=== PATIENT | female | born 1995 | race Caucasian/White ===

== ENCOUNTER → 2018-01-16 14:46 | Outpatient (CLI) | payer BC, MEDICAID, SELFPAY ==
[2018-01-16 17:14] LABS: Hematocrit 38.1 % (37-47); Hemoglobin 12.3 g/dl (12.0-15.0); Mean Corp Hgb Conc 32.3 g/gl (32-36); Mean Corpuscular Hgb 29.1 pg (27.0-32.0); Mean Corpuscular Volume 90.1 fL (81-99); Mean Platelet Vol. 10.1 fl (6.2-12.0); Platelet Count 243 K/mm3 (150-450); RBC Distribution Width CV 13.5 % (11.6-14.6); RBC Distribution Width SD 44.4 fl (35.1-43.9); Red Blood Count 4.23 M/mm3 (4.2-5.4)
[2018-01-16 17:15] LABS: Scan Indicated on CBC? Y/N NO
[2018-01-16 17:36] LABS: Free T3 2.9 pg/mL (2.18-3.98); T4 Free Direct 1.08 ng/dL (0.76-1.46); Thyroid Stim Hormone (TSH) 1.62 uIU/mL (0.358-3.74)
[2018-01-16 19:04] LABS: Chlamydia Trachomatis by PCR Negative (Negative); Neisserai gonorrhoeae by PCR Negative (Negative); Probe Check PASS; Sample Adequacy Control PASS; Specimen Processing Control PASS
[2018-01-19 10:02] LABS: Cancer Antigen 125 12.2 U/mL (0.0-38.1)
[2018-01-23 12:58] LABS: HPV Reflexed? NOT INDICATED
== END ==
PROVIDERS: Visit Provider Obstetrics & Gynecology
DX: Z12.4 Encounter for screening for malignant neoplasm of cervix (principal); Z11.3 Encounter for screening for infections with a predominantly sexual mode of transmission; N92.6 Irregular menstruation, unspecified; N93.9 Abnormal uterine and vaginal bleeding, unspecified
CPT/HCPCS: 36415; 84439; 84443; 84481; 85027; 86304; 87491; 87591; 88175; G0145

== ENCOUNTER → 2018-02-10 17:35 | Outpatient (CLI) | payer BC, MEDICAID, SELFPAY ==
--- NOTE | 2018-02-10 | IMM_PTH ---
PATIENT: DOREEN QUINONEZ LOC: [facility] U#:[id number] AGE/SX: 29/F ROOM: RE02/10/[address]: Dr. Oly Jennings MD : 1995 BED: DIS: SPEC #: [id number] RECD: 02/12/18 13:56 STATUS: CJ REQ #: [id number] DOMINGUEZ: 02/10/18 00:[address]: Oly Mendoza DEPT: IMMUNOHISTOCHEMISTRY RECD BY: Hamida Zhu ENTERED: 02/12/18 13:57 SP TYPE: IMMUNO OTHR DR: Dr. Sd Osman DO Tissues: B - Uterine cervix, NOS C - Uterine cervix, NOS Procedures: p16 (initial) KI-67 (add) PHYSICIAN & INSTITUTION [place] [id number] SPECIMEN INFORMATION: Tissue Source: B ? Cervical biopsy 12 o?clock, C - Cervical biopsy 6 o?clock Clinical Info: HGSIL Specimen Number: [id number] B & C CPT code: 00166 x2, 40569 x2 METHODOLOGY: Deparaffinized sections of prefer/formalin-fixed tissue or PAP/DQ stained slides are incubated with monoclonal/polyclonal antibodies/oligonucleotide probes. Localization is made via biotin free immunoperoxidase method. Appropriate controls are performed and reacted as expected. Results on target cell population are indicated in the following table: RESULTS: ANTIBODY / CLONE RESULT Block B P16 (E6H4) positive, block staining Ki-67 (30-9) positive, moderate Block C P16 (E6H4) positive, patchy staining Ki-67 (30-9) positive, low These tests were developed and their performance characteristics determined by [facility]. They may not have been cleared or approved by the U.S. Food and Drug Administration. The FDA has determined that such clearance or approval is not necessary. INTERPRETATION: B. Cervix, 12 o?clock, biopsy: Mild and moderate squamous dysplasia. C. Cervix, 6 o?clock, biopsy: Focal changes consistent with HPV cytopathic effects. SJ:laura 02/13/18
--- NOTE | 2018-02-10 16:50 | ECC_PTH ---
PATIENT: DOREEN QUINONEZ LOC: [facility] U#:[id number] AGE/SX: 29/F ROOM: RE02/10/[address]: Dr. Oly Jennings MD : 1995 BED: DIS: SPEC #: [id number] RECD: 02/10/18 17:22 STATUS: CJ JASMYN #: [id number] DOMINGUEZ: 02/10/18 16:[address]: Oly Mendoza DEPT: SURGICAL PATHOLOGY RECD BY: Renato Mixon ENTERED: 02/11/18 06:17 SP TYPE: ECC OTHR DR: Dr. Sd Osman DO Tissues: A - Endocervical B - Uterine cervix, NOS C - Uterine cervix, NOS D - Uterine cervix, NOS Procedures: Surgery Specimen Level IV HEADER OPERATION: Colposcopy PRE-OP DIAGNOSIS: HGSIL (R87.613) TISSUE SUBMITTED: A ? ECC, B ? Cervical biopsy 12 o?clock, C - Cervical biopsy 6 o?clock, D - Cervical biopsy 8 o?clock MICROSCOPIC DIAGNOSIS A. ECC: Scant fragments of benign endometrial tissue. B. Cervix, 12 o?clock, biopsy: Mild and focal moderate squamous dysplasia with HPV changes. See comment. C. Cervix, 6 o?clock, biopsy: A minute fragment of squamous epithelium with focal changes consistent with HPV cytopathic effects. See comment. D. Cervix, 8 o?clock, biopsy Fragment of benign endocervical mucosa, negative for dysplasia. See comment. SJ:laura 02/12/18 COMMENT B & C. Immunohistochemistry ([id number]) for surrogate HPV marker (p16) supports the above diagnosis. D. Transitional zone mucosa is not present in the submitted specimen. MICROSCOPIC DESCRIPTION Slides are reviewed. GROSS DESCRIPTION A - Received in fixative is one container labeled with the patient's name and designated ECC. The specimen consists of multiple irregular fragments of junior mucoid tissue that in aggregate measure 2 x 1 x 0.1 cm. The specimen is totally submitted in one cassette. B - Received in fixative is one container labeled with the patient's name and designated cervical biopsy 12 o'clock. The specimen consists of two irregular fragments of light junior soft tissue that in aggregate measure 0.8 x 0.3 x 0.1 cm. The specimen is totally submitted in one cassette. C - Received in fixative is one container labeled with the patient's name and designated cervical biopsy 6 o'clock. The specimen consists of multiple irregular fragments of junior mucoid tissue that in aggregate measure 0.3 x 0.3 x 0.1 cm. The specimen is totally submitted in one cassette. D - Received in fixative is one container labeled with the patient's name and designated cervical biopsy 8 o'clock. The specimen consists of one irregular fragment of light junior soft tissue that measures 0.3 x 0.3 x 0.1 cm. The specimen is totally submitted in one cassette. / SJ:rg 02/11/18 TC:5 CPT: 73628 x4
== END ==
PROVIDERS: Family Provider Family Medicine; PCP Family Medicine; Visit Provider Obstetrics & Gynecology
DX: N87.0 Mild cervical dysplasia (principal)
CPT/HCPCS: 88305; 88341; 88342

== ENCOUNTER 2018-03-19 11:16 | Day surgery (SDC) | payer BC, MEDICAID, SELFPAY ==
[2018-03-16 13:18] VITALS: BP 115/67; PULSE 68; RESP 16; TEMP 36.8; O2SAT 99; BMI 24.6
--- NOTE | 2018-03-16 13:43 | SDCEKG_ITS ---
Test Reason : Blood Pressure : / mmHG Vent. Rate : 063 BPM Atrial Rate : 063 BPM P-R Int : 118 ms QRS Dur : 084 ms QT Int : 398 ms P-R-T Axes : 035 071 052 degrees QTc Int : 407 ms Normal sinus rhythm Normal ECG Confirmed by ALLY KELLEY, TIM ([id number]), digital editor MADDISON GRANADO ([id number]) on 03/17/2018 1:28:48 PM Referred By: Oly Tanner Confirmed By:TIM CANALES MD
[2018-03-16 14:54] LABS: Hematocrit 39.5 % (37-47); Hemoglobin 12.4 g/dl (12.0-15.0); Mean Corp Hgb Conc 31.4 g/gl (32-36); Mean Corpuscular Volume 92.5 fL (81-99); Mean Platelet Vol. 9.7 fl (6.2-12.0); Platelet Count 280 K/mm3 (150-450); RBC Distribution Width SD 44.2 fl (35.1-43.9); Red Blood Count 4.27 M/mm3 (4.2-5.4); White Blood Count 6.8 K/mm3 (4.4-11.0)
[2018-03-16 15:01] LABS: Prothrombin Time (Protime)PT. 13.5 SECONDS (11.7-14.9)
[2018-03-16 15:02] LABS: Partial Thromboplast Time 28.6 Seconds (24.1-36.2)
[2018-03-16 15:03] LABS: Scan Indicated on CBC? Y/N NO
[2018-03-16 15:18] LABS: AST(SGOT) 11 U/L (15-37); Alanine Aminotransfer ALT/SGPT 17 U/L (13-56); Alkaline Phosphatase 55 U/L (45-117); Anion Gap 5 (5-15); BUN 13 mg/dL (7-18); BUN/Creat Ratio 16.9 RATIO (10-20); Bilirubin, Direct 0.17 mg/dL (0.00-0.30); Calcium,Total 9.1 mg/dL (8.5-10.1); Chloride 104 mmol/L (98-107); Creatinine, Serum 0.77 mg/dL (0.55-1.02); EST Glomerular Filtration Rate 100 mL/min (>60); Est Glom Filt Rate - Afr Amer 120 mL/min (>60); Estimated Creatinine Clearance 90.64 ml/min; Globulin 3.5 g/dL (2.2-4.2); Glucose 73 mg/dL (74-106); Potassium 4.1 mmol/L (3.5-5.1); Protein, Total 7.5 g/dL (6.4-8.2); Sodium Level 142 mmol/L (136-145)
--- NOTE | 2018-03-19 | IMM_PTH ---
PATIENT: DOREEN QUINONEZ LOC: [facility] [place] U#:[id number] AGE/SX: 22/F ROOM: RE03/19/[address]: Dr. Oly Jennings MD : 1995 BED: DIS: 03/19/2018 SPEC #: [id number] RECD: 03/23/18 13:00 STATUS: CJ JASMYN #: [id number] DOMINGUEZ: 03/19/18 00:[address]: Oly Mendoza DEPT: IMMUNOHISTOCHEMISTRY RECD BY: Hamida Zhu ENTERED: 03/23/18 13:01 SP TYPE: IMMUNO OTHR DR: Dr. Sd Osman, DO Tissues: B - Uterine cervix, NOS Procedures: p16 (initial) KI-67 (add) PHYSICIAN & INSTITUTION [place] [id number] SPECIMEN INFORMATION: Tissue Source: B ? Ectocervix, open at 5 o?clock Clinical Info: Chronic pelvic pain, high-grade cervical dysplasia Specimen Number: [id number] B1 CPT code: 98385, 69801 METHODOLOGY: Deparaffinized sections of prefer/formalin-fixed tissue or PAP/DQ stained slides are incubated with monoclonal/polyclonal antibodies/oligonucleotide probes. Localization is made via biotin free immunoperoxidase method. Appropriate controls are performed and reacted as expected. Results on target cell population are indicated in the following table: RESULTS: ANTIBODY / CLONE RESULT Block B1 P16 (E6H4) positive, block staining Ki-67 (30-9) positive, moderate These tests were developed and their performance characteristics determined by [facility]. They may not have been cleared or approved by the U.S. Food and Drug Administration. The FDA has determined that such clearance or approval is not necessary. INTERPRETATION: B. Ectocervix, open at 5 o?clock: Mild and moderate squamous dysplasia. LA:laura 03/24/18
[2018-03-19 11:38] VITALS: BP 118/56; PULSE 69; RESP 16; TEMP 36.7; O2SAT 100; BMI 24.6
[2018-03-19 11:43] LABS: Internal QC Validated? YES +Cl - CLEAR BKGD; Pregnancy, Urine Negative Negative
--- NOTE | 2018-03-19 12:45 | TISS_PTH ---
PATIENT: DOREEN QUINONEZ LOC: [facility] [place] U#:[id number] AGE/SX: 22/F ROOM: RE03/19/[address]: Dr. Oly Jennings MD : 1995 BED: DIS: 03/19/2018 SPEC #: [id number] RECD: 03/19/18 14:23 STATUS: CJ JASMYN #: [id number] DOMINGUEZ: 03/19/18 12:[address]: Oly Mendoza DEPT: SURGICAL PATHOLOGY RECD BY: Erika Ortiz ENTERED: 03/20/18 08:48 SP TYPE: Tissue Bx OTHR DR: Dr. Sd Osman, DO Tissues: A - TISSUE SURGICALLY REMOVED B - Uterine cervix, NOS C - Uterine cervix, NOS Procedures: Surgery Specimen Level IV Surgery Specimen Level V HEADER OPERATION: Diagnostic laparoscopy, LEEP PRE-OP DIAGNOSIS: Chronic pelvic pain, high grade cervical dysplasia TISSUE SUBMITTED: A. Left uterosacral biopsy, B. Ectocervix, open at 5 o?clock, C. Endocervix MICROSCOPIC DIAGNOSIS A. Left uterosacral, biopsy: Endometriosis. Focal chronic inflammation. B. Ectocervix, LEEP conization: Mild and focal moderate squamous dysplasia with HPV changes (HGSIL and SCAR I-II). Focal chronic inflammation and squamous metaplasia. Resection margins are free of dysplastic changes. C. Endocervix, curettings: Fragments of benign endocervical epithelium, blood and mucous negative for dysplasia. SJ:laura 03/23/18 COMMENT B. Immunohistochemistry ([id number]) for surrogate HPV marker (p16) supports the above diagnosis. Please make reference to previous specimen ([id number]) cervix, 12 o?clock, biopsy with diagnosis of mild and focal moderate squamous dysplasia with HPV changes. MICROSCOPIC DESCRIPTION Slides are reviewed. GROSS DESCRIPTION A - Received in fixative is one container labeled with the patient's name and designated left uterosacral biopsy. The specimen consists of a piece of congested soft tissue measuring 0.8 x 0.5 x 0.1 cm. The specimen is totally submitted in one cassette. B - Received in fixative is one container labeled with the patient's name and designated ectocervix, open at 5 o'clock. The specimen consists of a previously opened junior, indurated piece of tissue consistent with LEEP conization measuring 3 x 1.5 x 0.5 cm. The specimen is open identified as 5 o?clock position. No mucosal lesion is identified. The nonmucosal surface is inked black. The specimen is serially sectioned and submitted entirely in four cassettes as follows: 1 ? 12 to 3 o?clock, 2 ? 3 to 6 o?clock, 3 ? 6 to 9 o?clock, 4 ? 9 to 12 o?clock. C - Received in fixative is one container labeled with the patient's name and designated endocervix. The specimen consists of multiple fragments of junior, hemorrhagic soft tissue that in aggregate measure 0.5 x 0.5 x 0.1 cm. Please note there are multiple small fragments of gauze also in the specimen. The specimen is totally submitted in one cassette. / LA:laura 03/20/18 TC:5 CPT: 94478 x2, 95929
[2018-03-19] MEDS: Bupivacaine Mpf 0.5% 30 ML VIAL (13:40)
[2018-03-19] MEDS: FERRIC SUBSULFATE 8 GM SOLN (13:50)
[2018-03-19 14:16] VITALS: BP 118/56; BP 130/95; BP 131/96; PULSE 82; PULSE 87; RESP 14; RESP 16; TEMP 36.5; O2SAT 100
--- NOTE | 2018-03-19 14:23 | OP.PCM_ITS ---
Problem List (1) Chronic pelvic pain in female Status: Acute (2) SCAR II (cervical intraepithelial neoplasia II) Status: Acute Comment: SCAR 2 at 12 o'clock on bx Report of Operation Date of Procedure: 03/19/18 Pre-Operative Diagnosis: CIN2, chronic pelvic pain Surgery/Procedure Performed:: CIN2, chronic pelvic pain Description of Surgical Findings:: Brown endometriotic appearing lesion at left uterosacral ligament Normal tubes and ovaries and uterus special education paraeducator: Autumn Virgen Type of Anesthesia:: General Anesthesiologist: Devonte Huffman Specimen's removed: 1. left uterosacral peritoneum. 2. ectocervix. 3. endocervical curettings Drains: lara - 100 ml Estimated Blood Loss (mL): 50 Description of Procedure: The patient was brought to the operating room and signed and was performed. She is placed in a dorsal supine position and induced under general anesthesia and intubated. She was repositioned into dorsal lithotomy and her arms were tucked at her sides. An examination under anesthesia was performed. The perineum and abdomen were prepped and draped in sterile fashion. The patient was placed into high lithotomy and a Lara catheter placed into the bladder. He weighted speculum placed to the vagina cervix visualized and sounded the uterus. A HUMI uterine manipulator was placed and secured. Speculum was removed from the vagina. Patient was then placed into low lithotomy and attention turned to the abdomen.. An inferior umbilical incision was made using a scalpel and Veress needle placed with successful hanging drop test and no aspirate. The abdomen was insufflated to 15 mmHg. Veress needle was removed and a 5 mm port was placed under laparoscopic guidance confirming entry into the abdominal cavity. A second suprapubic incision was made and 5 mm port was placed at this site. The abdomen and pelvis were inspected and notable for a left uterosacral lesion but otherwise normal-appearing. I placed a third incision and the left lower quadrant under transillumination and a 5 mm port was subsequently placed. The patient was placed into Trendelenburg and the left uterosacral peritoneum was sharply and bluntly dissected from the underlying ligamentous tissue. Bleeding was controlled using the monopolar [place]. The pelvis was suction irrigated and Jessica was placed at the site for additional hemostasis. The patient was flattened, abdomen desufflated and the ports removed from the abdomen. Incisional sites were closed using 4-0 Monocryl. A total of 10 cc of 1% lidocaine were placed at the site for additional analgesia. Attention was then turned to the perineum. The patient was then placed into high lithotomy. An insulated speculum was placed into the vagina and Monsel solution applied to the cervix with Lugol's resistance going clockwise between 5 and 12:00. A 2 cm loop electrode was used to perform a LEEP. The ectocervix is open at 5:00. Endocervical curettings were obtained. The ball electrode was utilized to fulgurate the excisional cervical bed and Monsel's was applied followed by 3 minutes compression however there was persistent bleeding. 0 Vicryl suture was used to Place Sturmdorf sutures with excellent hemostasis attained. The speculum was removed as well as the Lara catheter. The patient was placed into dorsal supine position, awakened, extubated and transferred to the recovery room without complication. Sponge and needle counts were correct ? 2. The patient tolerated the procedure well
--- NOTE | 2018-03-19 14:25 | DCINST_ITS ---
Discharge Diet: No Restrictions Discharge Activity: Return to Normal Activity, May not drive while taking narcotic pain medications., May Shower, - - No tub bath for 2-4 weeks May resume sexual activity in: 4-6 weeks Lifting Restrictions: 10-20 lb Call your doctor if your incision/area has: Continuous Slow Oozing, Sudden Increased Bleeding, Increased Pain/ Swelling, Increased Redness Call your doctor if you observe: Fever of 101 or Higher, Inability to urinate, Inability to have a bowel movement, Using more than one pad per hour, Shortness of breath, Chest pain, Calf discomfort, Uncontrolled pain Suture Line Care: Avoid Pulling/Pushing Remove Dressing in (days):: 1 Cleanse incision/area with: Soap & Water Allergies/Adverse Reactions: Allergies cefaclor [From Ceclor] Allergy (Verified 03/16/18 13:14) Hives Medications to take at Discharge Aspirin/Acetaminophen/Caffeine [Excedrin Extra Strength Caplet] 1 - 2 tab PO PRN PRN 03/16/18 Gabapentin [Neurontin] 300 mg PO TID PRN PRN 03/16/18 Paroxetine HCl [Paxil] 30 mg PO DAILY 03/16/18 Docusate Sodium [Colace] 100 mg PO BID PRN PRN #60 cap 03/19/18 Oxycodone [Oxyir] 5 mg PO Q4H PRN PRN 3 Days #18 tablet 03/19/18 The following prescriptions were given: Oxycodone [Oxyir] 5 mg PO Q4H PRN PRN 3 Days #18 tablet PRN Reason: Severe Pain (6-10/10) Docusate Sodium [Colace] 100 mg PO BID PRN PRN #60 cap PRN Reason: Constipation Primary Care Physician: Sd Osman [Primary Care Provider] - Test Results: Test results from this visit will be discussed in further detail at your follow- up appointment, if applicable. Please Follow Up With: Oyl Tanner MD When: 2-4 weeks
[2018-03-19 14:30] VITALS: BP 118/56; BP 123/85; PULSE 79; RESP 16; O2SAT 100
[2018-03-19 14:45] VITALS: BP 118/56; BP 123/73; PULSE 66; RESP 16; O2SAT 99
[2018-03-19 15:00] VITALS: BP 113/78; BP 118/56; PULSE 70; RESP 16; TEMP 36.6; O2SAT 97
== END 2018-03-19 15:57 | disposition home or self-care (01) ==
LOC: SDC 11:17 → AC 11:17
PROVIDERS: Anesthesiology; Family Provider Family Medicine; PCP Family Medicine; Visit Provider Obstetrics & Gynecology
PROC: (CPT 49320; principal; 2018-03-19 12:30)
DX: N87.1 Moderate cervical dysplasia (principal); F41.9 Anxiety disorder, unspecified; F17.200 Nicotine dependence, unspecified, uncomplicated; Z79.899 Other long term (current) drug therapy; K58.9 Irritable bowel syndrome, unspecified; G43.909 Migraine, unspecified, not intractable, without status migrainosus
CPT/HCPCS: 57522; 36415; 80048; 80076; 81025; 85027; 85610; 85730; 86850; 86900; 88305; 88307; 88341; 88342; 93005; J7120; J2405

== ENCOUNTER → 2018-07-20 16:52 | Outpatient (CLI) | payer BC, MEDICAID, SELFPAY ==
--- OUTSIDE RECORDS SUMMARY | 2018-09-01 16:12 | XMS RPT_ITS ---
:1995 Author Organization OHIP Care Team Providers Name Role Phone THIERRY RILEY Admitting Unavailable THIERRY RILEY Attending Unavailable LUANA CHEATHAM (CHETNA) Referring Unavailable LUANA CHEATHAM (ROBSONC) Referring Unavailable SD FERNANDES Referring Unavailable ANTONINA BOOKER Attending Unavailable THIERRY RILEY Referring Unavailable THIERRY RILEY Attending Unavailable RILEYTRACETHIERRY M Referring Unavailable RILEYPAULMA M Referring Unavailable ANTONINA BOOKER Attending Unavailable ANTONINA BOOKER Referring Unavailable HENRY, CHERI Referring Unavailable HENRY CHERI Attending Unavailable RILEY, THIERRY M Referring Unavailable HENRY, CHERI Referring Unavailable HENRY, CHERI Referring Unavailable Elder-Dick, Summer Attending Unavailable Jerrod-Dick, Summer Attending Unavailable Sd Fernandes Primary Care Unavailable Elder-Dick, Summer Referring Unavailable Elder-Dick, Summer Attending Unavailable Elder-Dick, Summer Referring Unavailable Sd Fernandes Primary Care Unavailable Sd Canales Attending Unavailable Jerrod-Dick, Summer Referring Unavailable Sd Fernandes Attending Unavailable Sd Fernandes Primary Care Unavailable Elder-Dick, Summer Attending Unavailable PROBLEMS PROBLEMS DATE TYPE CONDITION / CODE ATTENDING STATUS SOURCE 07/20/2018 Unknown N39.0 - Urinary Jerrod-Dick, Active [place] tract infection, [facility] site not specified / Hospital N39.0(ICD-10) Repository 07/20/2018 Unknown N30.90 - Cystitis, Elder-Dick, Active [place] unspecified without [facility] hematuria / Hospital N30.90(ICD-10) Repository 03/19/2018 Unknown Z98.890 - Other Eldre-Dick, Active [place] specified [facility] postprocedural Hospital states / Repository Z98.890(ICD-10) 04/20/2018 Unknown Z01.810 - Encounter Sd Canales Active [place] for preprocedural [facility] examination / Repository Z01.810(ICD-10) 02/13/2018 Active Syncope and collapse NA Active [facility] / R55(ICD-10) Clinic Main [place] Repository 02/13/2018 Active Compression of brain NA Active [facility] / G93.5(ICD-10) Clinic Other [place] Repository 02/11/2018 Unknown N92.2 - Excessive Elder-Dick, Active [place] menstruation at [facility] puberty / Hospital N92.2(ICD-10) Repository 01/21/2018 Unknown Z12.4 - Encounter Jerrod-Dick, Active [facility] for screening for [facility] malignant neoplasm [facility] of cervix / Repository Z12.4(ICD-10) 12/04/2017 Active Unknown / THIERRY RILEY Active [place] UNK(Unknown) M Clinic Other [place] Repository PROCEDURES PROCEDURES No Procedure Records FoundRESULTS RESULTS Observed: 07/20/2018 Status: F Source: [place] CULTURE, URINE 1:50 PM [facility] REPOSITORY Urine Culture Culture exhibits no growth. Performed By: #### [id number] #### [facility] [place], [id number] PROGRESS Observed: 07/14/2018 Status: COMPLETED Source: BELLE 9:04 AM [facility] REPOSITORY HNO ID: [id number] Author: Nola (Rn) Benjamin RN Service: (none) Author Type: Registered Nurse Type: Progress Notes Filed: 07/14/2018 9:07 AM Note Text: Test cancelled because patient missed her stress echo prior to tilt. The patient will rescheduled both CNOV Observed: 07/13/2018 Status: COMPLETED Source: BELLE 1:45 PM [facility] REPOSITORY Office Visit (SYNCMN) RADHA ROBLES ([id number]) 1995 F CHT Date Time Provider Department 07/13/18 1:45 PM [facility] NURSE SYNCMN During your visit today, we recorded the following information about you: Nola Linn RN, RN 07/14/2018 9:07 AM Signed Test cancelled because patient missed her stress echo prior to tilt. The patient will rescheduled both Referring Provider: CHERI FIGUEROA [[id number]] Allergies As of Date: 07/13/2018 Noted Allergy Reaction CECLOR (CEFACLOR) 09/15/2017 4 - Hives Date Reviewed: 07/13/2018 Reviewed by: Nola PondRn) Benjamin RN - Fully Assessed Primary Visit Diagnosis:Palpitations [R00.2] Prescriptions as of 07/13/2018 Sig: PAROXETINE 20 MG TABLET Take 20 mg by mouth once boom* Problem List As Of Date: 07/13/2018 (None) Encounter Status:Closed by NOLA LINN on 07/14/18 PROGRESS Observed: 06/01/2018 Status: COMPLETED Source: BELLE 3:30 PM [facility] REPOSITORY HNO ID: [id number] Author: Kurt Dia (Tech) Service: (none) Author Type: Callisthenics Instructor Type: Progress Notes Filed: 06/01/2018 3:32 PM Note Text: EVENT MONITOR DISPOSABLE PATCH INSTRUCTIONS Patient Name: Radha Robles Clinic Number: [id number] Skin prepped and cleansed with alcohol Patch secured to prepped area Monitor Activated Serial #: [id number] Patient Instructed: 1.) Prescribed order timeframe 2.) Bathing guidelines 3.) Usage of event button and diary documentation 4.) Return of monitor at the end of prescribed order 5.) Call with problems [phone] or [phone]. [phone] Patient expresses a good understanding of instructions LIYAH Delgado CNCNPATED Observed: 06/01/2018 Status: COMPLETED Source: BELLE 2:30 PM [facility] REPOSITORY Education (CARDMN) RADHA ORBLES ([id number]) 1995 F [facility] Date Time Provider Department 06/01/18 2:30 PM [facility] CARDMN Reason for Visit: Holter Monitor Application [261] Progress Notes: LIYAH Delgado 06/01/2018 3:32 PM Signed EVENT MONITOR DISPOSABLE PATCH INSTRUCTIONS Patient Name: Radha Robles Clinic Number: [id number] Skin prepped and cleansed with alcohol Patch secured to prepped area Monitor Activated Serial #: [id number] Patient Instructed: 1.) Prescribed order timeframe 2.) Bathing guidelines 3.) Usage of event button and diary documentation 4.) Return of monitor at the end of prescribed order 5.) Call with problems [phone] or [phone] ext. [phone] Patient expresses a good understanding of instructions LIYAH Delgado Primary Visit Diagnosis:Syncope, unspecified syncope type [R55] Other Visit Diagnosis:Palpitations [R00.2] During your visit today, we recorded the following information about you: Allergies As of Date: 06/01/2018 Noted Allergy Reaction CECLOR (CEFACLOR) 09/15/2017 4 - Hives Date Reviewed: 06/01/2018 Reviewed by: Saima Barlow RN - Fully Assessed Prescriptions as of 06/01/2018 Sig: PAROXETINE 20 MG TABLET Take 20 mg by mouth once boom* Encounter Status:Closed by KURT CASTLE on 06/01/18 PROGRESS Observed: 06/01/2018 Status: COMPLETED Source: BELLE 1:35 PM [facility] REPOSITORY HNO ID: [id number] Author: Cheri Figueroa DO Service: (none) Author Type: Physician Type: Progress Notes Filed: 08/02/2018 2:07 PM Note Text: [facility] [place] Rebecca Brush Department of Cardiovascular Medicine SECTION OF CARDIAC PACING and ELECTROPHYSIOLOGY OUTPATIENT VISIT DATE June 01, 2018 OUTPATIENT VISIT TYPE CONSULTATION ADDENDUM: she no showed for the stress echo and tilt was canceled if she wishes to reschedule she should contact the office Cheri Figueroa Jr, DO PRIMARY CARE PHYSICIAN: SD FERNANDES [address] [place] [address] REFERRING PHYSICIAN Thierry Riley MD [address] [facility] [address] HISTORY OF PRESENT ILLNESS: Cardiac consultation at the request of Dr. Thierry Riley.A copy of this consultation note will be provided to the requesting physician by way of shared Medical record or letter to requesting physician via US mail. NURSING INTAKE HISTORY: Ms. Robles is a 22 year old female who presents today for syncope. She has a past medical history of depression, anxiety, endometriosis and Chiari malformation. Patient has been having symptoms for a couple of years now. The main symptoms she experiences headaches, lightheadedness, and syncope. Her last syncopal episode was last year. She reports no feeling in her first 3 toes on both feet. She was prescribed gabapentin, but she stopped taking it because it was not working for her. She states that If she puts her arms up for more than a minute she will get numbness in the arms, they feel like jello. She also endorses brain fog, memory difficulties, balance issues, heart racing and chest pain. She experiences a racing heart sometimes with activity. This can last up to an hour, even once she sits down and relaxes. The heart racing is accompanied by chest pain. PAST MEDICAL HISTORY Diagnosis Date - Chiari malformation type I (HCC) - Depression - Endometriosis - IRON (generalized anxiety disorder) - Syncope PAST SURGICAL HISTORY Procedure Laterality Date - PAST SURGICAL HISTORY OF laproscopy for endometriosis and cervical CA SOCIAL HISTORY Social History Substance Use Topics - Smoking status: Current Every Day Smoker Packs/day: 0.50 Years: 7.00 Types: Cigarettes - Smokeless tobacco: Never Used - Alcohol use No FAMILY HISTORY Problem Relation Age of Onset - Diabetes Mother - Cancer Mother Cervical - Thyroid Father Thyroidectomy - Cancer Sister Cervical - Alcohol/Drug Sister - Cancer Maternal Grandmother Uterine and Cervical - Cancer Maternal Grandfather - No Known Problems Paternal Grandmother - Diabetes Paternal Grandfather ALLERGIES: ALLERGIES Allergen Reactions - Ceclor [Cefaclor] Hives MEDICATIONS: PARoxetine (PAXIL) 20 mg tablet Take 20 mg by mouth once daily. REVIEW OF SYSTEMS: GENERAL: Positive for:Weight loss , Weakness and Sleep difficulties HEENT: Positive for:Headache, Impaired Vision, Glasses, Hearing Impairment, Ringing in Ears, Nosebleeds, Poor Dental Care and Bleeding Gums NECK: Positive for: Swelling, Pain and Stiffness RESPIRATORY: Positive for: Cough, Blood in Sputum, Shortness of breath and Wheezing GASTROINTESTINAL: Positive for: Trouble swallowing, Heartburn, Change in bowel habits, Blood in stool and Dark black stools MUSCULOSKELETAL: Positive for: Muscle or joint pain, Stiffness and Joint swelling NEUROLOGIC/PSYCHIATRIC: Positive for: Weakness, Paralysis, Numbness, Tingling, Tremor, Nervousness or anxiety, Depressed mood, Memory loss SKIN: Positive for: Itching HEMATOLOGICAL/LYMPHATIC: Positive for: Easy bruising and Easy bleeding ENDOCRINE: Positive for: Heat or cold intolerance, Excessive sweating, Frequent urination and Frequent thirst Saima Yen BRAVO PHYSICAL EXAMINATION: Pulse (!) 53 Ht 157.5 cm (5' 2) Wt 62.1 kg (137 lb) BMI 25.06 kg/m? BP w/Orthostatic Vitals Date and Time Orthostatic BP Orthostatic Pulse BP Pulse BP Position BP Site BP Cuff Size 06/01/18 1406 111/77 80 -- -- Standing Left Arm Regular Adult 06/01/18 1401 110/72 64 -- -- Sitting Left Arm Regular Adult 06/01/18 1359 110/75 56 -- -- Supine Left Arm Regular Adult 06/01/18 1352 -- -- -- (!) 53 -- -- -- I personally interviewed, examined, confirmed and edited the history documented by the Nurse. In addition to the below note, I attest that I have personally re-taken the History, confirmed the ROS, PMX, PSHx, Medications and re-performed the physical examination. Below reflects my service. Patient presents to the Department of Cardiology, Section of Cardiac Electrophysiology, Center for Syncope and Autonomic Disorders, on June 01 at the request of her [facility] grain spouter Dr. riley to investigate multiple symptoms as above including recurrent chest pain and tightnes,s stabbing, previous syncope, lightheadedness dizziness, suspected to reflect autonomic dysfunction. My findings, recommendations, and plan of care will be added to the electronic medical record and forwarded to the [facility] physicians by [place] and to the patient and the local physicians by [place]. mail. Patient is 22 years old but a history of structural heart disease or arrhythmias. She has no diabetes or hypertension. She's not had an echo stress or monitor. Was concern for pseudotumor cerebri was previously on Diamox. Her last syncopal event was January 2017. She gets multiple headaches, paresthesias. She's had extensive cerebrovascular imaging has been shown to have a Chiari malformation an MRI. She is a heavy smoker up to half pack a day. She reports ongoing cognitive issues as well and frequently has imbalance. She follows no special diet but she does try to augment fluids with Gatorade. She exercises regularly with spinning. The patient has no known coronary artery disease, diabetes, hypertension, cancer, DVTs, PE, infarction, congenital heart disease, valvular heart disease, or congestive heart failure. The patient denies exertional angina, sustained palpitations, paroxysmal nocturnal dyspnea, peripheral edema, nitroglycerin use. The patient has no history of rheumatic disease, hepatic disease, renal disease, thyroid disease, or pulmonary disease. The patient has never had a temporary or permanent pacemaker, electrophysiologic study, ablation, cardiac catheterization, DC cardioversion or been treated with an anti-arrhythmic medication. The patient has never had a cardioembolic event, stroke, TIA, or been treated with coumadin or newer anticoagulation agents. The patient has never had a fat pad, muscle, nerve, skin or salivary biopsy, to rule out small fiber neuropathy, amyloidosis, mitochondrial disease, Sjogren's etc. Previous medications used: Midodrine-n Florinef-n Droxydopa-n Mestinon-n Beta blockers-n Ivabradine-n Serotonin drugs-y Anticholinergics-n The comprehensive review of systems of the nurse practitioner was repeated and verified by me. I performed a comprehensive physical examination. PHYSICAL EXAMINATION GENERAL: Well developed, well-nourished female in no acute cardiopulmonary distress. HEENT: Extraocular movements intact, pupils equally reactive to light and accommodation without jugular venous distention, carotid bruits, lymphadenopathy, or thyromegaly. LUNGS: Clear to auscultation and percussion. HEART: Rate and rhythm regular without gallops, murmurs, or rubs. ABDOMEN: Soft without masses or hepatosplenomegaly. No pain, rebound, guarding, or rigidity. EXTREMITIES: Free of peripheral edema. Pulses are intact. NEUROLOGIC: Grossly normal without focal neurologic deficit or lateralizing signs. EKG reveals normal sinus rhythm, normal [place] and QRS intervals, no evidence of long QT interval, accessory pathway, Brugada's syndrome, previous infarction, or early repolarization. Diagnosis:SINUS BRADYCARDIA OTHERWISE NORMAL ECG Confirmed by Otilio Dawson ([id number]) on 06/02/2018 10:10:23 AM ? Ventricular Rate : 53 ?BPM Atrial Rate : 53 ?BPM P-R Interval : 128 ?ms QRS Duration : 84 ?ms Q-T Interval : 412 ?ms QTC Calculation(Bezet) : 386 ?ms P [place] : 29 ?degrees R [place] : 50 ?degrees T [place] : 28 ?degrees Assessment/Plan: 22-year-old female with extensive symptoms as above suspected to reflect autonomic dysfunction. We will proceed with assessment for arrhythmias and structural heart disease with a stress echocardiogram, a prolonged ambulatory event monitor. We'll assess for orthostatic tachycardia with a tilt table test. We had an extensive discussion about our current understanding and approach to patients with orthostatic intolerance and how there is no unified theory about the pathophysiology and etiology of the relatively enigmatic disorder, but that our approaches focuses on investigation of underlying hemodynamic, cardiovascular and neurologic causes. If tilt is abnormal will perform comprehensive autonomic and hemodynamic assessment. We will obtain a QSART, autonomic reflexes, hemo echo and radionuclide hemodynamic study. We reviewed the perfunctory, empiric, nonpharmacologic approaches to autonomic dysfunction symptom amelioration including 5-7 g sodium diet, 1 or 2 L of sports drinks daily, knee-high, thigh-high or waist- high custom fitted compression stockings. 4-6 inch elevation of the head of the bed, and regular exercise, which could initially consist of non-gravitational exercise, so called Marquez protocol, consisting of aqua therapy, water walking, recumbent bike, NuStep, rowing machine et cetera, 3 or 4 times a week, 30-40 minutes and progressing to conventional exercise as tolerated. She absolutely has to discontinue smoking immediately, not only for obvious negative cardiovascular and pulmonary consequences but especially due to the well known deleterious effects of nicotine on the autonomic nervous system. she completed a ZIO patch Patient had a min HR of 43 bpm, max HR of 178 bpm, and avg HR of 85 bpm. Predominant underlying rhythm was Sinus Rhythm. Possible Ectopic Atrial Rhythm was present. Isolated SVEs were rare (<1.0%), and no SVE Couplets or SVE Triplets were present. Isolated VEs were rare (<1.0%), and no VE Couplets or VE Triplets were present. ? I reviewed the entire Zio Patch event recorder report and strips in detail and below reflects my interpretation. ? Patient utilized a event recorder from June 01 until June 15 for 13 days of data. There are 26 triggered activations for sinus rhythm and PACs. There were no diary entries. Most of the symptomatic triggers showed normal sinus rhythm with normal rates although there was occasionally sinus tachycardia. There was no significant ventricular ectopy. ? ? I suggested they contact my office in a week or so after the tests to review preliminary results and recommendations with my nurse practitioner and I will provide detailed summary of their visit with my suggestions. This note was partially generated using [employer] voice recognition system, and there may be some incorrect words, spellings, and punctuation that were not noted in checking the note before saving. Gabriele Figueroa DO CC: rosemary pt jhony fisher ECG COMPLETE W Observed: 06/01/2018 Status: F Source: BELLE INTERPRETATION 1:16 PM [facility] REPOSITORY NAME : RADHA ROBLES PID : [id number] : 1995 Gender : Female Race : ORD : [id number] Procedure Date : Jun 01 2018 13:16:52 Edit Date : Jun 02 2018 10:10:37 Diagnosis:SINUS BRADYCARDIA OTHERWISE NORMAL ECG Confirmed by Otilio Dawson ([id number]) on 06/02/2018 10:10:23 AM Ventricular Rate : 53 BPM Atrial Rate : 53 BPM P-R Interval : 128 ms QRS Duration : 84 ms Q-T Interval : 412 ms QTC Calculation(Bezet) : 386 ms P Tucson : 29 degrees R Tuc[place] : 50 degrees T [place] : 28 degrees Test Reason : Location : 314 : [facility] J-4 Overread By : Otilio Dawson Edited By : Otilio Dawson Referred By : CHERI FIGUEROA Acquired by : ANALILIA LOVE Observed: 06/01/2018 Status: COMPLETED Source: BELLE 1:15 PM [facility] REPOSITORY Office Visit (SYNCMN) DEVIFERMIN DAVISHEATHER aMrtin ([id number]) 1995 F CHT Date Time Provider Department 06/01/18 1:15 PM CHERI FIGUEROA SYNCMN During your visit today, we recorded the following information about you: Pulse Weight Height 53/minute 62.1 kg 1.575 m Cheri Figueroa Jr, DO, DO 07/06/2018 1:26 PM Signed Patient had a min HR of 43 bpm, max HR of 178 bpm, and avg HR of 85 bpm. Predominant underlying rhythm was Sinus Rhythm. Possible Ectopic Atrial Rhythm was present. Isolated SVEs were rare (<1.0%), and no SVE Couplets or SVE Triplets were present. Isolated VEs were rare (<1.0%), and no VE Couplets or VE Triplets were present. I reviewed the entire Zio Patch event recorder report and strips in detail and below reflects my interpretation. Patient utilized a event recorder from June 01 until June 15 for 13 days of data. There are 26 triggered activations for sinus rhythm and PACs. There were no diary entries. Most of the symptomatic triggers showed normal sinus rhythm with normal rates although there was occasionally sinus tachycardia. There was no significant ventricular ectopy. Cheri Figueroa Jr, DO July 05, 2018 4:10 PM Cheri Figueroa Jr, DO, DO 08/02/2018 2:07 PM Addendum [facility] [place] Rebecca Brush Department of Cardiovascular Medicine SECTION OF CARDIAC PACING and ELECTROPHYSIOLOGY OUTPATIENT VISIT DATE June 01, 2018 OUTPATIENT VISIT TYPE CONSULTATION ADDENDUM: she no showed for the stress echo and tilt was canceled if she wishes to reschedule she should contact the office Cheri Figueroa Jr, DO PRIMARY CARE PHYSICIAN: SD FERNANDES [address] [place] [address] REFERRING PHYSICIAN Thierry Riley MD [address] [facility] [address] HISTORY OF PRESENT ILLNESS: Cardiac consultation at the request of Dr. Thierry Riley.A copy of this consultation note will be provided to the requesting physician by way of shared Medical record or letter to requesting physician via US mail. NURSING INTAKE HISTORY: Ms. Robles is a 22 year old female who presents today for syncope. She has a past medical history of depression, anxiety, endometriosis and Chiari malformation. Patient has been having symptoms for a couple of years now. The main symptoms she experiences headaches, lightheadedness, and syncope. Her last syncopal episode was last year. She reports no feeling in her first 3 toes on both feet. She was prescribed gabapentin, but she stopped taking it because it was not working for her. She states that If she puts her arms up for more than a minute she will get numbness in the arms, they feel like jello. She also endorses brain fog, memory difficulties, balance issues, heart racing and chest pain. She experiences a racing heart sometimes with activity. This can last up to an hour, even once she sits down and relaxes. The heart racing is accompanied by chest pain. PAST MEDICAL HISTORY Diagnosis Date - Chiari malformation type I (HCC) - Depression - Endometriosis - IRON (generalized anxiety disorder) - Syncope PAST SURGICAL HISTORY Procedure Laterality Date - PAST SURGICAL HISTORY OF laproscopy for endometriosis and cervical CA SOCIAL HISTORY Social History Substance Use Topics - Smoking status: Current Every Day Smoker Packs/day: 0.50 Years: 7.00 Types: Cigarettes - Smokeless tobacco: Never Used - Alcohol use No FAMILY HISTORY Problem Relation Age of Onset - Diabetes Mother - Cancer Mother Cervical - Thyroid Father Thyroidectomy - Cancer Sister Cervical - Alcohol/Drug Sister - Cancer Maternal Grandmother Uterine and Cervical - Cancer Maternal Grandfather - No Known Problems Paternal Grandmother - Diabetes Paternal Grandfather ALLERGIES: ALLERGIES Allergen Reactions - Ceclor [Cefaclor] Hives MEDICATIONS: PARoxetine (PAXIL) 20 mg tablet Take 20 mg by mouth once daily. REVIEW OF SYSTEMS: GENERAL: Positive for:Weight loss , Weakness and Sleep difficulties HEENT: Positive for:Headache, Impaired Vision, Glasses, Hearing Impairment, Ringing in Ears, Nosebleeds, Poor Dental Care and Bleeding Gums NECK: Positive for: Swelling, Pain and Stiffness RESPIRATORY: Positive for: Cough, Blood in Sputum, Shortness of breath and Wheezing GASTROINTESTINAL: Positive for: Trouble swallowing, Heartburn, Change in bowel habits, Blood in stool and Dark black stools MUSCULOSKELETAL: Positive for: Muscle or joint pain, Stiffness and Joint swelling NEUROLOGIC/PSYCHIATRIC: Positive for: Weakness, Paralysis, Numbness, Tingling, Tremor, Nervousness or anxiety, Depressed mood, Memory loss SKIN: Positive for: Itching HEMATOLOGICAL/LYMPHATIC: Positive for: Easy bruising and Easy bleeding ENDOCRINE: Positive for: Heat or cold intolerance, Excessive sweating, Frequent urination and Frequent thirst Saima Yen RN PHYSICAL EXAMINATION: Pulse (!) 53 Ht 157.5 cm (5' 2) Wt 62.1 kg (137 lb) BMI 25.06 kg/m? BP w/Orthostatic Vitals Date and Time Orthostatic BP Orthostatic Pulse BP Pulse BP Position BP Site BP Cuff Size 06/01/18 1406 111/77 80 -- -- Standing Left Arm Regular Adult 06/01/18 1401 110/72 64 -- -- Sitting Left Arm Regular Adult 06/01/18 1359 110/75 56 -- -- Supine Left Arm Regular Adult 06/01/18 1352 -- -- -- (!) 53 -- -- -- I personally interviewed, examined, confirmed and edited the history documented by the Nurse. In addition to the below note, I attest that I have personally re-taken the History, confirmed the ROS, PMX, PSHx, Medications and re- performed the physical examination. Below reflects my service. Patient presents to the Department of Cardiology, Section of Cardiac Electrophysiology, Center for Syncope and Autonomic Disorders, on June 01 at the request of her [facility] grain spouter Dr. riley to investigate multiple symptoms as above including recurrent chest pain and tightnes,s stabbing, previous syncope, lightheadedness dizziness, suspected to reflect autonomic dysfunction. My findings, recommendations, and plan of care will be added to the electronic medical record and forwarded to the [facility] physicians by [place] and to the patient and the local physicians by [place] mail. Patient is 22 years old but a history of structural heart disease or arrhythmias. She has no diabetes or hypertension. She's not had an echo stress or monitor. Was concern for pseudotumor cerebri was previously on Diamox. Her last syncopal event was January 2017. She gets multiple headaches, paresthesias. She's had extensive cerebrovascular imaging has been shown to have a Chiari malformation an MRI. She is a heavy smoker up to half pack a day. She reports ongoing cognitive issues as well and frequently has imbalance. She follows no special diet but she does try to augment fluids with Gatorade. She exercises regularly with spinning. The patient has no known coronary artery disease, diabetes, hypertension, cancer, DVTs, PE, infarction, congenital heart disease, valvular heart disease, or congestive heart failure. The patient denies exertional angina, sustained palpitations, paroxysmal nocturnal dyspnea, peripheral edema, nitroglycerin use. The patient has no history of rheumatic disease, hepatic disease, renal disease, thyroid disease, or pulmonary disease. The patient has never had a temporary or permanent pacemaker, electrophysiologic study, ablation, cardiac catheterization, DC cardioversion or been treated with an anti-arrhythmic medication. The patient has never had a cardioembolic event, stroke, TIA, or been treated with coumadin or newer anticoagulation agents. The patient has never had a fat pad, muscle, nerve, skin or salivary biopsy, to rule out small fiber neuropathy, amyloidosis, mitochondrial disease, Sjogren's etc. Previous medications used: Midodrine-n Florinef-n Droxydopa-n Mestinon-n Beta blockers-n Ivabradine-n Serotonin drugs-y Anticholinergics-n The comprehensive review of systems of the nurse practitioner was repeated and verified by me. I performed a comprehensive physical examination. PHYSICAL EXAMINATION GENERAL: Well developed, well-nourished female in no acute cardiopulmonary distress. HEENT: Extraocular movements intact, pupils equally reactive to light and accommodation without jugular venous distention, carotid bruits, lymphadenopathy, or thyromegaly. LUNGS: Clear to auscultation and percussion. HEART: Rate and rhythm regular without gallops, murmurs, or rubs. ABDOMEN: Soft without masses or hepatosplenomegaly. No pain, rebound, guarding, or rigidity. EXTREMITIES: Free of peripheral edema. Pulses are intact. NEUROLOGIC: Grossly normal without focal neurologic deficit or lateralizing signs. EKG reveals normal sinus rhythm, normal [place] and QRS intervals, no evidence of long QT interval, accessory pathway, Brugada's syndrome, previous infarction, or early repolarization. Diagnosis:SINUS BRADYCARDIA OTHERWISE NORMAL ECG Confirmed by Otilio Dawson ([id number]) on 06/02/2018 10:10:23 AM ? Ventricular Rate : 53 ?BPM Atrial Rate : 53 ?BPM P-R Interval : 128 ?ms QRS Duration : 84 ?ms Q-T Interval : 412 ?ms QTC Calculation(Bezet) : 386 ?ms P [place] : 29 ?degrees R [place] : 50 ?degrees T [place] : 28 ?degrees Assessment/Plan: 22-year-old female with extensive symptoms as above suspected to reflect autonomic dysfunction. We will proceed with assessment for arrhythmias and structural heart disease with a stress echocardiogram, a prolonged ambulatory event monitor. We'll assess for orthostatic tachycardia with a tilt table test. We had an extensive discussion about our current understanding and approach to patients with orthostatic intolerance and how there is no unified theory about the pathophysiology and etiology of the relatively enigmatic disorder, but that our approaches focuses on investigation of underlying hemodynamic, cardiovascular and neurologic causes. If tilt is abnormal will perform comprehensive autonomic and hemodynamic assessment. We will obtain a QSART, autonomic reflexes, hemo echo and radionuclide hemodynamic study. We reviewed the perfunctory, empiric, nonpharmacologic approaches to autonomic dysfunction symptom amelioration including 5-7 g sodium diet, 1 or 2 L of sports drinks daily, knee-high, thigh-high or waist-high custom fitted compression stockings. 4-6 inch elevation of the head of the bed, and regular exercise, which could initially consist of non-gravitational exercise, so called Marquez protocol, consisting of aqua therapy, water walking, recumbent bike, NuStep, rowing machine et cetera, 3 or 4 times a week, 30-40 minutes and progressing to conventional exercise as tolerated. She absolutely has to discontinue smoking immediately, not only for obvious negative cardiovascular and pulmonary consequences but especially due to the well known deleterious effects of nicotine on the autonomic nervous system. she completed a ZIO patch Patient had a min HR of 43 bpm, max HR of 178 bpm, and avg HR of 85 bpm. Predominant underlying rhythm was Sinus Rhythm. Possible Ectopic Atrial Rhythm was present. Isolated SVEs were rare (<1.0%), and no SVE Couplets or SVE Triplets were present. Isolated VEs were rare (<1.0%), and no VE Couplets or VE Triplets were present. ? I reviewed the entire Zio Patch event recorder report and strips in detail and below reflects my interpretation. ? Patient utilized a event recorder from June 01 until June 15 for 13 days of data. There are 26 triggered activations for sinus rhythm and PACs. There were no diary entries. Most of the symptomatic triggers showed normal sinus rhythm with normal rates although there was occasionally sinus tachycardia. There was no significant ventricular ectopy. ? ? I suggested they contact my office in a week or so after the tests to review preliminary results and recommendations with my nurse practitioner and I will provide detailed summary of their visit with my suggestions. This note was partially generated using [employer] voice recognition system, and there may be some incorrect words, spellings, and punctuation that were not noted in checking the note before saving. Gabriele Figueroa DO CC: rosemary fisher Referring Provider: THIERRY RILEY [[id number]] Allergies As of Date: 06/01/2018 Noted Allergy Reaction CECLOR (CEFACLOR) 09/15/2017 4 - Hives Date Reviewed: 06/01/2018 Reviewed by: Saima Barlow RN - Fully Assessed Primary Visit Diagnosis:Other chest pain [R07.89] Other Visit Diagnoses:Syncope, unspecified syncope type [R55] Palpitations [R00.2] Order(s):OUTSIDE VENDOR CARDIAC OUTPATIENT EXTENDED RHYTHM RECORDING (WITHOUT TELEMETRY) [[id number]] Order #: [id number]. #:[id number]: 1 STRESS ECHO TREADMILL [[id number]] Order #: [id number]: 1 FUTURE TILT TABLE EVALUATION [[id number]] Order #: [id number]: 1 Prescriptions as of 06/01/2018 Sig: PAROXETINE 20 MG TABLET Take 20 mg by mouth once boom* Problem List As Of Date: 06/01/2018 (None) Medications Discontinued During This Encounter gabapentin (NEURONTIN) 300 mg capsule 90 c* 5 12/11/2017 06/01/2018 Route: ORAL Sig: Take 1 capsule by mouth three times daily for 30 days. Disc: Discontinued by another Health Care Provider Encounter Status:Closed by CHERI FIGUEROA DO on 06/13/18 PROCEDURE Observed: 06/01/2018 Status: COMPLETED Source: [place] 12:00 AM [facility] REPOSITORY [facility] ID: [id number] Author: Cheri Figueroa DO Service: (none) Author Type: Physician Type: Procedures Filed: 07/06/2018 1:26 PM Note Text: Patient had a min HR of 43 bpm, max HR of 178 bpm, and avg HR of 85 bpm. Predominant underlying rhythm was Sinus Rhythm. Possible Ectopic Atrial Rhythm was present. Isolated SVEs were rare (<1.0%), and no SVE Couplets or SVE Triplets were present. Isolated VEs were rare (<1.0%), and no VE Couplets or VE Triplets were present. I reviewed the entire o Patch event recorder report and strips in detail and below reflects my interpretation. Patient utilized a event recorder from June 01 until June 15 for 13 days of data. There are 26 triggered activations for sinus rhythm and PACs. There were no diary entries. Most of the symptomatic triggers showed normal sinus rhythm with normal rates although there was occasionally sinus tachycardia. There was no significant ventricular ectopy. Cheri Figueroa Jr, July 05, 2018 4:10 PM PROGRESS Observed: 04/16/2018 Status: COMPLETED Source: [place] 3:57 PM [facility] REPOSITORY HNO ID: [id number] Author: Antonina Booker Service: (none) Author Type: Physician Type: Progress Notes Filed: 04/18/2018 1:48 PM Note Text: CC : Jermainetent here for a f/u of chiari malformation. Interval HPI : Ms. Robles is 22 year old female with multiple complaints: headache, light headedness, hand numbness, passing out. Patient has been having symptoms for a couple of years now. She feels that the neck pain is fairly constant. It is aggravated by turning her head. She will develop a migraine. Light headedness is brought on by bending over, and other times no aggravativng incidents. She feels that she has hand numbness as well as feet and arms. If she puts her arms up for more than a minute she will get numbness in the arms. Hands go numb after arms have been moving for a while. No vision changes. Normal exam .She saw the gas appliance servicer helper twice, both times no papilledema. She has stopped the diamox that she was given. She will get warren's on and off. She always has a lot of pressure. This is constant. She also has retrobulbar pain. + brain fog and memory difficulties. She has balance issues as well. Today she reports that she has been having heart palpitations and more numbness in her toes 1st through 3rd digits b/l. All other symptoms from above are the same. ROS: see chart Current Medications : all meds are on the chart and have been reviewed by me. No change. Allergies : allergies are on the chart and have been reviewed by me. No change. EXAM : Awake and alert ox3 MENDIETA Face symmetric Speech Clear Tongue midline No pronator drift No past pointing Tandem walking wnl Assessment : Chiari malformation 6 mm descent Plan : Per Dr. Jhony Cheatham PAJoann April 16, 2018 3:57 PM Seen with both parents Moderately symptomatic cerebellar tonsillar descent MRI findings reviewed and explained 6 mm tonsillar descent with some crowding at formen magnum No tethering or syrinx involving spinal cord AP Rec expectant observation Pt and family understand and agree Antonina Booker MD CNOV Observed: 04/16/2018 Status: COMPLETED Source: [place] 3:40 PM [facility] REPOSITORY Office Visit (NSFRVW) RADHA ROBLES ([id number]) 1995 F CHT Date Time Provider Department 04/16/18 3:40 PM ANTONINA BOOKER NSFRVW During your visit today, we recorded the following information about you: Temperature Pulse Blood pressure Weight 98.6 degrees 80/minute 120/62 62.1 kg Height 1.575 m Antonina Booker MD 04/18/2018 1:48 PM Signed CC : Elvirat here for a f/u of chiari malformation. Interval HPI : Ms. Robles is 22 year old female with multiple complaints: headache, light headedness, hand numbness, passing out. Patient has been having symptoms for a couple of years now. She feels that the neck pain is fairly constant. It is aggravated by turning her head. She will develop a migraine. Light headedness is brought on by bending over, and other times no aggravativng incidents. She feels that she has hand numbness as well as feet and arms. If she puts her arms up for more than a minute she will get numbness in the arms. Hands go numb after arms have been moving for a while. No vision changes. Normal exam .She saw the gas appliance servicer helper twice, both times no papilledema. She has stopped the diamox that she was given. She will get warren's on and off. She always has a lot of pressure. This is constant. She also has retrobulbar pain. + brain fog and memory difficulties. She has balance issues as well. Today she reports that she has been having heart palpitations and more numbness in her toes 1st through 3rd digits b/l. All other symptoms from above are the same. ROS: see chart Current Medications : all meds are on the chart and have been reviewed by me. No change. Allergies : allergies are on the chart and have been reviewed by me. No change. EXAM : Awake and alert ox3 MENDIETA Face symmetric Speech Clear Tongue midline No pronator drift No past pointing Tandem walking wnl Assessment : Chiari malformation 6 mm descent Plan : Per Dr. Jhony Cheatham PA-C April 16, 2018 3:57 PM Seen with both parents Moderately symptomatic cerebellar tonsillar descent MRI findings reviewed and explained 6 mm tonsillar descent with some crowding at formen magnum No tethering or syrinx involving spinal cord AP Rec expectant observation Pt and family understand and agree Antonina Booker MD Referring Provider: ANTONINA BOOKER [[id number]] Allergies As of Date: 04/16/2018 Noted Allergy Reaction CECLOR (CEFACLOR) 09/15/2017 4 - Hives Date Reviewed: 04/16/2018 Reviewed by: Bakari Orantes Ma - Fully Assessed Reason for Visit: Follow Up [171] Primary Visit Diagnosis: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 [[id number]] Order #: [id number] FUTURE Prescriptions as of 04/16/2018 Sig: PAROXETINE 20 MG TABLET Take 20 mg by mouth once boom* GABAPENTIN 300 MG CAPSULE Take 1 capsule by mouth three* Problem List As Of Date: 04/16/2018 (None) Disposition: Return in about 1 year (around 04/16/2019) for Follow up after imaging complete. Follow-up and Disposition History Recorded Encounter Status:Closed by ANTONINA BOOKER MD on 04/18/18 DISCHARGE INSTRUCTION Observed: 03/19/2018 Status: F Source: [place] 2:25 PM [facility] REPOSITORY [facility] Medical Records Department [address] [place] [address] Instructions for Home/Discharge Instructions 03/19/18 1423 MR#: [id number] Acct: [id number] Name: RADHA ROBLES Rep #: [id number] : 1995 22 From: Oly Jennings MD PCP: Sd Fernandes Status: REG [facility] [place] Discharge Diet: No Restrictions Discharge Activity: Return to Normal Activity, May not drive while taking narcotic pain medications., May Shower, - - No tub bath for 2-4 weeks May resume sexual activity in: 4-6 weeks Lifting Restrictions: 10-20 lb Call your doctor if your incision/area has: Continuous Slow Oozing, Sudden Increased Bleeding, Increased Pain/ Swelling, Increased Redness Call your doctor if you observe: Fever of 101 or Higher, Inability to urinate, Inability to have a bowel movement, Using more than one pad per hour, Shortness of breath, Chest pain, Calf discomfort, Uncontrolled pain Suture Line Care: Avoid Pulling/Pushing Remove Dressing in (days):: 1 Cleanse incision/area with: Soap AND Water Allergies/Adverse Reactions: Allergies cefaclor [From Ceclor] Allergy (Verified 03/16/18 13:14) Hives Medications to take at Discharge Aspirin/Acetaminophen/Caffeine [Excedrin Extra Strength Caplet] 1 - 2 tab PO PRN PRN 03/16/18 Gabapentin [Neurontin] 300 mg PO TID PRN PRN 03/16/18 Paroxetine HCl [Paxil] 30 mg PO DAILY 03/16/18 Docusate Sodium [Colace] 100 mg PO BID PRN PRN #60 cap 03/19/18 Oxycodone [Oxyir] 5 mg PO Q4H PRN PRN 3 Days #18 tablet 03/19/18 The following prescriptions were given: Oxycodone [Oxyir] 5 mg PO Q4H PRN PRN 3 Days #18 tablet PRN Reason: Severe Pain (6-06/03) Docusate Sodium [Colace] 100 mg PO BID PRN PRN #60 cap PRN Reason: Constipation Primary Care Physician: Sd Fernandes [Primary Care Provider] - Test Results: Test results from this visit will be discussed in further detail at your follow-up appointment, if applicable. Please Follow Up With: Oly Tanner MD When: 2-4 weeks 03/19/18 2699 <Electronically signed by Oly Tanner MD> Date Oly Tanner MD CC: Sd Fernandes OPERATIVE REPORT Observed: 03/19/2018 Status: F Source: [place] 2:23 PM [facility] REPOSITORY [facility] Medical Records Department [address] [place] [address] Operative Report 03/19/18 1413 MR#: [id number] Acct: [id number] Name: RADHA ROBLES Rep #: [id number] : 1995 22 From: Oly Jennings MD PCP: Sd Fernandes Status: REG [facility] [place] Y Location: [place] [address] Problem List (1) Chronic pelvic pain in female Status: Acute (2) SCAR II (cervical intraepithelial neoplasia II) Status: Acute Comment: SCAR 2 at 12 o'clock on bx Report of Operation Date of Procedure: 03/19/18 Pre-Operative Diagnosis: CIN2, chronic pelvic pain Surgery/Procedure Performed:: CIN2, chronic pelvic pain Description of Surgical Findings:: Brown endometriotic appearing lesion at left uterosacral ligament Normal tubes and ovaries and uterus editor magazine: Autumn Virgen Type of Anesthesia:: General Anesthesiologist: Devonte Huffman Specimen's removed: 1. left uterosacral peritoneum. 2. ectocervix. 3. endocervical curettings Drains: lara - 100 ml Estimated Blood Loss (mL): 50 Description of Procedure: The patient was brought to the operating room and signed and was performed. She is placed in a dorsal supine position and induced under general anesthesia and intubated. She was repositioned into dorsal lithotomy and her arms were tucked at her sides. An examination under anesthesia was performed. The perineum and abdomen were prepped and draped in sterile fashion. The patient was placed into high lithotomy and a Lara catheter placed into the bladder. He weighted speculum placed to the vagina cervix visualized and sounded the uterus. A HUMI uterine manipulator was placed and secured. Speculum was removed from the vagina. Patient was then placed into low lithotomy and attention turned to the abdomen.. An inferior umbilical incision was made using a scalpel and Veress needle placed with successful hanging drop test and no aspirate. The abdomen was insufflated to 15 mmHg. Veress needle was removed and a 5 mm port was placed under laparoscopic guidance confirming entry into the abdominal cavity. A second suprapubic incision was made and 5 mm port was placed at this site. The abdomen and pelvis were inspected and notable for a left uterosacral lesion but otherwise normal-appearing. I placed a third incision and the left lower quadrant under transillumination and a 5 mm port was subsequently placed. The patient was placed into Trendelenburg and the left uterosacral peritoneum was sharply and bluntly dissected from the underlying ligamentous tissue. Bleeding was controlled using the monopolar [place]. The pelvis was suction irrigated and Jessica was placed at the site for additional hemostasis. The patient was flattened, abdomen desufflated and the ports removed from the abdomen. Incisional sites were closed using 4-0 Monocryl. A total of 10 cc of 1% lidocaine were placed at the site for additional analgesia. Attention was then turned to the perineum. The patient was then placed into high lithotomy. An insulated speculum was placed into the vagina and Monsel solution applied to the cervix with Lugol's resistance going clockwise between 5 and 12:00. A 2 cm loop electrode was used to perform a LEEP. The ectocervix is open at 5:00. Endocervical curettings were obtained. The ball electrode was utilized to fulgurate the excisional cervical bed and Monsel's was applied followed by 3 minutes compression however there was persistent bleeding. 0 Vicryl suture was used to Place Sturmdorf sutures with excellent hemostasis attained. The speculum was removed as well as the Lara catheter. The patient was placed into dorsal supine position, awakened, extubated and transferred to the recovery room without complication. Sponge and needle counts were correct 2. The patient tolerated the procedure well 03/19/18 1423 <Electronically signed by Oly Tanner MD> Date Oly Tanner MD CC: Sd Fernandes; Oly Tanner MD Signed TISSUE BIOPSY Observed: 03/19/2018 Status: F Source: [place] 12:45 PM [facility] REPOSITORY Patient: RADHA ROBLES : 1995 () Acct Num: [id number] Phys: Ciro KELLEY,Summer Unit Num: [id number] Loc: [facility] [place] Specimen: [id number] Received: 03/19/18 - 1423 Spec Type: Tissue Bx TISSUES TISSUES: A. TISSUE SURGICALLY REMOVED B. Uterine cervix, NOS C. Uterine cervix, NOS COMMENT B. Immunohistochemistry ([id number]) for surrogate HPV marker (p16) supports the above diagnosis. Please make reference to previous specimen ([id number]) cervix, 12 o clock, biopsy with diagnosis of mild and focal moderate squamous dysplasia with HPV changes. GROSS DESCRIPTION A - Received in fixative is one container labeled with the patient's name and designated left uterosacral biopsy. The specimen consists of a piece of congested soft tissue measuring 0.8 x 0.5 x 0.1 cm. The specimen is totally submitted in one cassette. B - Received in fixative is one container labeled with the patient's name and designated ectocervix, open at 5 o'clock. The specimen consists of a previously opened junior, indurated piece of tissue consistent with LEEP conization measuring 3 x 1.5 x 0.5 cm. The specimen is open identified as 5 o clock position. No mucosal lesion is identified. The nonmucosal surface is inked black. The specimen is serially sectioned and submitted entirely in four cassettes as follows: 1 12 to 3 o clock, 2 3 to 6 o clock, 3 6 to 9 o clock, 4 9 to 12 o clock. C - Received in fixative is one container labeled with the patient's name and designated endocervix. The specimen consists of multiple fragments of junior, hemorrhagic soft tissue that in aggregate measure 0.5 x 0.5 x 0.1 cm. Please note there are multiple small fragments of gauze also in the specimen. The specimen is totally submitted in one cassette. / LA:laura 03/20/18 TC:5 CPT: 18520 x2, 34437 HEADER OPERATION: Diagnostic laparoscopy, LEEP PRE-OP DIAGNOSIS: Chronic pelvic pain, high grade cervical dysplasia TISSUE SUBMITTED: A. Left uterosacral biopsy, B. Ectocervix, open at 5 o clock, C. Endocervix MICROSCOPIC DESCRIPTION Slides are reviewed. MICROSCOPIC DIAGNOSIS A. Left uterosacral, biopsy: Endometriosis. Focal chronic inflammation. B. Ectocervix, LEEP conization: Mild and focal moderate squamous dysplasia with HPV changes (HGSIL and SCAR I-II). Focal chronic inflammation and squamous metaplasia. Resection margins are free of dysplastic changes. C. Endocervix, curettings: Fragments of benign endocervical epithelium, blood and mucous negative for dysplasia. SJ:laura 03/23/18 Signed Dejan Glenn 03/24/18 <signature on file> Performed By: #### PTISS #### [facility] [address] [place], [place], [address] ,URINE Collected: 03/19/2018 Status: F Source: [place] 11:31 AM [facility] REPOSITORY TYPE CODE TESTS RESULT OUT OF REFERENCE UNITS RANGE LAB L400.8000 Negative Normal HCGUQUAL Negative Result Comment: Very dilute urine specimens, as indicated by a low specific gravity, may not contain insurance service representative levels of hCG. If is still suspected, a first morning urine specimen should be collected 48 hours later and tested. Performed By: #### [id number] #### [facility] [address] [place], [address] IMMUNOHISTOCHEMISTRY Observed: 03/19/2018 Status: F Source: [place] 12:00 AM [facility] REPOSITORY Patient: RADHA ROBLES : 1995 () Acct Num: [id number] Phys: Ciro KELLEY,Summer Unit Num: [id number] Loc: [facility] [place] Specimen: [id number] Received: 03/23/18 - 1300 Spec Type: IMMUNO TISSUES TISSUES: B. Uterine cervix, NOS - 1 SPECIMEN INFORMATION: Tissue Source: B Ectocervix, open at 5 o clock Clinical Info: Chronic pelvic pain, high-grade cervical dysplasia Specimen Number: [id number] CPT code: 28543, 80418 METHODOLOGY: Deparaffinized sections of prefer/formalin-fixed tissue or PAP/DQ stained slides are incubated with monoclonal/polyclonal antibodies/oligonucleotide probes. Localization is made via biotin free immunoperoxidase method. Appropriate controls are performed and reacted as expected. Results on target cell population are indicated in the following table: RESULTS: ANTIBODY / CLONE RESULT Block B1 P16 (E6H4) positive, block staining Ki-67 (30-9) positive, moderate These tests were developed and their performance characteristics determined by [facility]. They may not have been cleared or approved by the U.S. Food and Drug Administration. The FDA has determined that such clearance or approval is not necessary. INTERPRETATION: B. Ectocervix, open at 5 o clock: Mild and moderate squamous dysplasia. SJ:laura 03/24/18 PHYSICIAN AND INSTITUTION [address] [address] Signed Dejan Elizabeth 03/24/18 <signature on file> Performed By: #### PIMM #### [facility] [address] [place] [address]. [place], [address] 12 LEAD ELECTROCARDIOGRAM Observed: 03/17/2018 Status: F Source: [place] 1:29 PM [facility] REPOSITORY [facility] Cardiovascular Services [address] [place] [id number] EKG - [facility] [place] 03/16/18 1254 MR#: [id number] Acct: [id number] Name: RADHA ROBLES Rep #: [id number] : 1995 22 From: Sd Canales MD Attending Dr: Oly Tanner MD Status: PRE [facility] [place] Ordering Dr: Devonte Huffman MD Date: 03/16/18 Location: [facility] [place] Sex: F C Admitted: Test Reason : Blood Pressure : / mmHG Vent. Rate : 063 BPM Atrial Rate : 063 BPM P-R Int : 118 ms QRS Dur : 084 ms QT Int : 398 ms P-R-T Axes : 035 071 052 degrees QTc Int : 407 ms Normal sinus rhythm Normal ECG Confirmed by ALLY KELLEY, SD ([id number]), editorial director MADDISON GRANADO ([id number]) on 03/17/2018 1:28:48 PM Referred By: Oly Tanner Confirmed By:SD CANALES MD 03/17/18 1328 Date Sd Canales MD CC: Devonte Huffman MD; Sd Fernandes; Oly Tanner MD Date Dictated: 03/16/181253 Date Transcribed: 03/16/181253 Borough Coordinator: Signed CBC-COMPLETE BLOOD CNT Collected: 03/16/2018 Status: F Source: [place] NO DIFF 2:06 PM [facility] REPOSITORY TYPE CODE TESTS RESULT OUT OF RANGE REFERENCE UNITS LAB L100.1000 4.4-11.0 K/mm3 Normal WBC 6.8 LAB L100.1200 4.2-5.4 M/mm3 Normal RBC 4.27 LAB L100.1300 12.0-15.0 g/dl Normal HGB 12.4 LAB L100.1400 37-47 % Normal HCT 39.5 LAB L100.1500 81-99 fL Normal MCV 92.5 LAB L100.1600 27.0-32.0 pg Normal MCH 29.0 LAB L100.1700 32-36 g/gl Low MCHC 31.4 LAB L100.1810 11.6-14.6 % Normal RDW CV 13.0 LAB L100.1820 35.1-43.9 fl High RDW SD 44.2 LAB L100.1900 150-450 K/mm3 Normal PLT 280 LAB L100.2000 6.2-12.0 fl Normal MPV 9.7 Performed By: #### L100.0500 #### [facility] [address] [place], [address] BASIC METABOLIC Collected: 03/16/2018 Status: F Source: [place] PROFILE (BMP) 2:06 PM [facility] REPOSITORY TYPE CODE TESTS RESULT OUT OF RANGE REFERENCE UNITS LAB L501.0100 74-106 mg/dL Low GLU 73 Result Comment: Please note revised GLUCOSE reference range effective 2017. LAB L501.1000 7-18 mg/dL Normal BUN 13 LAB L501.1100 0.55-1.02 mg/dL Normal CREAT,SERUM 0.77 Result Comment: The validity of the calculated GFR AND GFRAA in patients over 70 years has not been determined. Clinical correlation is essential. LAB L501.1110 >60 mL/min Normal EST GFR 100 Result Comment: Non- GFR Calc LAB L501.1115 >60 mL/min Normal EST GFR - AA 120 Result Comment: GFR Calc LAB L501.1255 ml/min Normal Estimated CRCL 90.64 LAB L501.1300 10-20 RATIO Normal BUN/CRE 16.9 LAB L501.2200 8.5-10 mg/dL Normal .1 CA 9.1 LAB L501.5300 136-14 mmol/L Normal 5 NA 142 LAB L501.5600 3.5-5. mmol/L Normal 1 K 4.1 LAB L501.5900 98-107 mmol/L Normal CL 104 LAB L501.6100 21.0-3 mmol/L High 2.0 CO2 33.0 LAB L501.6200 5-15 Normal GAP 5 Performed By: #### L500.2500, L500.3400 #### [facility] [address] [facility] [place], [place], [id number] LIVER PROFILE Collected: 03/16/2018 Status: F Source: [place] 2:06 PM [facility] REPOSITORY TYPE CODE TESTS RESULT OUT OF RANGE REFERENCE UNITS LAB L501.1500 6.4-8.2 g/dL Normal T PROT 7.5 LAB L501.1800 3.2-5.0 g/dL Normal ALB 4.0 LAB L501.1950 2.2-4.2 g/dL Normal GLOB 3.5 LAB L501.4100 15-37 U/L Low AST 11 LAB L501.4305 45-117 U/L Normal ALK P 55 LAB L501.4405 13-56 U/L Normal ALT 17 LAB L501.4600 0.20-1.00 mg/dL Normal T BILI 0.60 LAB L501.4700 0.00-0.30 mg/dL Normal D BILI 0.17 Performed By: #### L500.2500, L500.3400 #### [facility] [address] [facility]. [place], [place], [phone] PROTHROMBIN TIME W/INR Collected: 03/16/2018 Status: F Source: [place] 2:06 PM [facility] REPOSITORY TYPE CODE TESTS RESULT OUT OF RANGE REFERENCE UNITS LAB L300.4150 11.7-14.9 SECONDS Normal PROTIME 13.5 LAB L300.4200 Normal INR 1.0 Performed By: #### L300.3900, L300.4310 #### [facility] [address] [place], [address] PARTIAL THROMBOPLAST Collected: 03/16/2018 Status: F Source: [place] TIME 2:06 PM [facility] REPOSITORY TYPE CODE TESTS RESULT OUT OF RANGE REFERENCE UNITS LAB L300.4310 24.1-36.2 Seconds Normal PTT 28.6 Performed By: #### L300.3900, L300.4310 #### [facility] [address] [place], [address] TYPE AND SCREEN Collected: 03/16/2018 Status: F Source: [place] 2:06 PM [facility] REPOSITORY Order Comment: Surgery Date: 03/19/18 Date of Last Transfusion (if within last 3 months) NA Hx of Preganancy in last 3 Months No Ever experience any problems with transfusion(s)? N Hx of Transfusion in last 3 Months N Reason for Type AND Screen/Red Cells: SURGERY Time: 0000 SURGICAL PROCEDURE: LAP LEEP TYPE CODE TESTS RESULT OUT OF RANGE REFERENCE UNITS LAB B10.0800 O Normal BLOOD TYPE GEL NEGATIVE LAB B100.4000 Normal Antibody NEGATIVE Screen Performed By: #### B101.7475 #### [facility] [address] [place], [place], [phone] CBC Collected: 02/13/2018 Status: F Source: [place] 4:22 PM [facility] REPOSITORY TYPE CODE TESTS RESULT OUT OF REFERENCE UNITS RANGE LAB WBC 3.70-11.00 k/uL WBC 6.91 LAB RBC 3.90-5.20 m/uL RBC 4.39 LAB HGB 11.5-15.5 g/dL Hemoglobin 12.9 LAB HCT 36.0-46.0 % Hematocrit 39.8 LAB MCV 80.0-100.0 fL MCV 90.7 LAB MCH 26.0-34.0 pG MCH 29.4 LAB MCHC 30.5-36.0 g/dL MCHC 32.4 LAB RDWCV 11.5-15.0 % RDW-CV 12.7 LAB PLTCT 150-400 k/uL Platelet Count 265 LAB MPV 9.0-12.7 fL MPV 10.4 LAB ABSNUC <0.01 k/uL Absolute nRBC <0.01 Performed By: #### CBC, CMP #### [facility] [address] [place], [place] [address] COMP METABOLIC PANEL Collected: 02/13/2018 Status: F Source: [place] 4:22 PM [facility] REPOSITORY TYPE CODE TESTS RESULT OUT OF REFERENCE UNITS RANGE LAB TP 6.3-8.0 g/dL Protein, Total 7.2 LAB ALB 3.9-4.9 g/dL Albumin 4.7 LAB CA 8.5-10.2 mg/dL Calcium, Total 9.6 LAB TBIL 0.2-1.3 mg/dL Bilirubin, Total 0.5 LAB ALKP 32-117 U/L Alkaline Phosphatase 48 LAB AST 13-35 U/L AST 17 LAB GLU 74-99 mg/dL Glucose 98 Result Comment: The [place] Diabetes Association (ADA) provides guidance for cutoff values for fasting glucose and random glucose. The ADA defines fasting as no caloric intake for at least 8 hours. Fas ting plasma glucose results between 100 to 125 mg/dL indicate increased risk for diabetes (prediabetes). Fasting plasma glucose results greater than or equal to 126 mg/dL meet the criteria for diagnosis of diabetes. In the absence of unequivocal hyperglycemia, results should be confirmed by repeat testing. In a patient with classic symptoms of hyperglycemia or hyperglycemic crisis, random plasma glucose results greater than or equal to 200 mg/dL meet the criteria for diagnosis of diabetes. Reference: Standards of Medical Care in Diabetes 2016, [place] Diabetes Association. Diabetes Care. 2016.39(Suppl 1). LAB BUN 7-21 mg/dL BUN 8 LAB CRET 0.58-0.96 mg/dL Creatinine 0.68 LAB NA 136-144 mmol/L Sodium 138 LAB K 3.7-5.1 mmol/L Potassium 4.3 LAB CL 97-105 mmol/L Chloride 103 LAB CO2 22-30 mmol/L CO2 24 LAB AGAP 9-18 mmol/L Anion Gap 11 LAB ALT 7-38 U/L ALT 8 LAB GFRAA eGFR- Amer. >60 LAB GFRNAA . eGFR-All Other Races >60 Result Comment: eGFR (Estimated GFR) Units of measure: mL/min/1.73 meters squared eGFR is derived from the reexpressed MDRD Study equation using the following parameters: serum creatinine, age, gender and race. The creatinine assay has been calibrated to be traceable to IDMS. An eGFR <60 mL/min/1.73m2 for >3 months is consistent with chronic kidney disease. Refer to KDOQI guidelines for clinical interpretation. In patients with unstable renal function, e.g. those with acute kidney injury, the eGFR may not accurately reflect actual GFR. Performed By: #### CBC, CMP #### [facility] [address] [place], [place] [address] ALLIED HEALTH Observed: 02/13/2018 Status: COMPLETED Source: [place] 4:09 PM [facility] REPOSITORY HNO ID: [id number] Author: Cal (Rt) Liyah Cadena Service: (none) Author Type: Callisthenics Instructor Type: Allied Health Filed: 02/13/2018 4:09 PM Note Text: Radiology Service Progress Note PATIENT NAME: Radha Robles DATE OF SERVICE: February 13, 2018 TIME: 4:09 PM PATIENT IDENTITY VERIFICATION COMPLETED USING TWO (2) METHODS: Patient confirmed name verbally and ID band matches.. PATIENT GENDER DATA: Female. status: : No status: NO. PATIENT RELEVANT IMPLANT DATA REVIEWED: Not Applicable RADIOLOGY DEPARTMENT: General X-ray: Exam(s) Completed: Spine X-Ray(s): Cervical AP / LAT / FLEX-EXT PERIPHERAL IV DATA: Not applicable SIGNED BY: RT Moises February 13, 2018 4:09 PM XR CERVICAL 4V Observed: 02/13/2018 Status: F Source: [place] AP/LAT/FLX/EXT 4:09 PM [facility] REPOSITORY * * *Final Report* * * DATE OF EXAM: Feb 13 2018 4:09PM [facility] [id number] - XR CERVICAL 4V AP/LAT/FLX/EXT / PROCEDURE REASON: Compression of brain * * * * Physician Interpretation * * * * Clinical: Compression the brain Technique: AP, lateral, flexion-extension and odontoid views of the Cervical spine RESULT: The vertebral body alignment appears satisfactory. There is no significant disc space narrowing. No abnormal subluxation is seen on flexion or extension. The odontoid is intact. IMPRESSION: Normal cervical spine series. Borough Coordinator: [place] Transcribe Date/Time: Feb 13 2018 4:31P Dictated by : DEE GANNON MD This examination was interpreted and the report reviewed and electronically signed by: DEE GANNON MD on Feb 13 2018 4:32PM EST [id number] MRI LUMBAR SPINE WO Observed: 02/13/2018 Status: F Source: [place] IVCON 2:45 PM [facility] REPOSITORY * * *Final Report* * * DATE OF EXAM: Feb 13 2018 2:45PM [facility] 0303 - MRI LUMBAR SPINE WO IVCON / PROCEDURE REASON: Compression of brain * * * * Physician Interpretation * * * * EXAMINATION: MRI CERVICAL SPINE WO IVCON, MRI THORACIC SPINE WO IVCON, MRI LUMBAR SPINE WO IVCON CLINICAL HISTORY: Compression of brain Chiari I malformation. TECHNIQUE: Routine total spine MR protocol without gadolinium. MQ: [id number] COMPARISON: MR brain 12/04/2017.. RESULT: CERVICAL: Counting reference: Craniocervical junction. Alignment: Reversal of the normal cervical lordosis, likely degenerative and positioning. Alignment otherwise anatomic. Craniocervical junction: Again seen is descent of the cerebellar tonsils below the foramen magnum approximately 4 mm on the right and 6 mm on left. There is no significant peg shape. Craniocervical junction is normal. Cord: The cervical spinal cord is within normal limits of signal intensity and morphology. Sagittal images show slight decrease in flow through the foramen magnum than expected. Bone marrow signal/fracture: No evidence of pathologic marrow infiltration. No evidence of prior fracture. Cervical soft tissues: The paraspinal soft tissues are within normal limits. C2-C3: Canal and foramina are patent. C3-C4: Canal and foramina are patent. C4-C5: Canal and foramina are patent. C5-C6: Canal and foramina are patent. Disc degeneration is noted. C6-C7: Canal and foramina are patent. Disc degeneration is noted. C7-T1: Canal and foramina are patent. THORACIC: Counting Reference: Lumbosacral junction.. For the purposes of this report, the most caudal normal disc space in the lumbar region will be labeled as L5-S1. The iliac crest will serve as a secondary landmark to identify the L4-5 level. Alignment: Alignment is anatomic. Cord: The thoracic spinal cord is within normal limits of signal intensity and morphology. Bone marrow signal/fracture: No evidence of pathologic marrow infiltration. No evidence of prior fracture. Thoracic soft tissues: The paraspinal soft tissues are within normal limits. Trace bilateral pleural effusions. Canal and foramina: The thoracic canal and foramina are patent within the constraints of the study. LUMBAR: Counting Reference: Lumbosacral junction.. For the purposes of this report, the most caudal normal disc space in the lumbar region will be labeled as L5-S1. The iliac crest will serve as a secondary landmark to identify the L4-5 level. Alignment: Alignment is anatomic. Bone marrow signal/fracture: No evidence of pathologic marrow infiltration. No evidence of prior fracture. Conus: The conus is within normal limits of signal intensity and morphology. Paraspinal soft tissues: Paraspinal soft tissues are within normal limits. T12-L1: Canal and foramina are patent. L1-L2: Canal and foramina are patent. L2-L3: Canal and foramina are patent L3-L4: Canal and foramina are patent L4-L5: Canal and foramina are patent. Facet arthropathy is noted. L5-S1: There is disc degeneration with diffuse disc bulge and facet arthropathy causing mild bilateral foraminal stenosis without significant canal narrowing. Sacrum and iliac wings: The visualized sacrum and iliac wings are within normal limits. The presacral soft tissues are normal in appearance. IMPRESSION: Descent of the cerebellar tonsils, which is borderline between mild tonsillar ectopia and Chiari I malformation. No significant peg shape of the cerebellar tonsils. Mild decreased biphasic flow through the foramen magnum. Mild spondylosis in the mid cervical and lower lumbar spine without significant canal or foraminal narrowing. Unremarkable thoracic spine MRI. No cord compression or abnormal cord signal. No evidence for syrinx. Trace bilateral pleural effusions. Borough Coordinator: [place] Transcribe Date/Time: Feb 13 2018 2:46P Dictated by : ADAN NICE MD This examination was interpreted and the report reviewed and electronically signed by: ADAN NICE MD on Feb 13 2018 2:56PM EST [id number] MRI THORACIC SPINE WO Observed: 02/13/2018 Status: F Source: [place] IVCON 2:45 PM [facility] REPOSITORY * * *Final Report* * * DATE OF EXAM: Feb 13 2018 2:45PM [facility] - MRI THORACIC SPINE WO IVCON / PROCEDURE REASON: Compression of brain * * * * Physician Interpretation * * * * EXAMINATION: MRI CERVICAL SPINE WO IVCON, MRI THORACIC SPINE WO IVCON, MRI LUMBAR SPINE WO IVCON CLINICAL HISTORY: Compression of brain Chiari I malformation. TECHNIQUE: Routine total spine MR protocol without gadolinium. MQ: [id number] COMPARISON: MR brain 12/04/2017.. RESULT: CERVICAL: Counting reference: Craniocervical junction. Alignment: Reversal of the normal cervical lordosis, likely degenerative and positioning. Alignment otherwise anatomic. Craniocervical junction: Again seen is descent of the cerebellar tonsils below the foramen magnum approximately 4 mm on the right and 6 mm on left. There is no significant peg shape. Craniocervical junction is normal. Cord: The cervical spinal cord is within normal limits of signal intensity and morphology. Sagittal images show slight decrease in flow through the foramen magnum than expected. Bone marrow signal/fracture: No evidence of pathologic marrow infiltration. No evidence of prior fracture. Cervical soft tissues: The paraspinal soft tissues are within normal limits. C2-C3: Canal and foramina are patent. C3-C4: Canal and foramina are patent. C4-C5: Canal and foramina are patent. C5-C6: Canal and foramina are patent. Disc degeneration is noted. C6-C7: Canal and foramina are patent. Disc degeneration is noted. C7-T1: Canal and foramina are patent. THORACIC: Counting Reference: Lumbosacral junction.. For the purposes of this report, the most caudal normal disc space in the lumbar region will be labeled as L5-S1. The iliac crest will serve as a secondary landmark to identify the L4-5 level. Alignment: Alignment is anatomic. Cord: The thoracic spinal cord is within normal limits of signal intensity and morphology. Bone marrow signal/fracture: No evidence of pathologic marrow infiltration. No evidence of prior fracture. Thoracic soft tissues: The paraspinal soft tissues are within normal limits. Trace bilateral pleural effusions. Canal and foramina: The thoracic canal and foramina are patent within the constraints of the study. LUMBAR: Counting Reference: Lumbosacral junction.. For the purposes of this report, the most caudal normal disc space in the lumbar region will be labeled as L5-S1. The iliac crest will serve as a secondary landmark to identify the L4-5 level. Alignment: Alignment is anatomic. Bone marrow signal/fracture: No evidence of pathologic marrow infiltration. No evidence of prior fracture. Conus: The conus is within normal limits of signal intensity and morphology. Paraspinal soft tissues: Paraspinal soft tissues are within normal limits. T12-L1: Canal and foramina are patent. L1-L2: Canal and foramina are patent. L2-L3: Canal and foramina are patent L3-L4: Canal and foramina are patent L4-L5: Canal and foramina are patent. Facet arthropathy is noted. L5-S1: There is disc degeneration with diffuse disc bulge and facet arthropathy causing mild bilateral foraminal stenosis without significant canal narrowing. Sacrum and iliac wings: The visualized sacrum and iliac wings are within normal limits. The presacral soft tissues are normal in appearance. IMPRESSION: Descent of the cerebellar tonsils, which is borderline between mild tonsillar ectopia and Chiari I malformation. No significant peg shape of the cerebellar tonsils. Mild decreased biphasic flow through the foramen magnum. Mild spondylosis in the mid cervical and lower lumbar spine without significant canal or foraminal narrowing. Unremarkable thoracic spine MRI. No cord compression or abnormal cord signal. No evidence for syrinx. Trace bilateral pleural effusions. Borough Coordinator: [place] Transcribe Date/Time: Feb 13 2018 2:46P Dictated by : ADAN NICE MD This examination was interpreted and the report reviewed and electronically signed by: ADAN NICE MD on Feb 13 2018 2:56PM EST [id number] MRI CERVICAL SPINE WO Observed: 02/13/2018 Status: F Source: [place] IVCON 2:45 PM [facility] REPOSITORY * * *Final Report* * * DATE OF EXAM: Feb 13 2018 2:45PM [facility] 0297 - MRI CERVICAL SPINE WO IVCON / PROCEDURE REASON: Compression of brain * * * * Physician Interpretation * * * * EXAMINATION: MRI CERVICAL SPINE WO IVCON, MRI THORACIC SPINE WO IVCON, MRI LUMBAR SPINE WO IVCON CLINICAL HISTORY: Compression of brain Chiari I malformation. TECHNIQUE: Routine total spine MR protocol without gadolinium. MQ: [id number]_2 COMPARISON: MR brain 12/04/2017.. RESULT: CERVICAL: Counting reference: Craniocervical junction. Alignment: Reversal of the normal cervical lordosis, likely degenerative and positioning. Alignment otherwise anatomic. Craniocervical junction: Again seen is descent of the cerebellar tonsils below the foramen magnum approximately 4 mm on the right and 6 mm on left. There is no significant peg shape. Craniocervical junction is normal. Cord: The cervical spinal cord is within normal limits of signal intensity and morphology. Sagittal images show slight decrease in flow through the foramen magnum than expected. Bone marrow signal/fracture: No evidence of pathologic marrow infiltration. No evidence of prior fracture. Cervical soft tissues: The paraspinal soft tissues are within normal limits. C2-C3: Canal and foramina are patent. C3-C4: Canal and foramina are patent. C4-C5: Canal and foramina are patent. C5-C6: Canal and foramina are patent. Disc degeneration is noted. C6-C7: Canal and foramina are patent. Disc degeneration is noted. C7-T1: Canal and foramina are patent. THORACIC: Counting Reference: Lumbosacral junction.. For the purposes of this report, the most caudal normal disc space in the lumbar region will be labeled as L5-S1. The iliac crest will serve as a secondary landmark to identify the L4-5 level. Alignment: Alignment is anatomic. Cord: The thoracic spinal cord is within normal limits of signal intensity and morphology. Bone marrow signal/fracture: No evidence of pathologic marrow infiltration. No evidence of prior fracture. Thoracic soft tissues: The paraspinal soft tissues are within normal limits. Trace bilateral pleural effusions. Canal and foramina: The thoracic canal and foramina are patent within the constraints of the study. LUMBAR: Counting Reference: Lumbosacral junction.. For the purposes of this report, the most caudal normal disc space in the lumbar region will be labeled as L5-S1. The iliac crest will serve as a secondary landmark to identify the L4-5 level. Alignment: Alignment is anatomic. Bone marrow signal/fracture: No evidence of pathologic marrow infiltration. No evidence of prior fracture. Conus: The conus is within normal limits of signal intensity and morphology. Paraspinal soft tissues: Paraspinal soft tissues are within normal limits. T12-L1: Canal and foramina are patent. L1-L2: Canal and foramina are patent. L2-L3: Canal and foramina are patent L3-L4: Canal and foramina are patent L4-L5: Canal and foramina are patent. Facet arthropathy is noted. L5-S1: There is disc degeneration with diffuse disc bulge and facet arthropathy causing mild bilateral foraminal stenosis without significant canal narrowing. Sacrum and iliac wings: The visualized sacrum and iliac wings are within normal limits. The presacral soft tissues are normal in appearance. IMPRESSION: Descent of the cerebellar tonsils, which is borderline between mild tonsillar ectopia and Chiari I malformation. No significant peg shape of the cerebellar tonsils. Mild decreased biphasic flow through the foramen magnum. Mild spondylosis in the mid cervical and lower lumbar spine without significant canal or foraminal narrowing. Unremarkable thoracic spine MRI. No cord compression or abnormal cord signal. No evidence for syrinx. Trace bilateral pleural effusions. Borough Coordinator: [facility] Transcribe Date/Time: Feb 13 2018 2:46P Dictated by : ADAN NICE MD This examination was interpreted and the report reviewed and electronically signed by: ADAN NICE MD on Feb 13 2018 2:56PM EST [id number] ENDOCER CURETT/BIOPSY Observed: 02/10/2018 Status: F Source: [place] 4:50 PM [facility] REPOSITORY Patient: RADHA ROBLES : 1995 (/) Acct Num: [id number] Phys: Ciro KELLEY,Summer Unit Num: [id number] Loc: LABSPEC Specimen: [id number] Received: 02/10/181721 Spec Type: ECC TISSUES TISSUES: A. Endocervical B. Uterine cervix, NOS C. Uterine cervix, NOS D. Uterine cervix, NOS COMMENT B AND C. Immunohistochemistry ([id number]) for surrogate HPV marker (p16) supports the above diagnosis. D. Transitional zone mucosa is not present in the submitted specimen. GROSS DESCRIPTION A - Received in fixative is one container labeled with the patient's name and designated ECC. The specimen consists of multiple irregular fragments of junior mucoid tissue that in aggregate measure 2 x 1 x 0.1 cm. The specimen is totally submitted in one cassette. B - Received in fixative is one container labeled with the patient's name and designated cervical biopsy 12 o'clock. The specimen consists of two irregular fragments of light junior soft tissue that in aggregate measure 0.8 x 0.3 x 0.1 cm. The specimen is totally submitted in one cassette. C - Received in fixative is one container labeled with the patient's name and designated cervical biopsy 6 o'clock. The specimen consists of multiple irregular fragments of junior mucoid tissue that in aggregate measure 0.3 x 0.3 x 0.1 cm. The specimen is totally submitted in one cassette. D - Received in fixative is one container labeled with the patient's name and designated cervical biopsy 8 o'clock. The specimen consists of one irregular fragment of light junior soft tissue that measures 0.3 x 0.3 x 0.1 cm. The specimen is totally submitted in one cassette. / LA:laura 02/11/18 TC:5 CPT: 80135 x4 HEADER OPERATION: Colposcopy PRE-OP DIAGNOSIS: HGSIL (R87.613) TISSUE SUBMITTED: A ECC, B Cervical biopsy 12 o clock, C - Cervical biopsy 6 o clock, D - Cervical biopsy 8 o clock MICROSCOPIC DESCRIPTION Slides are reviewed. MICROSCOPIC DIAGNOSIS A. ECC: Scant fragments of benign endometrial tissue. B. 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 See comment. C. Cervix, 6 o clock, biopsy: A minute fragment of squamous epithelium with focal changes consistent with HPV cytopathic effects. See comment. D. Cervix, 8 o clock, biopsy Fragment of benign endocervical mucosa, negative for dysplasia. See comment. Peter 02/12/18 Signed Dejan Elizabeth 02/12/18 <signature on file> Performed By: #### [facility] #### [facility] [address] [place], [place] [address], [place], [address] IMMUNOHISTOCHEMISTRY Observed: 02/10/2018 Status: F Source: [place] 12:00 AM [facility] REPOSITORY Patient: RADHA ROBLES : 1995 () Acct Num: [id number] Phys: Ciro KELLEY,Summer Unit Num: [id number] Loc: LABSPEC Specimen: [id number] Received: 02/12/18 - [facility] Spec Type: IMMUNO TISSUES TISSUES: B. Uterine cervix, NOS - 12 O'CLOCK C. Uterine cervix, NOS - 6 O'CLOCK SPECIMEN INFORMATION: Tissue Source: B Cervical biopsy 12 o clock, C - Cervical biopsy 6 o clock Clinical Info: HGSIL Specimen Number: [id number] B AND C CPT code: 08397 x2, 37971 x2 METHODOLOGY: Deparaffinized sections of prefer/formalin-fixed tissue or PAP/DQ stained slides are incubated with monoclonal/polyclonal antibodies/oligonucleotide probes. Localization is made via biotin free immunoperoxidase method. Appropriate controls are performed and reacted as expected. Results on target cell population are indicated in the following table: RESULTS: ANTIBODY / CLONE RESULT Block B P16 (E6H4) positive, block staining Ki-67 (30-9) positive, moderate Block C P16 (E6H4) positive, patchy staining Ki-67 (30-9) positive, low These tests were developed and their performance characteristics determined by [facility]. They may not have been cleared or approved by the U.S. Food and Drug Administration. The FDA has determined that such clearance or approval is not necessary. INTERPRETATION: B. Cervix, 12 o clock, biopsy: Mild and moderate squamous dysplasia. C. Cervix, 6 o clock, biopsy: Focal changes consistent with HPV cytopathic effects. SJ:laura 02/13/18 PHYSICIAN AND INSTITUTION [address] [address] Signed Dejan Elizabeth 02/13/18 <signature on file> Performed By: #### [facility] #### [facility] [address] [place], [place] [address], [address] CBC-COMPLETE BLOOD CNT Collected: 01/16/2018 Status: F Source: [place] NO DIFF 2:51 PM [facility] REPOSITORY TYPE CODE TESTS RESULT OUT OF RANGE REFERENCE UNITS LAB L100.1000 4.4-11.0 K/mm3 Normal WBC 6.0 LAB L100.1200 4.2-5.4 M/mm3 Normal RBC 4.23 LAB L100.1300 12.0-15.0 g/dl Normal HGB 12.3 LAB L100.1400 37-47 % Normal HCT 38.1 LAB L100.1500 81-99 fL Normal MCV 90.1 LAB L100.1600 27.0-32.0 pg Normal MCH 29.1 LAB L100.1700 32-36 g/gl Normal MCHC 32.3 LAB L100.1810 11.6-14.6 % Normal RDW CV 13.5 LAB L100.1820 35.1-43.9 fl High RDW SD 44.4 LAB L100.1900 150-450 K/mm3 Normal PLT 243 LAB L100.2000 6.2-12.0 fl Normal MPV 10.1 Performed By: #### L100.0500 #### [facility] [address] [place], [address] FREE T3 Collected: 01/16/2018 Status: F Source: [place] 2:51 PM [facility] REPOSITORY TYPE CODE TESTS RESULT OUT OF RANGE REFERENCE UNITS LAB L501.27644 2.18-3.98 pg/mL Normal FREE T3 2.9 Performed By: #### L501.55541, L501.9520, L506.0400 #### [facility] [address] [place], [address] THYROID STIM HORMONE Collected: 01/16/2018 Status: F Source: [place] (TSH) 2:51 PM [facility] REPOSITORY TYPE CODE TESTS RESULT OUT OF RANGE REFERENCE UNITS LAB L501.9520 0.358-3.74 uIU/mL Normal TSH 1.62 Performed By: #### L501.49942, L501.9520, L506.0400 #### [facility] [address] [place], [address] T4 FREE DIRECT Collected: 01/16/2018 Status: F Source: [place] 2:51 PM [facility] REPOSITORY TYPE CODE TESTS RESULT OUT OF RANGE REFERENCE UNITS LAB L506.0400 0.76-1.46 ng/dL Normal T4 FREE 1.08 DIRECT Performed By: #### L501.42955, L501.9520, L506.0400 #### [facility] [address] [place], [address] CANCER ANTIGEN 125 Collected: 01/16/2018 Status: F Source: [place] 2:51 PM [facility] REPOSITORY TYPE CODE TESTS RESULT OUT OF RANGE REFERENCE UNITS LAB L3100.5000 0.0-38.1 U/mL Normal CA125 12.2 2303 Result Comment: Kirstie ECLIA methodology Performed at: [facility] [employer] [id number] Transportation Mechanic: Gabo Lake PhD, Phone: [phone] Performed By: #### L3100.5000 #### [facility] (refer to report for specific site) refer to report for address and phone number CT/NG WCH BY PCR Collected: 01/16/2018 Status: F Source: [place] 2:20 PM [facility] REPOSITORY TYPE CODE TESTS RESULT OUT OF RANGE REFERENCE UNITS LAB L8200.2100 Negative Normal Chlam Negative Trac PCR LAB L8200.2200 Negative Normal NG by Negative PCR Performed By: #### L8200.2000 #### [facility] [address] [place], [address] PAP I-G W/RFX Collected: 01/16/2018 Status: F Source: [place] HRHPV-APTIMA 2:20 PM [facility] REPOSITORY Order Comment: CYTOLOGY INFORMATION: - CLINICAL INFORMATION: - DATE LMP/MENOPAUSE: NEXPLANON LMP - COLLECTION VIAL: Thin Prep Vial - INTERNET TECHNOLOGY MANAGER SOURCE: CERVICAL/ENDOCERVICAL - COLLECTION TECHNIQUE: BRUSH/SPATULA Specimen Comment: [id number] Specimen Comment: No. of containers..01 ThinPrep Vial TYPE CODE TESTS RESULT OUT OF REFERENCE UNITS RANGE LAB L7400.0800 . High DIAGN Comment Result Comment: EPITHELIAL CELL ABNORMALITY. HIGH-GRADE SQUAMOUS INTRAEPITHELIAL LESION (HGSIL); MODERATE DYSPLASIA IS PRESENT. LAB L7400.0900 . Normal ADEQ Comment Result Comment: Satisfactory for evaluation. Endocervical and/or squamous metaplastic cells (endocervical component) are present. LAB L7400.1400 . Normal PERFORM Comment Result Comment: Elly Liu, Molding Technician (ASCP) LAB L7400.1700 . Normal SIGN Comment Result Comment: Stew Pina MD, Pathologist LAB L7400.1720 . Normal Path prov. Comment ICD9 Result Comment: R87.613 LAB L7400.2575 . Normal TEST METHOD Comment Result Comment: This liquid based ThinPrep(R) pap test was screened with the use of an image guided system. LAB L7400.2600 . Normal . COMM LAB L7400.2700 . Normal PAPSMR Comment Result Comment: The Pap smear is a screening test designed to aid in the detection of premalignant and malignant conditions of the uterine cervix. It is not a diagnostic procedure and should not be used as the sole means of detecting cervical cancer. Both false-positive and false-negative reports do occur. LAB L7400.2800 . Normal HPV RFLX Comment Result Comment: The HPV DNA reflex criteria were not met with this specimen result therefore, no HPV testing was performed. Performed at: [facility] [address] [place] [id number] Transportation Mechanic: Yefri Guerra MD, Phone: [phone] Performed at: - [facility] [id number] Transportation Mechanic: Adelaida Michaud MD, Phone: [phone] Performed By: #### L7400.0353 #### [facility] (refer to report for specific site) refer to report for address and phone number PROGRESS Observed: 12/11/2017 Status: COMPLETED Source: [place] 3:54 PM [facility] REPOSITORY HNO ID: [id number] Author: Thierry Riley Service: (none) Author Type: Physician Type: Progress Notes Filed: 12/23/2017 3:28 PM Note Text: NEUROLOGY PROGRESS NOTE- HEADACHE ASSESSMENT: - 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 Im not sure that all her symptoms are related to Chiari. I think Dr. Booker agrees since surgery has not been recommended. - IRON RECOMMENDATIONS: 1. Continue Gabapentin 2. Labs today 3. Syncope clinic referral HPI: Patient returns for follow up. Discontinuation of Diamox did not worsen headaches or cause vision changes. She sis not see ophthalmology as I had advised. I had recommended syncope clinic the lat time but no appointment made. Gabapentin is helping some with her headaches. Symptom hx: multiple complaints: headache, hand numbness, passing out. Patient says she is passing out. Patient says that she gets nauseous and then generalized weakness then passes out. Has not passed out since January 2017. Hands go numb after arms have been moving for a while. No vision changes. Normal exam.She saw the gas appliance servicer helper(last time 2 weeks ago) who did dilated exam and visual field tests and as per patient both were normal. 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 Although she has no papilledema, gave her Diamox which has not helped the headaches. She has not had a LP. She continues to take Diamox because it decreases feet swelling. Headache Description: Severity: moderate (2) and severe (3) Duration of attacks: constant for the last 3 months Age of onset of headaches: 2 years ago. No precipitant Location/Quality: Pain is behind the eyes, whole head pressure. Associated symptoms: Associated nausea, vomiting. Pain worsens with activity or movement Prior Treatments: Sumatriptan gave her chest pressure. Rizatriptan gave her neck pain. Neither of them helped the headache. Amitriptyline Current Outpatient Prescriptions: PARoxetine (PAXIL) 20 mg tablet Take 20 mg by mouth once daily. gabapentin (NEURONTIN) 300 mg capsule Take 1 capsule by mouth three times daily for 30 days. No current facility-administered medications for this visit. PAST MEDICAL HISTORY Diagnosis Date - Depression - IRON (generalized anxiety disorder) Social History Marital status: Single Spouse name: Years of education: Number of children: Social History Main Topics Smoking status: Current Every Day Smoker Packs/day: 0.50 Years: 0.00 Smokeless status: Never Used Alcohol use: No Drug use: No Sexual activity: No FAMILY HISTORY No known neurological disorders ALLERGIES Allergen Reactions - Ceclor [Cefaclor] Hives REVIEW OF SYSTEMS: GENERAL: no fevers or irritability. HEENT: no nose bleeds or other nasal problems. NECK: Negative for stiffness, lumps or significant neck swelling RESPIRATORY: Negative for cough, wheezing or respiratory distress. CARDIOVASCULAR: See HPI GI: Negative for abdominal discomfort, blood in stools or black stools or change in bowel habits : No history of dysuria, frequency or incontinence MUSCULOSKELETAL:See HPI SKIN: Negative for lesions, rash, and itching. 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 Thierry Riley MD [facility] [place] [address] [place] [address]/ [place] [address] CNOV Observed: 12/11/2017 Status: COMPLETED Source: [place] 3:40 PM [facility] REPOSITORY Office Visit (NEMAFV) RADHA ROBLES ([id number]) 1995 F T Date Time Provider Department 12/11/17 3:40 PM THIERRY RILEY NEMRAMIROV During your visit today, we recorded the following information about you: Temperature Pulse Respiration Blood pressure 98.1 degrees 59/minute 16/minute 98/51 Weight Height 61.2 kg 1.575 m Thierry Riley MD 12/23/2017 3:28 PM Signed NEUROLOGY PROGRESS NOTE- HEADACHE ASSESSMENT: - 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 Im not sure that all her symptoms are related to Chiari. I think Dr. Booker agrees since surgery has not been recommended. - IRON RECOMMENDATIONS: 1. Continue Gabapentin 2. Labs today 3. Syncope clinic referral HPI: Patient returns for follow up. Discontinuation of Diamox did not worsen headaches or cause vision changes. She sis not see ophthalmology as I had advised. I had recommended syncope clinic the lat time but no appointment made. Gabapentin is helping some with her headaches. Symptom hx: multiple complaints: headache, hand numbness, passing out. Patient says she is passing out. Patient says that she gets nauseous and then generalized weakness then passes out. Has not passed out since January 2017. Hands go numb after arms have been moving for a while. No vision changes. Normal exam.She saw the gas appliance servicer helper(last time 2 weeks ago) who did dilated exam and visual field tests and as per patient both were normal. 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 Although she has no papilledema, gave her Diamox which has not helped the headaches. She has not had a LP. She continues to take Diamox because it decreases feet swelling. Headache Description: Severity: moderate (2) and severe (3) Duration of attacks: constant for the last 3 months Age of onset of headaches: 2 years ago. No precipitant Location/Quality: Pain is behind the eyes, whole head pressure. Associated symptoms: Associated nausea, vomiting. Pain worsens with activity or movement Prior Treatments: Sumatriptan gave her chest pressure. Rizatriptan gave her neck pain. Neither of them helped the headache. Amitriptyline Current Outpatient Prescriptions: PARoxetine (PAXIL) 20 mg tablet Take 20 mg by mouth once daily. gabapentin (NEURONTIN) 300 mg capsule Take 1 capsule by mouth three times daily for 30 days. No current facility-administered medications for this visit. PAST MEDICAL HISTORY Diagnosis Date - Depression - IRON (generalized anxiety disorder) Social History Marital status: Single Spouse name: Years of education: Number of children: Social History Main Topics Smoking status: Current Every Day Smoker Packs/day: 0.50 Years: 0.00 Smokeless status: Never Used Alcohol use: No Drug use: No Sexual activity: No FAMILY HISTORY No known neurological disorders ALLERGIES Allergen Reactions - Ceclor [Cefaclor] Hives REVIEW OF SYSTEMS: GENERAL: no fevers or irritability. HEENT: no nose bleeds or other nasal problems. NECK: Negative for stiffness, lumps or significant neck swelling RESPIRATORY: Negative for cough, wheezing or respiratory distress. CARDIOVASCULAR: See HPI GI: Negative for abdominal discomfort, blood in stools or black stools or change in bowel habits : No history of dysuria, frequency or incontinence MUSCULOSKELETAL:See HPI SKIN: Negative for lesions, rash, and itching. 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 Thierry Riley MD [facility] [place] [address] [place] [address]/ [place] [address] Referring Provider: THIERRY RILEY [[id number]] Allergies As of Date: 12/11/2017 Noted Allergy Reaction CECLOR (CEFACLOR) 09/15/2017 4 - Hives Date Reviewed: 12/11/2017 Reviewed by: Noa De León MA Student - Fully Assessed Reason for Visit: Established Patient [175] Cmt: Follow up Chiari malformation Primary Visit Diagnosis:Syncope and collapse [R55] Order(s):CONSULT TO SYNCOPE CLINIC [9159140] Order #: [id number]: 1 CBC [SQCBC] Order #: [id number] FUTURE COMP METABOLIC PANEL [SQCMP] Order #: [id number] FUTURE gabapentin (NEURONTIN) 300 mg capsuleTake 1 capsule by mouth three times daily for 30 days.Disp: 90 capsuleRfl: 5 Prescriptions as of 12/11/2017 Sig: PAROXETINE 20 MG TABLET Take 20 mg by mouth once boom* GABAPENTIN 300 MG CAPSULE Take 1 capsule by mouth three* Problem List As Of Date: 12/11/2017 (None) Prescriptions ordered this encounter Disp Refills Start End GABAPENTIN 300 MG CAPSULE 90 c* 5 12/11/2017 01/10/2018 Route: ORAL Sig: Take 1 capsule by mouth three times daily for 30 days. Medications Discontinued During This Encounter acetaZOLAMIDE SR (DIAMOX SEQUELS) 50* 12/11/2017 Class: Historical Med Route: ORAL Sig: Take 500 mg by mouth once daily. Disc: Reason for discontinue is not on file. Encounter Status:Closed by THIERRY RILEY MD on 12/23/17 PROGRESS Observed: 12/04/2017 Status: COMPLETED Source: [place] 3:52 PM [facility] REPOSITORY HNO ID: [id number] Author: Antonina Booker Service: (none) Author Type: Physician Type: Progress Notes Filed: 12/11/2017 2:44 PM Note Text: CC : Elvirat with a new finding of chiari malformation. She was dx'd 2 years ago. Interval HPI : Ms. Robles is 22 year old female with chief complaint of multiple complaints: headache, light headedness, hand numbness, passing out. Patient has been having symptoms for a couple of years now. She feels that the neck pain is fairly constant. It is aggravated by turning her head. She will develop a migraine. Light headedness is brought on by bending over, and other times no aggravativng incidents. She feels that she has hand numbness as well as feet and arms. If she puts her arms up for more than a minute she will get numbness in the arms. Hands go numb after arms have been moving for a while. No vision changes. Normal exam .She saw the gas appliance servicer helper twice, both times no papilledema. She has stopped the diamox that she was given. She will get warren's on and off. She always has a lot of pressure. This is constant. She also has retrobulbar pain. + brain fog and memory difficulties. She has balance issues as well. ROS: see chart Current Medications : all meds are on the chart and have been reviewed by me. No change. Allergies : allergies are on the chart and have been reviewed by me. No change. EXAM : General Apparance : Alert,NAD HENT : Normocephalicears normal NECKsoft and no JVD noted Eyes : PERRL,EOMI Cranial nerves II - XII intact Past pointing : normal Finger to nose : normal Reflexes : normal and symmetric hyporeflexic DTRs Gait : steady coordinated Tandem walking : normal Rhomberg : negative Rapid alternating movements : Normal Coordination : Normal Strength : normal and symmetric Detailed Strength: Right Biceps : 5/5. Left Biceps : 5/5. Right Triceps : 5/5. Left Triceps : 5/5. Right Forearm : 5/5. Left Forearm : 5/5. Assessment : Chiari malformation 6 mm descent Plan : Spinal surveillance Flexion/extension x-ray F/u in 4-6 mos Luana Cheatham PA-C December 04, 2017 3:52 PM Antonina Booker MD CNOV Observed: 12/04/2017 Status: COMPLETED Source: [place] 3:10 PM [facility] REPOSITORY Office Visit (NSFRVW) RADHA ROBLES ([id number]) 1995 F T Date Time Provider Department 12/04/17 3:10 PM ANTONINA BOOKER NSFRVW During your visit today, we recorded the following information about you: Temperature Pulse Blood pressure Weight 98 degrees 64/minute 122/57 63 kg Height 1.575 m Antonina Booker MD 12/11/2017 2:44 PM Signed CC : Rula with a new finding of chiari malformation. She was dx'd 2 years ago. Interval HPI : Ms. Robles is 22 year old female with chief complaint of multiple complaints: headache, light headedness, hand numbness, passing out. Patient has been having symptoms for a couple of years now. She feels that the neck pain is fairly constant. It is aggravated by turning her head. She will develop a migraine. Light headedness is brought on by bending over, and other times no aggravativng incidents. She feels that she has hand numbness as well as feet and arms. If she puts her arms up for more than a minute she will get numbness in the arms. Hands go numb after arms have been moving for a while. No vision changes. Normal exam .She saw the gas appliance servicer helper twice, both times no papilledema. She has stopped the diamox that she was given. She will get warren's on and off. She always has a lot of pressure. This is constant. She also has retrobulbar pain. + brain fog and memory difficulties. She has balance issues as well. ROS: see chart Current Medications : all meds are on the chart and have been reviewed by me. No change. Allergies : allergies are on the chart and have been reviewed by me. No change. EXAM : General Apparance : Alert,NAD HENT : Normocephalicears normal NECKsoft and no JVD noted Eyes : PERRL,EOMI Cranial nerves II - XII intact Past pointing : normal Finger to nose : normal Reflexes : normal and symmetric hyporeflexic DTRs Gait : steady coordinated Tandem walking : normal Rhomberg : negative Rapid alternating movements : Normal Coordination : Normal Strength : normal and symmetric Detailed Strength: Right Biceps : 5/5. Left Biceps : 5/5. Right Triceps : 5/5. Left Triceps : 5/5. Right Forearm : 5/5. Left Forearm : 5/5. Assessment : Chiari malformation 6 mm descent Plan : Spinal surveillance Flexion/extension x-ray F/u in 4-6 mos Luana Cheatham PA-C December 04, 2017 3:52 PM Antonina Booker MD Referring Provider: THIERRY RILEY [[id number]] Allergies As of Date: 12/04/2017 Noted Allergy Reaction CECLOR (CEFACLOR) 09/15/2017 4 - Hives Date Reviewed: 12/04/2017 Reviewed by: Bakari Orantes Ma - Fully Assessed Reason for Visit: New Patient [172] Primary Visit Diagnosis:Chiari malformation type I (HCC) [G93.5] Order(s):MRI CERVICAL SPINE WO IVCON [[id number]] Order #: [id number] FUTURE MRI THORACIC SPINE WO IVCON [[id number]] Order #: [id number] FUTURE MRI LUMBAR SPINE WO IVCON [[id number]] Order #: [id number] FUTURE XR CERV OTHER 4V AP/LAT/FLX/EXT [[id number]] Order #: [id number] FUTURE Prescriptions as of 12/04/2017 Sig: ACETAZOLAMIDE ER 500 MG CAPSU* Take 500 mg by mouth once chidi* PAROXETINE 20 MG TABLET Take 20 mg by mouth once boom* Medication notes this encounter ACETAZOLAMIDE ER 500 MG CAPSULE,EXTENDED RELEASE >> Bakari Orantes Ma 12/04/2017 3:13 PM >> BAKARI ORANTES MA Isabel Dec 04, 2017 3:13 PM No longer taking Problem List As Of Date: 12/04/2017 (None) Disposition: Return in about 4 months (around 04/05/2018) for Follow up after imaging complete. Follow-up and Disposition History Recorded Letter Text Antonina Booker MD [address] [place] [address] December 05, 2017 [place] [address] [facility] [facility] [address] V[facility] In Basket Re: Radha Robles : [address] Riley, Thank you for the opportunity to participate in the care of your patient Radha Robles, who I saw at [facility] [place] on 12/04/2017. My Assessment and Plan are as follows: CC : Patient with a new finding of chiari malformation. She was dx'd 2 years ago. Interval HPI : Ms. Robles is 22 year old female with chief complaint of multiple complaints: headache, light headedness, hand numbness, passing out. Patient has been having symptoms for a couple of years now. She feels that the neck pain is fairly constant. It is aggravated by turning her head. She will develop a migraine. Light headedness is brought on by bending over, and other times no aggravativng incidents. She feels that she has hand numbness as well as feet and arms. If she puts her arms up for more than a minute she will get numbness in the arms. Hands go numb after arms have been moving for a while. No vision changes. Normal exam .She saw the gas appliance servicer helper twice, both times no papilledema. She has stopped the diamox that she was given. She will get warren's on and off. She always has a lot of pressure. This is constant. She also has retrobulbar pain. + brain fog and memory difficulties. She has balance issues as well. ROS: see chart Current Medications : all meds are on the chart and have been reviewed by me. No change. Allergies : allergies are on the chart and have been reviewed by me. No change. EXAM : General Apparance : Alert,NAD HENT : Normocephalicears normal NECKsoft and no JVD noted Eyes : PERRL,EOMI Cranial nerves II - XII intact Past pointing : normal Finger to nose : normal Reflexes : normal and symmetric hyporeflexic DTRs Gait : steady coordinated Tandem walking : normal Rhomberg : negative Rapid alternating movements : Normal Coordination : Normal Strength : normal and symmetric Detailed Strength: Right Biceps : 5/5. Left Biceps : 5/5. Right Triceps : 5/5. Left Triceps : 5/5. Right Forearm : 5/5. Left Forearm : 5/5. Assessment : Chiari malformation 6 mm descent Plan : Spinal surveillance Flexion/extension x-ray F/u in 4-6 mos CHETNA Moralez MD If you have any questions or need additional information, please feel free to contact me. Thanks again for your kind referral. Best regards, Antonina Booker MD If you would like your next patient report to be electronic, please consider signing up for [facility]'s [employer] service. This is a complimentary service that enables you to view real-time information about the treatment your patients receive while at [facility]. To register online to use [employer], simply log onto plymouthPopulr/Fullscreen and click the register button to begin. If you need assistance, please contact [employer] customer support at [phone] or [email or web address]. Encounter Status:Closed by ANTONINA BOOKER MD on 12/11/17 MRI BRAIN WO IVCON Observed: 12/04/2017 Status: F Source: [place] 12:36 PM CLINIC OTHER CAMPUS REPOSITORY * * *Final Report* * * DATE OF EXAM: Dec 04 2017 12:36PM [facility] 0294 - MRI BRAIN WO IVCON / PROCEDURE REASON: CHIARI 1 MALFORMATION * * * * Physician Interpretation * * * * EXAMINATION: MRI BRAIN WO IVCON HISTORY: CHIARI 1 MALFORMATION TECHNIQUE: Routine noncontrast MRI protocol including diffusion images. MQ: [id number] COMPARISON: None. RESULT: Acute Change: There is no evidence of restricted diffusion to suggest an acute infarct. Hemorrhage: No evidence of prior parenchymal hemorrhage on the gradient echo images. Mass Lesion/ Mass Effect: No evidence of an intracranial mass or extra-axial fluid collection. No significant mass effect. Chronic Change: The white matter is within normal limits of signal intensity for age. Parenchyma: No significant volume loss for age. The brain parenchyma is otherwise within normal limits of signal intensity and morphology. Chiari I malformation with the cerebellar tonsils extending 6 mm below level of foramen magnum. Upper imaged cervical spinal cord appears normal in signal intensity and morphology. There is biphasic CSF flow both anterior and posterior to the upper cervical spinal cord and at level of foramen magnum. Anteriorly there is biphasic flow to level the prepontine cistern. Minimal if any biphasic flow present within the fourth ventricle and cerebral aqueduct which may be technical in nature. Ventricles: Normal caliber and morphology. Skull Base: Hypothalamic and pituitary region are grossly normal. Craniocervical junction is normal. No significant marrow replacement process. Vasculature: Major intracranial arterial structures, and dural venous sinuses show typical flow void, suggesting patency by spin echo criteria. Other: The visualized paranasal sinuses and mastoid air cells are clear. The orbits and extracranial soft tissues are unremarkable. IMPRESSION: Chiari I malformation as detailed above. Otherwise unremarkable exam. Borough Coordinator: LESLEY Transcribe Date/Time: Dec 04 2017 12:53P Dictated by : MARY MAURER MD This examination was interpreted and the report reviewed and electronically signed by: MARY MAURER MD on Dec 04 2017 1:01PM EST [id number] Observed: 09/15/2017 Status: COMPLETED Source: [place] 9:32 AM [facility] REPOSITORY [facility] ID: [id number] Author: Thierry Riley Service: (none) Author Type: Physician Type: Progress Notes Filed: 09/17/2017 2:47 PM Note Text: NEUROLOGY CONSULT- HEADACHE- ACCESS CLINIC SERVICE DATE: 09/15/2017 Referring Provider: Sd Fernandes Our recommendations of care will be communicated by shared medical record. 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 Passing out - no driving recommended for 6 months per state law - syncope clinic 2. IRON: - needs to establish care with a psychiatrist 3. Chiari 1: - MRI brain with CSF flow study 4. I don't think she needs to be on the Diamox but she was told she had IIH so the plan is for her to come off the Diamox and then have an eye exam 2 weeks after discontinuation. Then after that if there is no papilledema she can continue off the Diamox with dilated eye exams at a month and then 3 months after stopping. If there is papilledema then she should restart the Diamox. HPI: This is Ms. Radha Robles a 21 year old female who presents to the [facility] with a chief complaint of multiple complaints: headache, hand numbness, passing out. Patient says she is passing out. Patient says that she gets nauseous and then generalized weakness then passes out. Has not passed out since January 2017. Hands go numb after arms have been moving for a while. No vision changes. Normal exam.She saw the gas appliance servicer helper(last time 2 weeks ago) who did dilated exam and visual field tests and as per patient both were normal. 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 Although she has no papilledema, gave her Diamox which has not helped the headaches. She has not had a LP. She continues to take Diamox because if decreases feet swelling. Headache Description: Severity: moderate (2) and severe (3) Duration of attacks: constant for the last 3 months Number of headache days/month: daily Age of onset of headaches: 2 years ago. No precipitant Location/Quality: Pain is behind the eyes, whole head pressure. Associated symptoms: Associated nausea, vomiting. Pain worsens with activity or movement Prior Treatments: Sumatriptan gave her chest pressure. Rizatriptan gave her neck pain. Neither of them helped the headache. Amitriptyline Current Outpatient Prescriptions: acetaZOLAMIDE SR (DIAMOX SEQUELS) 500 mg capsule Take 500 mg by mouth once daily. PARoxetine (PAXIL) 20 mg tablet Take 20 mg by mouth once daily. No current facility-administered medications for this visit. PAST MEDICAL HISTORY Diagnosis Date - Depression - IRON (generalized anxiety disorder) Social History Marital status: Single Spouse name: Years of education: Number of children: Social History Main Topics Smoking status: Current Every Day Smoker Packs/day: 0.50 Years: 0.00 Smokeless status: Never Used Alcohol use: No Drug use: No Sexual activity: No FAMILY HISTORY No known neurological disorders ALLERGIES Allergen Reactions - Ceclor [Cefaclor] Hives REVIEW OF SYSTEMS: GENERAL: no fevers or irritability. HEENT: no nose bleeds or other nasal problems. NECK: Negative for stiffness, lumps or significant neck swelling RESPIRATORY: Negative for cough, wheezing or respiratory distress. CARDIOVASCULAR: See HPI GI: Negative for abdominal discomfort, blood in stools or black stools or change in bowel habits : No history of dysuria, frequency or incontinence MUSCULOSKELETAL:See HPI SKIN: Negative for lesions, rash, and itching. NEURO: See HPI PHYSICAL EXAM: BP 103/56 (BP Site: Left Arm, BP Position: Sitting, BP Cuff Size: Regular Adult) Pulse (!) 57 Temp 36.9 ?C (98.5 ?F) Resp 20 Ht 157.5 cm (5' 2) Wt 66.2 kg (145 lb 14.4 oz) SpO2 98% BMI 26.69 kg/m2 Mental Status: alert, oriented to person, place and time and follows commands. Funduscopic exam: no papilledema, flat disc Cranial Nerves: CNII: visual leon full to confrontation CNIII, IV, : Pupils equal, round and reactive to light, full extraocular movements without nystagmus CN V: Facial sensation intact bilaterally to fine touch CN VII: Facial muscles symmetric and strong CN VIII: Hears finger rub well bilaterally CN IX: Gag Reflex Intact CN X: Palate elevates symmetrically CN XI: Full strength shoulder shrug bilaterally CN XII: Tongue protrusion full and midline Neck is supple Motor Exam: 5/5 strength throughout, no drift in upper and lower extremities. Reflexes: symmetric bilaterally Sensation: Intact to light touch in upper and lower extremities. Coordination: finger-to- nose intact bilaterally. Gait: Patient's gait is normal. 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 SIGNATURE: Thierry Riley MD PATIENT NAME: Radha Robles DATE: September 15, 2017 TIME: 9:32 AM PAGER/CONTACT #: CNOV Observed: 09/15/2017 Status: COMPLETED Source: [place] 8:40 AM [facility] REPOSITORY Office Visit (NEACFV) RADHA ROBLES ([id number]) 1995 F CHT Date Time Provider Department 09/15/17 8:40 AM ASSESSMENT NEUR ACCESS CL [facility]VWNEACFV During your visit today, we recorded the following information about you: Temperature Pulse Respiration Blood pressure 98.5 degrees 57/minute 20/minute 103/56 Weight Height 66.2 kg 1.575 m Thierry Riley MD 09/17/2017 2:47 PM Signed NEUROLOGY CONSULT- HEADACHE- ACCESS CLINIC SERVICE DATE: 09/15/2017 Referring Provider: Sd Fernandes Our recommendations of care will be communicated by shared medical record. 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 Passing out - no driving recommended for 6 months per state law - syncope clinic 2. IRON: - needs to establish care with a psychiatrist 3. Chiari 1: - MRI brain with CSF flow study 4. I don't think she needs to be on the Diamox but she was told she had IIH so the plan is for her to come off the Diamox and then have an eye exam 2 weeks after discontinuation. Then after that if there is no papilledema she can continue off the Diamox with dilated eye exams at a month and then 3 months after stopping. If there is papilledema then she should restart the Diamox. HPI: This is Ms. Radha Robles a 21 year old female who presents to the [facility] with a chief complaint of multiple complaints: headache, hand numbness, passing out. Patient says she is passing out. Patient says that she gets nauseous and then generalized weakness then passes out. Has not passed out since January 2017. Hands go numb after arms have been moving for a while. No vision changes. Normal exam.She saw the gas appliance servicer helper(last time 2 weeks ago) who did dilated exam and visual field tests and as per patient both were normal. 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 Although she has no papilledema, gave her Diamox which has not helped the headaches. She has not had a LP. She continues to take Diamox because if decreases feet swelling. Headache Description: Severity: moderate (2) and severe (3) Duration of attacks: constant for the last 3 months Number of headache days/month: daily Age of onset of headaches: 2 years ago. No precipitant Location/Quality: Pain is behind the eyes, whole head pressure. Associated symptoms: Associated nausea, vomiting. Pain worsens with activity or movement Prior Treatments: Sumatriptan gave her chest pressure. Rizatriptan gave her neck pain. Neither of them helped the headache. Amitriptyline Current Outpatient Prescriptions: acetaZOLAMIDE SR (DIAMOX SEQUELS) 500 mg capsule Take 500 mg by mouth once daily. PARoxetine (PAXIL) 20 mg tablet Take 20 mg by mouth once daily. No current facility-administered medications for this visit. PAST MEDICAL HISTORY Diagnosis Date - Depression - IRON (generalized anxiety disorder) Social History Marital status: Single Spouse name: Years of education: Number of children: Social History Main Topics Smoking status: Current Every Day Smoker Packs/day: 0.50 Years: 0.00 Smokeless status: Never Used Alcohol use: No Drug use: No Sexual activity: No FAMILY HISTORY No known neurological disorders ALLERGIES Allergen Reactions - Ceclor [Cefaclor] Hives REVIEW OF SYSTEMS: GENERAL: no fevers or irritability. HEENT: no nose bleeds or other nasal problems. NECK: Negative for stiffness, lumps or significant neck swelling RESPIRATORY: Negative for cough, wheezing or respiratory distress. CARDIOVASCULAR: See HPI GI: Negative for abdominal discomfort, blood in stools or black stools or change in bowel habits : No history of dysuria, frequency or incontinence MUSCULOSKELETAL:See HPI SKIN: Negative for lesions, rash, and itching. NEURO: See HPI PHYSICAL EXAM: BP 103/56 (BP Site: Left Arm, BP Position: Sitting, BP Cuff Size: Regular Adult) Pulse (!) 57 Temp 36.9 ?C (98.5 ?F) Resp 20 Ht 157.5 cm (5' 2ANDquot;) Wt 66.2 kg (145 lb 14.4 oz) SpO2 98% BMI 26.69 kg/m2 Mental Status: alert, oriented to person, place and time and follows commands. Funduscopic exam: no papilledema, flat disc Cranial Nerves: CNII: visual leon full to confrontation CNIII, IV, : Pupils equal, round and reactive to light, full extraocular movements without nystagmus CN V: Facial sensation intact bilaterally to fine touch CN VII: Facial muscles symmetric and strong CN VIII: Hears finger rub well bilaterally CN IX: Gag Reflex Intact CN X: Palate elevates symmetrically CN XI: Full strength shoulder shrug bilaterally CN XII: Tongue protrusion full and midline Neck is supple Motor Exam: 5/5 strength throughout, no drift in upper and lower extremities. Reflexes: symmetric bilaterally Sensation: Intact to light touch in upper and lower extremities. Coordination: finger-to- nose intact bilaterally. Gait: Patient's gait is normal. 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 SIGNATURE: Thierry Riley MD PATIENT NAME: Radha Robles DATE: September 15, 2017 TIME: 9:32 AM PAGER/CONTACT #: Referring Provider: SD FERNANDES [[id number]] Allergies As of Date: 09/15/2017 Noted Allergy Reaction CECLOR (CEFACLOR) 09/15/2017 4 - Hives Date Reviewed: Never Reviewed Reason for Visit: New Patient [172] Primary Visit Diagnosis:Syncope and collapse [R55] Other Visit Diagnosis:Chiari I malformation (HCC) [G93.5] Order(s):CONSULT TO SYNCOPE CLINIC [[id number]] Order #: [id number]: 1 MRI BRAIN WO IVCON [[id number]] Order #: [id number] FUTURE CONSULT TO NEUROSURGERY [[id number]] Order #: [id number]: 1 Prescriptions as of 09/15/2017 Sig: ACETAZOLAMIDE ER 500 MG CAPSU* Take 500 mg by mouth once chidi* PAROXETINE 20 MG TABLET Take 20 mg by mouth once boom* Problem List As Of Date: 09/15/2017 (None) Disposition: Return in about 1 month (around 10/16/2017). Follow-up and Disposition History Recorded Encounter Status:Closed by THIERRY RILEY MD on 09/17/17 ALLERGIES ALLERGIES DATE TYPE / CODE NAME / CODE REACTION SEVERITY SOURCE 03/16/2018 Drug cefaclor/[id number] Hives Unknown [facility] Allergy/416 7203(RXNORM) [facility] 603442([facility] [place] Repository ED CT) 09/15/2017 DRUG CEFACLOR HIVES [facility] INGREDI/419 Other [place] 900944(SNOM Repository ED CT) ENCOUNTERS ENCOUNTERS ADMIT/DISCHARGE ACCOUNT NUMBER ADMITTING ENCOUNTER LOCATION SOURCE CLASS 07/20/2018 [id number] Ambulatory [facility] ding:LABSPEC Repository 07/13/[id number] [facility] Repository 06/22/2018 [id number] Ambulatory [facility] ding:RAD.FUT Repository URE 06/01/2018/06/01/20 [id number] Ambulatory [address] Repository 06/01/2018/06/15/20 [id number] Ambulatory [address] Repository 06/01/2018/06/01/20 [id number] Ambulatory [address] Repository 04/16/2018/04/20/20 [id number] Ambulatory [address] Repository 03/19/2018/03/19/20 [id number] Ambulatory [address] ding:SDC Repository 03/16/2018 [id number] Ambulatory [facility] Repository 02/13/2018 [id number] Ambulatory [facility] [place] Repository 02/13/2018/02/14/20 [id number] Ambulatory [address] Repository 02/13/2018/02/14/20 [id number] Ambulatory [address] Repository 02/10/2018 [id number] Ambulatory [facility] ding:LABSPEC Repository 01/16/2018 [id number] Ambulatory [facility] ding:WOBLAB Repository 12/11/2017/12/12/19 [id number] Ambulatory [address] Repository 12/04/2017/12/13/19 [id number] Ambulatory [address] Repository 12/04/2017 [id number] [facility] [place] Repository 09/15/2017/09/15/19 [id number] Ambulatory [address] Repository PAYERS PAYERS ENCOUNTER GUARANTOR PAYER SUBSCRIBER SOURCE 07/20/2018 RADHA BOWENS Primary Bill Mario EchevarriaB: Marisa [address], Insurance:ANTHEMPolic [id number] [facility] 06782Nqk: y Number: Hospital [id number] Repository (HP) Date:5288-10-00WZ [address], [place] [address]UD: 07/20/2018 Secondary RADHA R Marisa Insurance:CARESOURCEP YOSTDOB: [facility] olic Number: [id number] Hospital [id number] Repository Date:2018-07-20P [address]ATTN: [place] [address]XD: 07/20/2018 Tertiary NOT GIVENUNK [facility] Insurance:SELF PAY [facility] Number: Effective Repository Date:2018-07-20 06/22/2018 RADHA R Primary Bill R YostDOB: [facility] [id number] DIANA Insurance:ANTHEMPolic [id number] [facility] BOX y Number: [address] [id number] Repository [address]Jhn: (330) Date:6546-28-41YK [phone] () [id number], [place] [address]HA: 06/22/2018 Secondary RADHA R Marisa Insurance:CARESOURCEP YOSTDOB: [facility] Number: [id number] Hospital [id number] Repository Date:2018-06-22[address]ATTN: [place] [address]WQ: 06/22/2018 Tertiary NOT GIVENUNK [facility] Insurance:SELF PAY [facility] Number: Effective Repository Date:2018-06-22 03/19/2018 RADHA R Primary Bill R YostDOB: [facility] [id number] DIANA Insurance:ANTHEMPolic [id number] [facility] BOX y Number: [address] [id number] Repository [address]Kfy: (330) Date:1034-03-93RK [phone] () [id number] LANDEROS [address]BT: 03/19/2018 Secondary RADHA R Marisa Insurance:CARESOURCEP YOSTDOB: Community olicy Number: [id number] Hospital [id number] Repository Date:2018-03-03 [address]ATTN: [place] [address]NK: 03/19/2018 Tertiary NOT GIVENUNK [facility] Insurance:SELF PAY [facility] Hospital Number: Effective Repository Date:2018-03-03 03/16/2018 RADHA R Primary Bill R YostDOB: [facility] [id number] DIANA Insurance:ANTHEMPolic [id number] [facility] BOX y Number: [address] [id number] Repository [address]Fbh: (330) Date:8924-56-58NV [phone] () [address] [place] [address]GH: 03/16/2018 Secondary RADHA R [facility] Insurance:CARESOURCEP YOSTDOB: Community olicy Number: [id number] Hospital [id number] Repository Date:2018-03-03 [address]ATTN: [place] [address]MH: 03/16/2018 Tertiary NOT GIVENUNK [facility] Insurance:SELF PAY [facility] Number: Effective Repository Date:2018-03-16 02/10/2018 RADHA R Primary Bill R YostDOB: [facility] [id number] DIANA Insurance:ANTHEMPolic [id number] [facility] [address] y Number: [address] [id number] Repository [address]Hdg: (330) Date:6358-28-91QN [phone] () [address] [place] [address] [place] [address]FS: 02/10/2018 Secondary RADHA R Marisa Insurance:CARESOURCEP YOSTDOB: Community olicy Number: [id number] Hospital [id number] Repository Date:2018-02-10P [address]ATTN: [place] [address]JU: 02/10/2018 Tertiary NOT GIVENUNK Marisa Insurance:SELF PAY [facility] Hospital Number: Effective Repository Date:2018-02-10 01/16/2018 Radha Daley Primary Bill R DeivB: [address] Insurance:ANTHEMPolic [id number] [facility] [address] Number: [facility] [address]Tlq: [id number] Repository Date:5578-99-39HE [address]OX (CN) [address], [place] [address]PP: 01/16/2018 Secondary RADHA ECHEVARRIAXena: Marisa Insurance:CARESOURCEP [id number] Number: Hospital [id number] Repository Date:2018-01-16P [address]ATTN: [place] [address]RX: 01/16/2018 Tertiary NOT GIVENUNK Marisa Insurance:SELF PAY [facility] Hospital Number: Effective Repository Date:2018-01-16
== END ==
PROVIDERS: Visit Provider Obstetrics & Gynecology
DX: N39.0 Urinary tract infection, site not specified (principal); N30.90 Cystitis, unspecified without hematuria
CPT/HCPCS: 87086

== ENCOUNTER → 2018-08-31 14:31 | Outpatient (CLI) | payer BC, MEDICAID, SELFPAY ==
[2018-08-31 15:40] LABS: Homocysteine 5.9 umol/L (3.2-10.7); Vitamin B12 753 pg/mL (211-911); Vitamin D,25 Hydroxy 21.4 ng/mL (29.95-100.01)
[2018-08-31 21:16] LABS: Chlamydia Trachomatis by PCR Negative (Negative); Neisserai gonorrhoeae by PCR Negative (Negative); Probe Check PASS; Sample Adequacy Control PASS; Specimen Processing Control PASS
[2018-09-04 12:44] LABS: HPV Reflexed? NOT INDICATED
== END ==
PROVIDERS: Visit Provider Obstetrics & Gynecology
DX: R53.83 Other fatigue (principal); R53.81 Other malaise; Z12.4 Encounter for screening for malignant neoplasm of cervix; Z11.3 Encounter for screening for infections with a predominantly sexual mode of transmission
CPT/HCPCS: 36415; 82306; 82607; 83090; 83921; 87491; 87591; 87624; 88175; G0145

== ENCOUNTER → 2018-10-20 14:56 | Outpatient (CLI) | payer BC, MEDICAID, SELFPAY ==
[2018-10-20 14:59] LABS: Bacteria 0 SEEN /hpf (None Seen); Mucous, Urine 0 SEEN /hpf (<or=2+); Red Blood Cells-Urine 0 SEEN /hpf (0-5); White Blood Cells 0 SEEN /hpf (0-5)
[2018-10-20 15:36] LABS: Color, Urine Yellow (Yellow); Glucose, Dipstick Normal (Normal); Ketone-Dipstick Negative (Negative); Leukocyte Esterase-Dipstick Negative /ul (Negative); Nitrite-Dipstick Negative (Negative); Occult Blood-Urine 10 /ul (Negative); Protein-Dipstick Negative (Negative); Specific Gravity, Urine 1.015 (1.002-1.030); Urine Bilirubin Dipstick Negative (Negative); Urine Clarity Clear (Clear); Urine Urobilinogen Normal (Normal)
[2018-10-20 15:50] LABS: Squamous Epithelial Cells - UA 5-10 SEEN /hpf (5-10)
== END ==
PROVIDERS: Visit Provider Obstetrics & Gynecology
DX: N39.0 Urinary tract infection, site not specified (principal)
CPT/HCPCS: 81001; 87086; 87088

== ENCOUNTER 2018-12-04 19:25 | Emergency (ER) | payer BC, MEDICAID, SELFPAY ==
[2018-12-04 19:26] VITALS: BP 133/82; PULSE 85; PULSE 99; RESP 17; TEMP 36.5; O2SAT 100; BMI 24.7
--- NOTE | 2018-12-04 20:49 | CT_ITS ---
STUDY: CT ABDOMEN AND PELVIS WITHOUT CONTRAST REASON FOR EXAM: Female, 23 years old. Back pain and hematuria RADIATION DOSAGE (If Supplied By Facility): CTDIvol = ( 6.61 ) mGy, DLP = ( 320.29 ) mGycm TECHNIQUE: Transaxial images were obtained from the dome of the diaphragm to the symphysis pubis without oral contrast, and without intravenous contrast. Sagittal and coronal images were reconstructed. Individualized dose optimization techniques were used for this CT. COMPARISON: None. FINDINGS: The visualized lung bases are unremarkable. The visualized portions of the heart are within normal limits. Normal liver. Normal gallbladder and extrahepatic biliary system. Normal spleen. Normal pancreas. Normal bilateral adrenal glands. Normal right kidney. Normal left kidney. Normal visualized stomach. Normal small intestine. There is moderate stool in the colon. The appendix is visualized and appears normal. Normal abdominal aorta. Normal inferior vena cava. There are a few nonspecific subcentimeter periaortic lymph nodes. Normal urinary bladder. Normal visualized uterus. There is a small amount of free fluid in the pelvis. There are decorative piercings at the mons pubis /labia. There is a broad disc bulge at L5-S1, there is mild bilateral neural foramina narrowing no significant central stenosis. CT/Abdomen/Pelvis without Cont IMPRESSION: No evidence of renal ureteral or bladder calculi or evidence of hydronephrosis. Small amount of free fluid in the pelvis could consider a recently ruptured ovarian cyst. Broad disc bulge L5-S1 mild neural foraminal narrowing. No evidence of appendicitis. Electronically Signed: Ave Rabago MD at 22:30 EDT Tel , Service support ,
--- NOTE | 2018-12-04 20:56 | ED.DCSUM_ITS ---
- ER Visit Summary Date of Service: 12/04/18 Chief Complaint: Abdominal pain History of Present Illness: The patient is a 23 F presenting with abdominal pain. States that this started earlier this morning. She complains of right upper quadrant abdominal pain. It worsened with eating today. She has nausea with no vomiting. She denies diarrhea. Denies dysuria. She complains of hematuria and dark colored urine. Denies fever. Denies other complaints. Physical Examination: Vitals are stable. Patient is afebrile. Alert no acute distress. HEENT exam is unremarkable. Neck is supple. Lungs are clear and equal bilaterally. Heart is regular rate and rhythm. Abdomen is soft right upper quadrant tenderness with no rebound or guarding Back: Mild right CVA tenderness Extremities are unremarkable. Skin is warm and dry. No focal neurologic deficit. Remainder of exam is unremarkable. Emergency Department Course and Treatment: Patient given morphine, Zofran IV. CBC normal except hemoglobin 11.3. Chemistries unremarkable. Liver lipase are normal. Urinalysis shows 25-50 white blood cells, over 100 red blood cells. D- dimer negative. HCG negative. CT flank shows no evidence of renal ureteral or bladder calculi or evidence of hydronephrosis. Small amount of free fluid in the pelvis could consider a recently ruptured ovarian cyst. Broad disc bulge L5-S1 mild neural foraminal narrowing. No evidence of appendicitis. On reevaluation patient is resting comfortably. She is given Cipro. She is advised to follow- up with her primary care physician. Advised return to ED if worsening complaints. Disposition: Discharge home Impression: Pyelonephritis This note was generated with [employer] dictation software. It may contain incorrect words, spelling, and punctuation that were not noted in review of the chart prior to signing ED Disposition - Plan for ED Patient: Referrals: Sd Osman [Primary Care Provider] -
[2018-12-04] MEDS: 0.9% Normal Saline 1,000 ML 1000 ML IV (21:03)
[2018-12-04] MEDS: Morphine 4 MG/ML Syringe IV (21:04)
[2018-12-04] MEDS: Ondansetron 4 MG/2 ML Vial IV (21:04)
[2018-12-04 21:16] LABS: Bacteria 0 SEEN /hpf (None Seen); Mucous, Urine 0 SEEN /hpf (<or=2+)
[2018-12-04 21:19] LABS: Color, Urine Brown (Yellow); Glucose, Dipstick Normal (Normal); Ketone-Dipstick Negative (Negative); Leukocyte Esterase-Dipstick 100 /ul (Negative); Nitrite-Dipstick Positive (Negative); Occult Blood-Urine 250 /ul (Negative); Protein-Dipstick 100 mg/dl (Negative); Urine Bilirubin Dipstick Negative (Negative); Urine Clarity Cloudy (Clear); Urine Urobilinogen Normal (Normal)
[2018-12-04 21:24] LABS: Absolute Lymphocyte Count 1.57 X10^3/ul (0.83-4.51); Basophil# 0.01 X10^3/uL; Basophil% 0.2 % (0-1); Eosinophil# 0.05 X10^3/uL; Eosinophils% 0.8 % (0-5); Hematocrit 35.1 % (37-47); Hemoglobin 11.3 g/dl (12.0-15.0); Lymphocyte # 1.57 X10^3/ul (4.0); Lymphocyte % 24.3 % (19-41); Mean Corp Hgb Conc 32.2 g/gl (32-36); Mean Corpuscular Hgb 28.8 pg (27.0-32.0); Mean Corpuscular Volume 89.5 fL (81-99); Mean Platelet Vol. 9.6 fl (6.2-12.0); Monocyte# 0.88 X10^3/uL; Monocyte% 13.6 % (0-10); Neutrophil # 3.95 X10^3/uL (2.7-7.7); Neutrophil % 60.9 % (47-70); POSITIVE COUNT NO; POSITIVE DIFFERENTIAL NO; POSITIVE MORPHOLOGY NO; Platelet Count 262 K/mm3 (150-450); RBC Distribution Width CV 13.6 % (11.6-14.6); RBC Distribution Width SD 44.4 fl (35.1-43.9); Red Blood Count 3.92 M/mm3 (4.2-5.4); White Blood Count 6.5 K/mm3 (4.4-11.0)
[2018-12-04 21:33] LABS: D-Dimer Quantitative (DVT/PE) < 0.27 FEU/ug/m (0.27-0.49)
[2018-12-04 21:34] VITALS: BP 114/76; PULSE 64; RESP 16; TEMP 36.9; O2SAT 97
[2018-12-04 21:40] LABS: Red Blood Cells-Urine > 100 SEEN /hpf (0-5); Squamous Epithelial Cells - UA 0-5 SEEN /hpf (5-10)
[2018-12-04 21:42] LABS: White Blood Cells 25-50 SEEN /hpf (0-5)
[2018-12-04 21:44] LABS: AST(SGOT) 12 U/L (15-37); Alanine Aminotransfer ALT/SGPT 16 U/L (13-56); Albumin, Serum 4.1 g/dL (3.2-5.0); Alkaline Phosphatase 63 U/L (45-117); Anion Gap 6 (5-15); BUN 9 mg/dL (7-18); BUN/Creat Ratio 11.5 RATIO (10-20); Bilirubin, Direct 0.18 mg/dL (0.00-0.30); Calcium,Total 8.9 mg/dL (8.5-10.1); Chloride 107 mmol/L (98-107); Creatinine, Serum 0.78 mg/dL (0.55-1.02); EST Glomerular Filtration Rate 97 mL/min (>60); Est Glom Filt Rate - Afr Amer 117 mL/min (>60); Estimated Creatinine Clearance 88.72 ml/min; Glucose 86 mg/dL (74-106); Lipase 83 U/L (73-393); Potassium 3.9 mmol/L (3.5-5.1); Protein, Total 7.1 g/dL (6.4-8.2); Sodium Level 141 mmol/L (136-145)
[2018-12-04 21:56] LABS: Pregnancy, Serum, hCG Quali. NEGATIVE Negative (0-9 Nonpreg)
--- NOTE | 2018-12-04 23:01 | ED.DEP ---
ED Disposition - Plan for ED Patient: Instructions: ED Kidney Infec Female Prescriptions: Ciprofloxacin [Cipro] 500 mg PO BID #14 tablet Referrals: Sd Osman [Primary Care Provider] -
[2018-12-04] MEDS: Ciprofloxacin 500 MG Tablet PO (23:10)
[2018-12-04 23:16] VITALS: BP 112/74; PULSE 89; RESP 16; O2SAT 100
== END 2018-12-04 23:18 | disposition home or self-care (01) ==
LOC: ED 20:39
PROVIDERS: Emergency Provider Emergency Medicine; Family Provider Family Medicine; PCP Family Medicine
DX: N12 Tubulo-interstitial nephritis, not specified as acute or chronic (principal); Z72.0 Tobacco use
CPT/HCPCS: 74176; 80048; 80076; 81001; 83690; 84703; 85025; 85379; 96361; 96374; 96375; 99283; J7030; A4216; J2405

== ENCOUNTER → 2018-12-30 | Outpatient (CLI) | payer BC, MEDICAID, SELFPAY ==
[2018-12-04 19:26] VITALS: BMI 24.7
[2018-12-30 16:45] LABS: Vitamin D,25 Hydroxy 19.4 ng/mL (29.95-100.01)
== END | disposition home or self-care (01) ==
LOC: LABSPEC 14:59
PROVIDERS: Visit Provider Obstetrics & Gynecology
DX: E55.9 Vitamin D deficiency, unspecified (principal)
CPT/HCPCS: 36415; 82306

== ENCOUNTER → 2019-03-29 | Outpatient (CLI) | payer BC, MEDICAID, SELFPAY | END | disposition home or self-care (01) | LOC: RAD.FUTURE 14:39 | PROVIDERS: Family Provider Family Medicine; PCP Family Medicine; Referring Provider Family Medicine; Visit Provider Family Medicine | DX: J40 Bronchitis, not specified as acute or chronic (principal) ==

== ENCOUNTER 2019-04-18 16:22 | Emergency (ER) | payer BC, MEDICAID, SELFPAY ==
[2019-04-18 16:24] VITALS: BP 117/66; PULSE 82; RESP 18; TEMP 36.2; O2SAT 97; BMI 25.4
[2019-04-18] MEDS: Diphth,Pertuss(Acell),Tet Vac 0.5 ML Vial IM (16:47)
[2019-04-18] MEDS: Tetracaine 0.5% Ophthalmic Bottle 1 DRP LEFT EYE (16:51)
[2019-04-18] MEDS: Fluorescein 1 MG STRIP 1 STRIP LEFT EYE (16:52)
--- NOTE | 2019-04-18 16:58 | ED.DCSUM_ITS ---
- ER Visit Summary Date of Service: 04/18/19 Chief Complaint: Snakebite History of Present Illness: The patient is a 23 F who was bit by her pet python earlier today near her left eye. Unsure of her tetanus status. Physical Examination: Patient has bruising inferior to her left eye as well as some superficial abrasions. She has 1 superficial abrasion overlying her lateral lower lid. Extraocular motion normal. Pupils normal. Fluorescein exam normal. Visual leon intact. Test Results: None indicated Emergency Department Course and Treatment: Tetanus updated. Eye was examined and not injured. We will treat with antibiotic prophylaxis, Cipro and Clinda. Follow-up with ophthalmology. Her abrasions do not require suturing or further care. Continue soap and water at home. Treatment Plan: Above Disposition: Discharge. Impression: 1. Snakebite to left face . This note was generated with [employer] dictation software. It may contain incorrect words, spelling, and punctuation that were not noted in review of the chart prior to signing ED Disposition - Plan for ED Patient: Referrals: Sd Osman [Primary Care Provider] -
--- NOTE | 2019-04-18 17:04 | ED.DEP ---
ED Disposition - Plan for ED Patient: Instructions: SNAKEBITE, Non-Poisonous Prescriptions: Ciprofloxacin [Cipro] 500 mg PO BID 5 Days #10 tab Prescription Printed Clindamycin HCl [Cleocin] 300 mg PO Q6H 5 Days #20 cap Prescription Printed Referrals: Raj Celaya MD [STAFF PHYSICIAN] -
[2019-04-18] MEDS: Ciprofloxacin 500 MG Tablet PO (17:11)
[2019-04-18] MEDS: Clindamycin HCl 150 MG Capsule 300 MG PO (17:11)
== END 2019-04-18 17:21 | disposition home or self-care (01) ==
LOC: ED 16:54
PROVIDERS: Emergency Provider Emergency Medicine; Family Provider Family Medicine; PCP Family Medicine
DX: S00.272A Other superficial bite of left eyelid and periocular area, initial encounter (principal); W59.11XA Bitten by nonvenomous snake, initial encounter; Y93.9 Activity, unspecified; Y92.9 Unspecified place or not applicable; Z72.0 Tobacco use
CPT/HCPCS: 90715; 99283

== ENCOUNTER → 2020-09-19 17:45 | Outpatient (CLI) | payer BC, MEDICAID, SELFPAY | PROVIDERS: PCP Family Medicine; Visit Provider Obstetrics & Gynecology | DX: Z03.818 Encounter for observation for suspected exposure to other biological agents ruled out (principal) | CPT/HCPCS: 87635; C9803; U0003 ==

== ENCOUNTER 2020-09-25 07:05 | Inpatient (IN) | payer BC, MEDICAID, SELFPAY ==
[2020-09-25] VITALS (43 sets, daily range): BP systolic 85–147; BP diastolic 45–98; PULSE 60–120; RESP 16; TEMP 36.3–37.2; O2SAT 85–100; BMI 30.9
--- NOTE | 2020-09-25 07:41 | HP.PCM_ITS ---
- Problem List (1) 40 weeks gestation of Status: Acute (2) Multiparity Status: Acute (3) Elective induction of labor planned Status: Acute (4) Rh negative state in antepartum period Status: Acute (5) Anemia affecting Status: Acute (6) Marijuana use Status: Acute (7) History of Chiari malformation Status: Acute (8) Positive GBS test Status: Acute History Date of Admission: 09/25/20 Final CARLOS: 09/24/20 Gestational age: 40 Weeks and 1 Days History of this : This is a 24 year-old, G 2, P 1, at 40 weeks gestational age who presents for elective IOL. Has had ctx's all weekend. No vb, lof. +FM. Surgical History: Surgical History (Last Updated 09/25/20 @ 07:[address] Dennise Velásquez, DO) History of loop electrical excision procedure (LEEP) Z98.890 Allergies cefaclor [From Ceclor] Allergy (Verified 09/25/20 07:23) Hives Home Medications: Home Medications Vits [Prenatabs FA ] 1 tab PO DAILY 09/25/20 Smoking Status: Current every day smoker Alcohol: None Substance Use Type: Marijuana - positive UDS early in Number of Fetus(es): 1 NST - FHR Rate Baby A Baseline: 140 Variability:: Moderate Accelerations:: None Decelerations:: None FHR Category:: Category I Uterine Activity:: Occasional ctx's History Past Pregnancies: Past Pregnancies Delivery Date Name GA/ Weeks Outcome Route Wt Infant Sex Labor Length Anesthesia Delivery Location Provider FOB Labs: See [facility] record Expected Delivery Method: Spontaneous Vaginal Physical Exam Vitals: Vital Signs Pulse BP 120 H 111/72 09/25/20 07:28 09/25/20 07:28 General: Alert, No apparent distress HEENT: Atraumatic Abdomen: Soft, Non Tender, Gravid Extremities:: No edema Neurological: Neuro grossly intact GRAVITY FLOW IRRIGATOR: Normal external genitalia Estimated gestational size: Appropriate for gestational size Presentation: Cephalic Assessment/Plan All Active Problems Chronic pelvic pain in female (Acute) SCAR II (cervical intraepithelial neoplasia II) (Acute) 40 weeks gestation of (Acute) Multiparity (Acute) Elective induction of labor planned (Acute) Rh negative state in antepartum period (Acute) Anemia affecting (Acute) Marijuana use (Acute) History of Chiari malformation (Acute) Positive GBS test (Acute) This is a 24 year-old, G 2, P 1, at 40 weeks gestational age admitted for elec tive IOL. - Admit for routine intrapartum care - Ancef for GBS positive - UDS on admission for prior marijuana use - Epidural PRN. H/o Chiari malformation - pt was reviewed with neurosurgery and anesthesia during the and cleared to have epidural if she desires - Jefferson and pitocin - EFW anticipated to be < 4500 g and pelvis adequate. Expected
[2020-09-25] MEDS: Lactated Ringers 1,000 ML 50 ML IV (07:45)
[2020-09-25] MEDS: 0.9% Normal Saline Single 100 ML IV.SOLN. INTRA-UTER (08:03)
[2020-09-25 08:04] LABS: Absolute Lymphocyte Count 2.24 X10^3/uL (0.83-4.51); Basophil# 0.05 X10^3/uL; Basophil% 0.5 % (0-1); Eosinophil# 0.11 X10^3/uL; Eosinophils% 1.1 % (0-5); Hematocrit 35.5 % (37-47); Hemoglobin 11.6 g/dL (12.0-15.0); Lymphocyte # 2.24 X10^3/ul (4.0); Lymphocyte % 23.4 % (19-41); Mean Corp Hgb Conc 32.7 g/dL (32-36); Mean Corpuscular Hgb 31.5 pg (27.0-32.0); Mean Corpuscular Volume 96.5 fL (81-99); Mean Platelet Vol. 8.9 fl (6.2-12.0); Monocyte# 0.91 X10^3/uL; Monocyte% 9.5 % (0-10); NRBC Flagged by Analyzer 0 % (0-5); Neutrophil # 5.95 X10^3/uL (2.7-7.7); Neutrophil % 62.3 % (47-70); Platelet Count 215 K/mm3 (150-450); RBC Distribution Width CV 14.3 % (11.6-14.6); Red Blood Count 3.68 M/mm3 (4.2-5.4); White Blood Count 9.6 K/mm3 (4.4-11.0)
[2020-09-25 08:18] LABS: Amphetamine Urine VISTA NEGATIVE (<1000 ng/mL); Barbiturate Urine VISTA NEGATIVE (< 200 ng/mL); Benzodiazepine Urine VISTA NEGATIVE (< 200 ng/mL); Cocaine Urine VISTA NEGATIVE (< 300 ng/mL); Ecstacy Urine VISTA NEGATIVE (< 500 ng/mL); Methadone Urine VISTA NEGATIVE (< 300 ng/mL); PCP Urine VISTA NEGATIVE (< 25 ng/mL); THC Urine VISTA NEGATIVE (< 50 ng/mL); Vista UDS pH Range 6
[2020-09-25] MEDS: Oxytocin 30 units/NS 500 ml 30 UNITS/500 ML IV.SOLN IV (08:30)
[2020-09-25] MEDS: Cefazolin 2 GM in 0.9% Normal Saline 100 ML IV (10:42)
--- NOTE | 2020-09-25 12:31 | PCM.PN.BLA ---
Progress Note Cvx /-2, head well applied. AROM performed in usual fashion for lightly stained meconium fluid. Will recheck in [address] unchanged [address] IUPC. Cont pitocin. Pt desires epidural for pain control. Brought paperwork from last neurosurgery visit, prior imaging, and message from Dr. Booker stating the patient is okay for an epidural from his standpoint for anesthesia to review. STROKE Vital Signs/Narrative: Vital Signs Temp Pulse BP Pulse Ox 09/25/20 10:54 62 114/53 L 97 09/25/20 10:53 98.2 F 09/25/20 09:55 97.5 F L 09/25/20 09:52 71 112/64 09/25/20 08:55 93 107/62
[2020-09-25] MEDS: Lactated Ringers 500 ML 999 ML IV ×2 (12:50→14:51)
[2020-09-25] MEDS: fentaNYL-bupivacaine (epidural) 100 ML BAG EPIDURAL (14:05)
[2020-09-25] MEDS: Lactated Ringers 1,000 ML 200 ML IV (15:06)
[2020-09-25] MEDS: Oxytocin 30 units/NS 500 ml 30 UNITS/500 ML IV.SOLN 334 UNITS IV (17:21)
[2020-09-25] MEDS: Methylergonovine 0.2 MG/ML Ampul IM (17:35)
[2020-09-25] MEDS: miSOPROStol 200 MCG Tablet 1000 MCG RECTAL (17:37)
--- NOTE | 2020-09-25 18:20 | PCM.OPRPT ---
Problem List (1) 40 weeks gestation of Status: Acute (2) Multiparity Status: Acute (3) Elective induction of labor planned Status: Acute (4) Rh negative state in antepartum period Status: Acute (5) Anemia affecting Status: Acute (6) Marijuana use Status: Acute (7) History of Chiari malformation Status: Acute (8) Positive GBS test Status: Acute (9) Vaginal delivery Status: Acute Report of Operation Date of Procedure: 09/25/20 Pre-Operative Diagnosis: 40 week gestation, multiparous, elective IOL Post-Operative Diagnosis: As above, vaginal delivery Surgery/Procedure Performed:: Description of Surgical Findings:: Infant in right occiput anterior position. Normal-appearing placenta with three-vessel cord. Normal uterine cavity. Type of Anesthesia:: Epidural Special Medications: Methergine and Cytotec given Specimen's removed: Placenta Drains: Jefferson Estimated Blood Loss (mL): 350 Description of Procedure: The patient was complete and pushing. Head of delivered in right occiput anterior position over an intact perineum. Anterior shoulder was delivered without any force or delay, followed by the posterior shoulder and body of the . A viable female infant was delivered atraumatically and placed on maternal abdomen. The cord was clamped and cut after 60 sec delay by the father of the baby. Cord blood was obtained. Placenta was delivered with fundal massage and noted to be normal-appearing and intact with a three-vessel cord. The uterus was explored. Pitocin was started. A left vaginal wall laceration was repaired with 3-0 Vicryl in usual fashion. The lower uterine segment continued to be boggy with brisk bleeding. The uterus was explored again with no retained products. Methergine x1 was given and rectal Cytotec was placed. Fundus is was then firm and bleeding hemostatic. Sponge counts were correct. Vaginal sweep was performed. Grafts/Implants Used: None - Complications None - Admit VTE Documentation VTE Present on Admission: No VTE Mechan Device Prophylaxis: None VTE Pharm Prophylaxis ordered?: No Vaginal Delivery Maternal Presentation: Elective Induction Method of Induction: Pitocin, Jefferson Bulb, Amniotomy Amniotic Fluid Description: Lightly stained meconium Final CARLOS: 09/24/20 Gestational age: 40 Weeks and 1 Days Surgery/ Procedure Performed: Spontaneous Vaginal Delivery Type of Anesthesia: Epidural Presentation: Vertex Placental Delivery Description: Expressed Cord Vessel Description: 3 Vessels Cord Entanglement: None Drain: Jefferson to straight drain Infant A gender: Female (1 minute): 8 (5 minute): 9 Episiotomy Description: None Laceration: Vaginal Extension/lac Medications given after delivery: IV Pitocin, IM Methergin, - - Cytotec Complications: None
--- NOTE | 2020-09-25 18:26 | PCM.PN.BLA ---
Progress Note Pt signed LARC form in office for Nexplanon placement prior to discharge. She reports mood changes with prior Nexplanon, and she does not think she wants the Nexplanon placed prior to discharge. Discussed option for Mirena IUD at 6 weeks and she will consider. STROKE Vital Signs/Narrative: Vital Signs Temp Pulse BP Pulse Ox 09/25/20 18:20 90 109/62 09/25/20 18:05 80 101/64 09/25/20 17:50 99.0 F 81 147/58 H 09/25/20 16:33 86 97 09/25/20 16:32 85 95/53 L 09/25/20 16:31 98.2 F 09/25/20 14:54 65 100/56 L 09/25/20 14:53 97.5 F L 09/25/20 14:29 60 108/55 L 09/25/20 14:28 100
[2020-09-26 04:30] VITALS: BP 93/36; PULSE 62; RESP 16; TEMP 36.3
[2020-09-26 08:00] VITALS: BP 90/47; PULSE 66; RESP 20; TEMP 36.1; O2SAT 97
--- NOTE | 2020-09-26 08:22 | PCM.PN.OB ---
Patient Problems: Active and Suspected Problems 40 weeks gestation of (Acute) Multiparity (Acute) Elective induction of labor planned (Acute) Rh negative state in antepartum period (Acute) Anemia affecting (Acute) Marijuana use (Acute) History of Chiari malformation (Acute) Positive GBS test (Acute) Vaginal delivery (Acute) Subjective: Patient seen at bedside, doing well. Patient reports good pain control. Mild lochia. Breast-feeding well. Patient ready for DC home today. - Physical Exam Vitals/I&O's: Vital Signs Temp Pulse Resp BP Pulse Ox 97.3 F L 62 16 93/36 L 97 09/26/20 04:30 09/26/20 04:30 09/26/20 04:30 09/26/20 04:30 09/25/20 23:34 Oxygen Delivery Method Room Air Weight: 76.8 kg Body Mass Index (BMI) 30.9 Intake and Output for Last 24 Hours 09/24/20 09/25/20 09/26/20 23:59 23:59 23:59 Intake Total 2701.62 / 2701.62 Output Total 1500 / 1500 400 / 400 Balance 1201.62 / 1201.62 -400 / -400 General: Alert, Oriented x3 Abdomen: Soft, Non Tender, Non-Distended, - - fundus firm Extremities: Capillary Refill Less than 3 Seconds Laboratory Results 09/25/20 07:45: Blood Type O NEGATIVE, Antibody Screen TNP 09/25/20 07:45: Antibody Screen NEGATIVE 09/25/20 19:25: Screen NEGATIVE, Baby's Blood Type O POSITIVE, Baby's SAFIA NEGATIVE Current Medications Acetaminophen (Acetaminophen 500 Mg Tablet) 1,000 mg PO Q8H PRN PRN PRN Reason: Pain Score 1-3 Bisacodyl (Bisacodyl 10 Mg Suppository) 10 mg RECTAL UD PRN PRN Reason: If no BM Dibucaine (Dibucaine 30 Gm Tube) 1 applic TOPICAL TID PRN PRN; Protocol PRN Reason: Discomfort Hydrocortisone (Hydrocortisone 2.5% Crm) 1 applic TOPICAL TID PRN PRN; Protocol PRN Reason: Discomfort Ibuprofen (Ibuprofen 600 Mg Tablet) 600 mg PO Q6H PRN PRN PRN Reason: Pain Score 1-3 Methylergonovine Maleate (Methylergonovine 0.2 Mg/Ml Ampul) 0.2 mg IM X1 PRN PRN Reason: Excess bleeding/uterine atony Last Admin: 09/25/20 17:35 Dose: 0.2 mg Documented by: Ondansetron HCl (Ondansetron 4 Mg/2 Ml Vial) 4 mg IV Q4H PRN PRN PRN Reason: Nausea Senna/Docusate Sodium (Senna/Docusate Sodium 1 Tablet) 1 - 2 tablet PO DAILY PRN PRN PRN Reason: Constipation Simethicone (Simethicone 80 Mg Tablet) 80 mg PO PCHS PRN PRN Reason: Indigestion/Stomach pain Sodium Chloride (0.9% Saline Lock 10 Ml Syringe) 5 - 15 ml IV UD PRN PRN Reason: SALINE FLUSH Medical Necessity - Tobacco Use Smoking Status: Light Smoker (<10/day) Assessment/Plan All Active Problems Chronic pelvic pain in female (Acute) SCAR II (cervical intraepithelial neoplasia II) (Acute) 40 weeks gestation of (Acute) Multiparity (Acute) Elective induction of labor planned (Acute) Rh negative state in antepartum period (Acute) Anemia affecting (Acute) Marijuana use (Acute) History of Chiari malformation (Acute) Positive GBS test (Acute) Vaginal delivery (Acute) PPD#1, doing well routine care pain mgmt ambulation dc home
--- NOTE | 2020-09-26 08:24 | DCINST_ITS ---
Discharge Diet: No Restrictions Discharge Activity: Return to Normal Activity, May not drive while taking narcotic pain medications., May Shower May resume sexual activity in: 4-6 weeks Additional Activity Instructions:: Nothing in the vagina for 4-6 weeks. You may return to work/school in 6 weeks. Call your doctor if your incision/area has: Continuous Slow Oozing, Sudden Increased Bleeding, Increased Pain/ Swelling, Increased Redness, Foul Smelling Discharge Additional Instructions: If you experience any of the following, contact your healthcare provider. * Bleeding that soaks a pad every hour for 2 hours * Fever 100.4 or higher * Unrelieved incision or abdominal pain * Swelling, redness, discharge or bleeding from your incision or episiotomy site * Your incision begins to separate * Problems urinating (including inability to urinate or burning while urinating). * Visual changes * Severe headache * Flu-like symptoms * Pain or redness in one of both of your breasts * Pain, warmth, tenderness or swelling in your legs, especially the calf area * Frequent nausea and vomiting * Symptoms of depression or anxiety If you experience any of the following, call 911 or go to the nearest Emergency Room. * Chest pain * Problems breathing * Seizure activity * Partial or complete paralysis of a body part, slurred speech, weakness or drooping of the face, or a sudden inability to walk or hold your balance Allergies/Adverse Reactions: Allergies cefaclor [From Ceclor] Allergy (Verified 09/25/20 07:23) Hives Medications to take at Discharge Diphenhydramine HCl [Unisom] 50 mg PO PRN PRN 09/25/20 Vits [Prenatabs FA ] 1 tab PO DAILY 09/25/20 Ibuprofen [Motrin] 600 mg PO Q6H PRN #30 tab 09/26/20 The following prescriptions were given: Ibuprofen [Motrin] 600 mg PO Q6H PRN #30 tab Transmission Status: Pending to [id number] When: Call to make an appointment with your doctor in 6 weeks. If you had elevated Blood Pressure or 4th degree laceration you will need to be seen in 2 weeks. Primary Care Physician: Sd Osman DO [Primary Care Provider] - Test Results: Test results from this visit will be discussed in further detail at your follow- up appointment, if applicable.
[2020-09-26] MEDS: Ibuprofen 600 MG Tablet PO (08:31)
[2020-09-26 12:00] VITALS: BP 92/56; PULSE 68; RESP 16; TEMP 36.1; O2SAT 97
[2020-09-26] MEDS: Acetaminophen 500 MG Tablet 1000 MG PO (12:11)
[2020-09-26 12:46] VITALS: BP 115/74; PULSE 83; RESP 15; TEMP 36.3; O2SAT 97
--- NOTE | 2020-09-26 15:00 | CASEMGMT ---
Social Work Assessment Labor and Delivery Unit Patient Address:[address] [place] [address] [address], [place] [address] Phone number: [phone] Date of Referral: 09.26.2020 Time of Referral: [phone] Referred By: verbal notification by nursing staff Date of Intervention: 09.26.2020 Time of Intervention: 1500 Reason for Referral: maternal history of depression, anxiety, and marijuana use (early reported) History obtained from: Medical records and mother of baby (SADIA) Radha Robles Household composition: SADIA reports to live with significant other Uriel Soto and their older child. Home situation is reported as safe and adequate. Patient's parent/guardian status: SADIA is a 24 year old single female. The biological father is reported to be a man named Marco Burns, age 26. SADIA is not involved with the FOB, reporting that SADIA has been with Uriel since the age of 18, with the exception of a break which resulted in conception of Ivonne. SADIA reports the FOB is not going to be involved, and that Uriel plans to raise Ivonne as his own. SADIA's minor children include: Sandra Soto, born 11.12.2014, father is Uriel Soto [place] is to be named, Ivonne Soto (born 09.25.2020), biological father reported as Marco Burns Medical History: SADIA is G2, P 1 to 2 after delivering baby girl Ivonne. SADIA has history of POTS, Chiari malformation, and during this iron infusions. care started at 10 weeks gestation. Coryell was 7 pounds 13 ounces at . Apgars 8 and 9 at 1 and 5 minutes of life. Educational Status: SADIA completed through the 11th grade. No issues with reading, writing, or learning comprehension reported. 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 Uriel also works. No reported issues with finances. Supplies: SADIA reports to have needed supplies including safe sleep space, car seat, clothing, diapers, wipes, and is planning to breast feed. Childcare/Caregiver(s): MOB will be primary caregiver. SADIA's mom can help as well. Transportation: No issues reported. Programs/Agencies Involved: S for medical. MOB accepted information on resourcess available, but declined any additional referrals. Children Services/Legal Issues: MOB denies any legal issues, and denies any past or present childrens services involvement for self. Behavioral Health Issues: Mental Health History: MOB had history of depression and anxiety since about 2014, MOB has history of medication of Paxil. Denies any thoughts, plans, intent or attempts at suicide. Reports anxiety is more prominent than anxiety. MOB reports to feel her creative outlet with work assists with management of anxiety. Substance Use History: MOB reports first trimester use of marijuana, and stopping when finding out about . MOB denies continued use during . Denies history of other illicit drugs use and denies alcohol use. Does smoke tobacco. Family History: SADIA reports her sister has history of methamphetamine use, and has lost custody of all of her children due to this. Drug Screens: Maternal drug screen positive on 02.14.2020 for marijuana. Drug screen at delivery is negative on 09.25.2020. Baby's urine is also negative. Meconium is pending. Family/Social Stressors: None reported. Support Systems: Uriel, MOB's mother, and and aunt are identified as supportive and helpful. Depression/Shaken Baby/Safe Sleeping: Information given and discussed on all subjects. ASSESSMENT: Met with MOB in room. MOB holding baby during social work visit, attentive and gentle. MOB pleasant, normal eye contact, bright affect. MOB reports to feel a connection to the baby. No voiced on concerns by nursing staff regarding mother/child interactions or bonding. Reports intention to abstain from future Marijuana use and reports understanding that children services often gets involved due to substance use. MOB reports to have adequate support. Reports willingness to talk to support system should depression/anxiety arise. MOB accepted community resource information for home going, but decline referrals such as [facility] or [facility]. At this time, due to drug screen being in first trimester and both mom and baby negative at delivery, will wait for meconium drug screen results before determining need for additional referrals. Safe Plan of Care for infant related to substance use: Abstain from marijuana use, not breast feed while using, and if uses again in the future to assure that someone sober is watching the baby/not use around the baby. PLAN: MOB and baby to discharge home. Community resource information given. Will monitor for meconism drug screen results and make additional reports as indicated. No other services requested or indicated. -NICOLE Reagan MSW *Information documented in this assessment generated with [employer]*
[2020-09-26 15:31] VITALS: BP 95/42; PULSE 62; RESP 18; TEMP 36.2; O2SAT 97
== END 2020-09-26 19:25 | disposition home or self-care (01) | DRG 807 ==
PROVIDERS: Admitting Provider Obstetrics & Gynecology; PCP Family Medicine; Referring Provider Obstetrics & Gynecology; Visit Provider Obstetrics & Gynecology
DX: O99.824 Streptococcus B carrier state complicating childbirth (principal); Z37.0 Single live birth; Z3A.40 40 weeks gestation of pregnancy; O99.334 Smoking (tobacco) complicating childbirth; O26.893 Other specified pregnancy related conditions, third trimester; O77.0 Labor and delivery complicated by meconium in amniotic fluid; O71.4 Obstetric high vaginal laceration alone; F17.200 Nicotine dependence, unspecified, uncomplicated
CPT/HCPCS: 59025; 59050; 80307; 85025; 85461; 86850; 86900; 86901; 90384; 99218; J7120; G0378; J2790

== ENCOUNTER 2021-02-28 20:31 | Emergency (ER) | payer BC, MEDICAID, SELFPAY ==
[2020-09-25 07:22] VITALS: BMI 30.9
[2021-02-28 20:32] VITALS: BP 123/72; PULSE 76; RESP 15; TEMP 34.9; O2SAT 98; BMI 27.4
--- NOTE | 2021-02-28 20:52 | RAD_ITS ---
HISTORY: trauma EXAMINATION/TECHNIQUE: XR Foot Min 3 Views: COMPARISON: None FINDINGS: BONES/JOINTS: Displaced and rotated avulsion fracture from the medial articular surface of the second proximal phalanx at the MTP joint. Preservation of the joint spaces. SOFT TISSUES: No soft tissue swelling or gas. No radiopaque foreign body. RAD/Foot min 3 Views IMPRESSION: Displaced intra-articular avulsion fracture at the medial aspect of the second proximal phalanx. at 2121 Reported and signed by: Davonte Wyman MD Electronically Signed: Davonte Wyman MD at 21:20 EDT Tel , Service support ,
--- NOTE | 2021-02-28 20:57 | ED.VIS.LOWEX ---
HPI History of Present Illness Chief Complaint: Lower Extremity Injury Narrative Narrative: Patient presents with right foot pain after wrestling, pain is distal foot and proximal third and fourth toes. No other injury. PFSH PFSH Home Medications diphenhydramine HCl 50 mg PO PRN PRN 09/25/20 [History Last Taken 09/20/20 22:00 50 mg] vit,[id number] 1 tab PO DAILY 09/25/20 [History Last Taken 09/24/20 20:00 1 tab] ibuprofen 600 mg PO Q6H PRN #30 tab 09/26/20 [Rx Last Taken Unknown] Allergy/AdvReac Type Severity Reaction Status Date / Time cefaclor [From [facility]] Allergy Hives Verified 02/28/21 20:34 Surgical History (Updated 09/25/20 @ 07:[address] Dennise Velásquez, DO) History of loop electrical excision procedure (LEEP) Social History Smoking Status: Light Smoker (<10/day) ROS ROS ED ROS Narrative Past medical history: History of Chiari malformation Medications: Reviewed Social history: Noncontributory Review of systems: Musculoskeletal: Foot contusion as in HPI Skin: No abrasions or lacerations Neurological: No weakness or paresthesias Hematologic: No easy bleeding or easy bruising EXAM Physical Exam Narrative Exam Narrative: Physical exam General: Patient does not appear in significant distress . Head: Normocephalic, Atraumatic Neck: No C-spine tenderness Cardiovascular: Normal distal pulses Extremities: Right distal foot shows some tenderness over the distal third and fourth metatarsal region and proximal third and fourth phalanx regions. Normal flexion and extension Skin: No abrasions, no lacerations Neurological: Normal strength and sensation Const Vital Signs: 02/28/21 20:32 Temperature 94.9 F L Temperature Source Temporal Pulse Rate 76 Respiratory Rate 15 Blood Pressure 123/72 H Blood Pressure Mean 89 Pulse Ox 98 Oxygen Delivery Method Room Air Discharge Plan Triage Chief Complaint: Lower Extremity Injury ED Provider: Sd Mosley Dx/Rx/DC Orders Prescriptions: No Action vit,[id number] 1 TABLET tablet 1 tab PO DAILY RF: 0 diphenhydramine HCl 50 MG capsule 50 mg PO PRN PRN (Reason: sleep aid) RF: 0 ibuprofen 600 MG tablet 600 mg PO Q6H PRN Qty: 30 RF: 0 Primary Care Provider: Sd Osman
== END 2021-02-28 21:30 | disposition home or self-care (01) ==
LOC: ED 21:22
PROVIDERS: Emergency Provider Emergency Medicine; PCP Family Medicine
DX: M79.671 Pain in right foot (principal); X58.XXXA Exposure to other specified factors, initial encounter; Y93.72 Activity, wrestling; Y92.9 Unspecified place or not applicable; F17.200 Nicotine dependence, unspecified, uncomplicated
CPT/HCPCS: 73630; 99282

== ENCOUNTER 2021-05-18 23:09 | Emergency (ER) | payer BC, MEDICAID, SELFPAY ==
[2021-05-18 23:10] VITALS: BP 112/67; PULSE 72; RESP 18; TEMP 36.8; O2SAT 100; BMI 27.4
--- NOTE | 2021-05-18 23:27 | EX.ED.VIS.HA ---
HPI History of Present Illness Chief Complaint: Headache Narrative Narrative: Headache that is felt like a migraine has been present for 1 week. Today for the past approximately 8 hours she has had intermittent numbness entire right side of her face, right arm, right leg. This is never happened with her migraines before, she has been having migraines for 5 or 6 years. She has a history of Arnold-Chiari malformation. She has never required any neurosurgery. There is no history personally or in the family of cerebral aneurysms that she knows of or other masses. She denies any recent injury or illness. [facility] Medical History POTS (postural orthostatic tachycardia syndrome) Home Medications diphenhydramine HCl 50 mg PO PRN PRN 09/25/20 [History Last Taken 09/20/20 22:00 50 mg] vit,[id number] 1 tab PO DAILY 09/25/20 [History Last Taken 09/24/20 20:00 1 tab] ibuprofen 600 mg PO Q6H PRN #30 tab 09/26/20 [Rx Last Taken Unknown] Allergy/AdvReac Type Severity Reaction Status Date / Time [facility] Allergy Hives Verified 05/18/21 23:12 Surgical History History of loop electrical excision procedure (LEEP) Social History Smoking Status: Current every day smoker tobacco type: cigarettes ROS ROS ED Constitutional Constitutional ED: Denies chills or fever(s) Eyes Eyes: Reports as per HPI, blurry vision bilateral and diplopia ENT ENT ED: Denies ear pain or sore throat Cardiovascular Cardiovascular: Denies chest pain or palpitations Respiratory/Chest Respiratory/Chest: Denies cough or dyspnea Gastrointestinal Gastrointestinal: Reports nausea; Denies abdominal pain, diarrhea or vomiting Genitourinary Genitourinary ED: Denies dysuria or urinary frequency Musculoskeletal Musculoskeletal: Denies back pain or myalgias Integumentary Denies abscess or rash Neurologic Neurologic: Reports as per HPI, headache(s) and paresthesias RUE and RLE (and entire R face); Denies abnormal speech, confusion, disequilibrium, loss of vision or weakness EXAM Physical Exam Const Vital Signs: 05/18/21 23:10 Temperature 98.2 F Temperature Source Temporal Pulse Rate 72 Respiratory Rate 18 Blood Pressure 112/67 Blood Pressure Mean 82 Pulse Ox 100 Oxygen Delivery Method Room Air Positive well nourished, well developed and oriented x3 General Appearance ED: well developed and NAD; Negative for ill appearing HEENT Reports normocephalic and moist mucous membranes atraumatic Eyes PERRL, EOMs intact bilaterally and conjunctivae normal Eyes Narrative: photophobia mild Neck no lymphadenopathy, supple and no meningeal signs Resp normal respiratory effort and clear to auscultation bilaterally GI non-tender and non-distended Palpation: soft Extremity normal to inspection and full ROM Neuro oriented x3 and CN's II-XII intact bilaterally Neuro Narrative: Intact sensation but decreased right face, right upper extremity, right lower extremity Sensorium / Orientation: awake and alert Meningeal Signs: no meningeal signs Speech: speech normal Gait (Neuro): normal gait Motor Exam: strength 5/5 throughout Psych mental status grossly normal Skin Lesions: no lesions Rashes: no rashes MDM MDM MDM Narrative Medical decision making narrative: Chemistries were obtained to ensure normal renal function, followed by CT/CT angiography of the head and neck. This was all normal. Patient was given IV Toradol, Reglan. On reevaluation she feels much better, her headache and numbness are both resolved, and she did not have any akathisia. Discharged in stable condition. Lab Data Attestation: I reviewed the patient's lab results. Labs: Laboratory Results - last 24 hr 05/18/21 23:35 Sodium 137 Potassium 4.0 Chloride 110 H Carbon Dioxide 24.0 Anion Gap 3 L BUN 8 Creatinine 0.81 Estim Creat Clear Calc 83.97 Est GFR (MDRD) Af Amer 110 Est GFR (MDRD) Non-Af 91 BUN/Creatinine Ratio 9.9 L Glucose 96 Calcium 9.3 Radiography Diagnostic Testing: Radiology Impression Head/Neck CTA 05/19/21 00:07 IMPRESSION: Negative CTA carotid and CTA brain. ASSESSMENT: NEGATIVE report - No abnormal findings. Electronically Signed: Douglas Villafana MD at 1:21 EDT Tel , Service support , Discharge Plan Triage Chief Complaint: Headache ED Provider: Pancho oFng Dx/Rx/DC Orders Clinical Impression: Migraine headache, History of Chiari malformation, Numbness on right side Instructions: ED, Migraine (Classical) Prescriptions: No Action vit,[id number] 1 TABLET tablet 1 tab PO DAILY RF: 0 diphenhydramine HCl 50 MG capsule 50 mg PO PRN PRN (Reason: sleep aid) RF: 0 ibuprofen 600 MG tablet 600 mg PO Q6H PRN Qty: 30 RF: 0 Primary Care Provider: Sd Osman Referrals: Sd Osman DO [Primary Care Provider] - As Needed Disposition Disposition: Home, Self Care
[2021-05-18] MEDS: Ketorolac 30 MG/ML Syringe IV (23:47)
[2021-05-18] MEDS: Metoclopramide 10 MG/2 ML Vial IV (23:49)
[2021-05-18 23:55] LABS: Anion Gap 3 (5-15); BUN 8 mg/dL (7-18); BUN/Creat Ratio 9.9 RATIO (10-20); Calcium,Total 9.3 mg/dL (8.5-10.1); Chloride 110 mmol/L (98-107); Creatinine, Serum 0.81 mg/dL (0.55-1.02); EST Glomerular Filtration Rate 91 mL/min (>60); Est Glom Filt Rate - Afr Amer 110 mL/min (>60); Estimated Creatinine Clearance 83.97 ml/min; Glucose 96 mg/dL (74-106); Sodium Level 137 mmol/L (136-145)
--- NOTE | 2021-05-19 00:07 | CT_ITS ---
EXAM: CT Angiography Head and Neck With Intravenous Contrast CLINICAL INDICATION: 25 years old, Female; headache w/ R-sided numbness, episode diplopia TECHNIQUE: [place] [facility] [place]/head and neck CT angiography protocol performed with intravenous contrast. This CT exam was performed using one or more of the following dose reduction techniques: automated exposure control, adjustment of the mA and/or kV according to patient size, and/or use of iterative reconstruction technique. This report was created using Qui.lt report generation technology. MIP reconstructed images were created and reviewed. CONTRAST: IV 100mL Isovue-300 COMPARISON: None. FINDINGS: HEAD: Right anterior cerebral artery: Unremarkable. No significant stenosis at the visualized segments. Anterior communicating artery is present. No aneurysm. Right middle cerebral artery: Unremarkable. No significant stenosis at the visualized segments. No aneurysm. Right posterior cerebral artery: Unremarkable. No occlusion or significant stenosis. No aneurysm. Left anterior cerebral artery: Unremarkable. No significant stenosis at the visualized segments. No aneurysm. Left middle cerebral artery: Unremarkable. No significant stenosis at the visualized segments. No aneurysm. Left posterior cerebral artery: Unremarkable. No occlusion or significant stenosis. No aneurysm. Basilar artery: Unremarkable. No significant stenosis. No aneurysm. Great vessels of aortic arch: Unremarkable. Normal anatomy, patent. Other vasculature: No vascular malformation. NECK: Right common carotid artery: Unremarkable. No significant stenosis. No dissection or occlusion. Right internal carotid artery: Unremarkable. No significant stenosis. No dissection or occlusion. Right external carotid artery: Unremarkable. No occlusion. Right vertebral artery: Unremarkable. No significant stenosis. No dissection or occlusion. Left common carotid artery: Unremarkable. No significant stenosis. No dissection or occlusion. Left internal carotid artery: Unremarkable. No significant stenosis. No dissection or occlusion. Left external carotid artery: Unremarkable. No occlusion. Left vertebral artery: Unremarkable. No significant stenosis. No dissection or occlusion. Lung apices: Unremarkable as visualized. Soft tissues: Unremarkable. CAROTID STENOSIS REFERENCE USING NASCET CRITERIA: % ICA stenosis = (1 - narrowest ICA diameter/diameter of distal cervical ICA) x 100. Mild - <50% stenosis. Moderate - 50-69% stenosis. Severe - 70-94% stenosis. Near occlusion - 95-99% stenosis. Occluded - 100% stenosis. CT/CTA Head AND Neck W/ Contrast IMPRESSION: Negative CTA carotid and CTA brain. ASSESSMENT: NEGATIVE report - No abnormal findings. Electronically Signed: Douglas Villafana MD at 1:21 EDT Tel , Service support ,
[2021-05-19 01:40] VITALS: BP 112/76; PULSE 68; RESP 16; O2SAT 99
== END 2021-05-19 01:43 | disposition home or self-care (01) ==
PROVIDERS: Emergency Provider Emergency Medicine; PCP Family Medicine
DX: G43.909 Migraine, unspecified, not intractable, without status migrainosus (principal); Q07.00 Arnold-Chiari syndrome without spina bifida or hydrocephalus; F17.210 Nicotine dependence, cigarettes, uncomplicated
CPT/HCPCS: 70496; 70498; 80048; 96374; 96375; 99283; Q9967; A4216

== ENCOUNTER 2021-09-16 13:27 | Emergency (ER) | payer MEDICAID, SELFPAY ==
[2021-09-16 13:28] VITALS: BP 128/87; PULSE 66; RESP 16; TEMP 35.8; BMI 26.5
--- NOTE | 2021-09-16 14:53 | EX.ED.DYSGE1 ---
HPI History of Present Illness Chief Complaint: Headache Detail of Chief Complaint: Headache and left upper dental pain Informant: patient Narrative Narrative: Patient presents to the emergency department chief complaint of headache similar to prior migraines. Patient states that she had history of Arnold-Chiari malformation and does get migraine headaches at times. Patient states that she has had some dental issues and has had a suspected abscess left upper tooth for about a year that is been bothering her off and on. Patient states that she is attempted calling her dentist several times and just has not gotten a call back. Patient denies any fevers or chills or sweats. She rates her headache a 10 out of 10 currently. She does complain of photophobia and loud sounds bothering her. She complains of nausea. She had no vomiting. Prior similar symptoms: Yes PFSH PFSH Medical History POTS (postural orthostatic tachycardia syndrome) Home Medications diphenhydramine HCl 50 mg PO PRN PRN 09/25/20 [History Last Taken 09/20/20 22:00 50 mg] vit,[id number] 1 tab PO DAILY 09/25/20 [History Last Taken 09/24/20 20:00 1 tab] ibuprofen 600 mg PO Q6H PRN #30 tab 09/26/20 [Rx Last Taken Unknown] amoxicillin 500 mg PO TID #30 tab 09/16/21 [Rx Last Taken Unknown] Allergy/AdvReac Type Severity Reaction Status Date / Time cefaclor [From [facility]] Allergy Hives Verified 09/16/21 13:31 Surgical History History of loop electrical excision procedure (LEEP) Social History Smoking Status: Current every day smoker tobacco type: cigarettes ROS ROS ED Constitutional Constitutional ED: Reports systems reviewed and no addt'l complaints, except as documented; Denies body ache(s), change in weight or chills Eyes Eyes: Reports other Details: Photophobia ; Denies acute decrease in peripheral vision, change in vision, double vision or loss of vision ENT ENT ED: Reports none and other Details: Dental pain ; Denies ear pain, lip swelling, loss taste/smell, neck pain, otalgia or sore throat Cardiovascular Cardiovascular: Reports none; Denies abdominal pain, chest pain with activity, leg edema, lightheadedness, palpitations, rapid heart rate or syncope Respiratory/Chest Respiratory/Chest: Reports none; Denies change in mental status, dry cough, dyspnea, hemoptysis, shortness of breath at rest or shortness of breath with exertion Gastrointestinal Gastrointestinal: Reports none and nausea; Denies abdominal pain, change in stool character, diarrhea, hematemesis, hematochezia, melena, rectal bleeding or vomiting Genitourinary Genitourinary ED: Reports none; Denies abdominal discomfort, anuria, dysuria, genital pain or polyuria Musculoskeletal Musculoskeletal: Reports none; Denies arthralgias, back pain, difficulty walking, extremity pain, muscle weakness or myalgias Integumentary Reports none; Denies abscess or rash Neurologic Neurologic: Reports none and headache(s); Denies abnormal gait, confusion, focal weakness, frequent falls, loss of vision, numbness, paresthesias, radicular pain, vertigo or weakness Psychiatric Psychiatric: Reports systems reviewed and no addt'l complaints, except as documented and none; Denies behavioral changes, confusion, difficulty concentrating, hallucinations, suicidal ideation, tactile hallucinations or visual hallucinations Endocrine Endocrinology: Denies none, cold intolerance, excessive sweating, fatigue or heat intolerance Hematologic/Lymphatic Hematologic/Lymphatic: Reports none; Denies anemia, easy bleeding or easy bruising Allergic/Immunologic Allergic/Immunologic ED: Denies as per HPI, none, lip swelling, mouth swelling, throat swelling, tongue swelling or hives EXAM Physical Exam Const Vital Signs: 09/16/21 13:28 Temperature 96.4 F L Temperature Source Temporal Pulse Rate 66 Respiratory Rate 16 Blood Pressure 128/87 H Blood Pressure Mean 100 Positive well nourished and well developed General Appearance ED: well developed and NAD HEENT Reports TM's clear and moist mucous membranes HEENT Narrative: Patient has tenderness palpation over the left upper gingiva however there is no evidence of abscess. No facial erythema or cellulitis noted. normocephalic and atraumatic; Negative for trauma or tenderness Tympanic Membrane ED: Yes TM's clear Eyes PERRL and EOMs intact bilaterally General Eye ED: Negative for pale conjunctiva or scleral icterus Neck no lymphadenopathy, supple and no JVD General: Negative for tenderness Chest Wall inspection of chest normal and palpation of chest normal Chest: Negative for tenderness Resp normal respiratory effort and clear to auscultation bilaterally Effort and Inspection: Negative for respiratory distress or pain with movement Auscultation: Negative for rhonchi, wheezes or diminished lung sounds Cardio regular rate, regular rhythm, S1 normal heart sound, S2 normal heart sound and no murmurs Peripheral Pulses: pulses 2+ throughout GI normal to inspection, nondistended, normoactive bowel sounds, soft to palpation, non-tender, non-distended and no masses Back/Spine no CVA tenderness and no thoracic nor lumbar tenderness Extremity normal to inspection General Extremety ED: Negative for edema General Extremity: Negative for edema Neuro oriented x3, CN's II-XII intact bilaterally, no sensory deficits noted and gait normal Neuro Narrative: Finger-nose and heel rowell testing within normal limits, negative Romberg, negative for drift, fundi benign Sensorium / Orientation: awake, alert, oriented to person, oriented to place and oriented to time Motor Exam: strength 5/5 throughout and strength abnormal Psych mental status grossly normal Skin no rashes or lesions noted and no wounds MDM MDM MDM Narrative Medical decision making narrative: IV line established on arrival. Patient given Reglan, Benadryl, Toradol and a liter normal same fluid bolus. Patient had resolution of her headache. Patient will be given a prescription for amoxicillin regarding her dental pain and advised to follow-up with a dentist. Patient to return if condition should worsen anyway. Discharge Plan Triage Chief Complaint: Headache ED Provider: Gregg Sabillon Dx/Rx/DC Orders Clinical Impression: Migraine, Pain, dental Instructions: ED Dental Pain, ED, Migraine (Classical) Prescriptions: New amoxicillin 500 MG tablet 500 mg PO TID Qty: 30 RF: 0 No Action vit,[id number] 1 TABLET tablet 1 tab PO DAILY RF: 0 diphenhydramine HCl 50 MG capsule 50 mg PO PRN PRN (Reason: sleep aid) RF: 0 ibuprofen 600 MG tablet 600 mg PO Q6H PRN Qty: 30 RF: 0 Primary Care Provider: Sd Osman Referrals: Sd Osman DO [Primary Care Provider] - Activity Restrictions/Additional Instructions: Follow-up with a dentist Disposition Disposition: Home, Self Care
[2021-09-16] MEDS: 0.9% Normal Saline 1,000 ML 1000 ML IV (14:59)
[2021-09-16] MEDS: Ketorolac 30 MG/ML Syringe IV (14:59)
[2021-09-16] MEDS: DiphenhydrAMINE 50 MG/ML Syringe 25 MG IV (15:00)
[2021-09-16] MEDS: Metoclopramide 10 MG/2 ML Vial IV (15:00)
[2021-09-16 15:49] VITALS: BP 121/67; PULSE 52; RESP 16; TEMP 36.7; O2SAT 99
== END 2021-09-16 15:51 | disposition home or self-care (01) ==
PROVIDERS: Emergency Provider Emergency Medicine; PCP Family Medicine; Visit Provider Emergency Medicine
DX: G43.909 Migraine, unspecified, not intractable, without status migrainosus (principal); K08.89 Other specified disorders of teeth and supporting structures; F17.210 Nicotine dependence, cigarettes, uncomplicated
CPT/HCPCS: 96361; 96374; 96375; 99283; A4216

== ENCOUNTER 2022-03-04 16:36 | Emergency (ER) | payer MEDICAID, SELFPAY ==
[2022-03-04 16:37] VITALS: BP 114/80; PULSE 80; RESP 16; TEMP 36.4; O2SAT 99; BMI 27.4
--- NOTE | 2022-03-04 17:17 | EDS_ITS ---
HPI History of Present Illness HPI Narrative: Atraumatic left hand pain Chief Complaint: Upper Extremity Injury Occured/Mechanism Mechanism/Context: No injury and No blunt trauma Onset/Context/Timing Onset: Days Context: Gradual Onset Timing: Continuous Quality of Pain: Dull and Aching Current Severity: Mild Maximum Severity: Mild Associated Symptoms Associated Symptoms: Negative for Parasthesia, Weakness or Loss of Funtion Narrative Narrative: 26-year-old female with atraumatic left hand pain. Has a history of pots and Arnold-Chiari syndrome. Patient is right-hand dominant. 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 The other day tattooed for 5 straight hours not having discomfort in the back of her left hand and wrist. Worse with movement. No fall, injury or trauma. No fever or swelling. Prior similar symptoms: No Recent Illness/Hospitalization: No PFSH PFSH Medical History POTS (postural orthostatic tachycardia syndrome) Home Medications diphenhydramine HCl 50 mg capsule 50 mg PO PRN PRN sleep aid 09/25/20 [History Last Taken 09/20/20 22:00 50 mg] vits,calcium no.78-iron fumarate-folic acid 29 mg-1 mg tablet 1 tab PO DAILY 09/25/20 [History Last Taken 09/24/20 20:00 1 tab] ibuprofen 600 mg tablet 600 mg PO Q6H PRN #30 tabs 09/26/20 [Rx Last Taken Unknown] amoxicillin 500 mg tablet 500 mg PO TID #30 tabs 09/16/21 [Rx Last Taken Unknown] Allergy/AdvReac Type Severity Reaction Status Date / Time cefaclor [From [facility]] Allergy Hives Verified 09/16/21 13:31 Surgical History History of loop electrical excision procedure (LEEP) Social History Smoking Status: Current every day smoker tobacco type: cigarettes ROS ROS ED ROS Narrative No recent illness. Review of Systems ROS Unobtainable: Denies due to encephalopathy Constitutional Constitutional ED: Denies chills Eyes Eyes: Denies blurry vision ENT ENT ED: Denies ear pain Cardiovascular Cardiovascular: Denies chest pain Respiratory/Chest Respiratory/Chest: Denies cough Gastrointestinal Gastrointestinal: Denies abdominal pain Genitourinary Genitourinary ED: Denies dysuria Musculoskeletal Musculoskeletal: Denies back pain Integumentary Denies abscess Neurologic Neurologic: Denies headache(s) Psychiatric Psychiatric: Denies anxiety Endocrine Endocrinology: Denies cold intolerance Hematologic/Lymphatic Hematologic/Lymphatic: Denies easy bleeding Allergic/Immunologic Allergic/Immunologic ED: Denies mouth swelling EXAM Physical Exam Narrative Exam Narrative: Well-appearing 26-year-old. Exam normal except dorsum of the left hand mild tenderness and also the left wrist. However has full flexion-extension. Radial and ulnar deviation. She is able to open close her hand. There is no redness or warmth. No bony deformity. Forearm and upper arm are unremarkable. Exam is consistent with a tendonitis or an overuse syndrome. Const Vital Signs: 03/04/22 16:37 Temperature 97.6 F L Temperature Source Temporal Pulse Rate 80 Respiratory Rate 16 Blood Pressure 114/80 Blood Pressure Mean 91 Pulse Ox 99 Oxygen Delivery Method Room Air Positive well nourished and well developed; Negative for obese, cachectic, contractures or unkempt General Appearance ED: well developed; Negative for unkempt, cachectic or contractures Nutritional Appearance: Negative for cachectic or obese HEENT Reports moist mucous membranes normocephalic and atraumatic; Negative for trauma or tenderness Eyes PERRL and EOMs intact bilaterally Neck full ROM and supple General: Negative for tenderness Lymph Lymphatic: Negative for other Chest Wall inspection of chest normal and palpation of chest normal Resp normal respiratory effort Auscultation: Negative for rales, rhonchi or wheezes Cardio regular rate, regular rhythm, S1 normal heart sound, S2 normal heart sound and no murmurs GI non-tender, non-distended and no masses Inspection: Negative for abdominal distention Auscultation: normoactive bowel sounds Palpation: soft Extremity normal to inspection and full ROM Extremity Narrative: Except tenderness dorsum of the left hand and wrist. Consistent with overuse syndrome or tendinitis. No deformity. Normal range of motion and strength. No cellulitis. Neuro oriented x3, moves all extremities, no focal motor deficits and no sensory deficits noted Sensorium / Orientation: alert, oriented to person, oriented to place and oriented to time Motor Exam: strength 5/5 throughout Psych mental status grossly normal Appearance: Negative for unkempt Attitude: No agitated Mood & Affect: Negative for depressed Skin General Skin Exam: Negative for petechiae Lesions: no lesions Rashes: no rashes Trauma: no lacerations or abrasions MDM MDM MDM Narrative Medical decision making narrative: Patient has been using her hands a lot for work. She has a overuse syndrome or tendinitis of the dorsum of her left hand and wrist. She was instructed to ice, elevate and rest. Also Motrin for pain and inflammation. This should progressively improve. If not have it reevaluated. Discharge Plan Triage Chief Complaint: Upper Extremity Injury ED Provider: Carroll Mckay Dx/Rx/DC Orders Clinical Impression: Tendonitis Instructions: ED Tendonitis Prescriptions: No Action vit,[id number] 1 TABLET tablet 1 tab PO DAILY diphenhydramine HCl 50 MG capsule 50 mg PO PRN PRN (Reason: sleep aid) ibuprofen 600 MG tablet 600 mg PO Q6H PRN Qty: 30 0RF amoxicillin 500 MG tablet 500 mg PO TID Qty: 30 0RF Primary Care Provider: Sd Osman Referrals: Sd Osman DO [Primary Care Provider] - Activity Restrictions/Additional Instructions: Ice, elevate and motrin for pain and inflammation. Rest. Disposition Disposition: Home, Self Care Discharge Date/Time: 03/04/22 17:38
== END 2022-03-04 17:38 | disposition home or self-care (01) ==
LOC: ED 17:26
PROVIDERS: Emergency Provider Emergency Medicine; PCP Family Medicine; Visit Provider Emergency Medicine
DX: M77.8 Other enthesopathies, not elsewhere classified (principal); F17.210 Nicotine dependence, cigarettes, uncomplicated
CPT/HCPCS: 99282

== ENCOUNTER 2022-05-16 20:54 | Emergency (ER) | payer MEDICAID, SELFPAY ==
[2022-05-16 20:55] VITALS: BP 133/84; PULSE 88; RESP 16; TEMP 36.6; O2SAT 99; BMI 26.5
[2022-05-16] MEDS: Metoclopramide 10 MG/2 ML Vial IV (21:46)
[2022-05-16] MEDS: Ketorolac 30 MG/ML Syringe IV (21:46)
[2022-05-16 22:28] LABS: Absolute Lymphocyte Count 2.48 X10^3/uL (0.83-4.51); Absolute Neutrophil Count 5.1 X10^3/uL (2.0-7.7); Basophil# 0.04 X10^3/uL; Basophil% 0.5 % (0-1); Eosinophil# 0.07 X10^3/uL; Eosinophils% 0.8 % (0-5); Hematocrit 37.2 % (37-47); Hemoglobin 12.2 g/dL (12.0-15.0); Lymphocyte # 2.48 X10^3/ul (0.83-4.51); Mean Corp Hgb Conc 32.8 g/dL (32-36); Mean Corpuscular Hgb 31.3 pg (27.0-32.0); Mean Corpuscular Volume 95.4 fL (81-99); Mean Platelet Vol. 9.8 fl (6.2-12.0); Monocyte# 0.61 X10^3/uL; Monocyte% 7.4 % (0-10); NRBC Flagged by Analyzer 0 % (0-5); Neutrophil # 5.05 X10^3/uL (2.7-7.7); Neutrophil % 60.9 % (47-70); Platelet Count 250 K/mm3 (150-450); RBC Distribution Width CV 12.1 % (11.6-14.6); RBC Distribution Width SD 42.3 fl (35.1-43.9); White Blood Count 8.3 K/mm3 (4.4-11.0)
--- NOTE | 2022-05-16 22:29 | EDS_ITS ---
HPI History of Present Illness Chief Complaint: Headache Informant: patient Onset/Context/Timing Onset: Today Context: Gradual Timing: Continuous Quality -Headache: Positive for Similar Prior Headaches and Throbbing Location: bilateral parietal and retroorbital Current Severity: Moderate Maximum Severity: Moderate Worsened by: light Relieved by: nothing Associated Symptoms/Injury Associated Symptoms: Positive for Nausea and Photophobia; Negative for Fever, Vomiting, Numbness, Tingling or Visual Changes Injury - [place]: Negative for Direct Trauma or Fall Narrative Narrative: Patient states I have had a dental abscess for 2 years. In reality she has had a bad tooth that has abscessed off-and-on for the past 2 years. She was last on antibiotics about 3 weeks ago, and states since then, the tooth is not bothering her. She is due to see an oral maxillofacial surgeon tomorrow to have the tooth worked on, and she states that that finally this is going to happen after waiting for 1-2 years. She is concerned that the infection from her tooth is progressing to and around her neck and head. She states she has a history of migraines, and she has felt a lump in the back of her right neck that is new in the past day and she feels like all of this lymph node swelling in her neck has been giving her migraines. She has have another 1 today. She has maybe 4 of them per week and this is been going on for months. She pulls up a CT scan that she had relatively recently within the past month or 2, at [facility], that shows left posterior mandibular lymphadenopathy with no abscess or other acute abnormality. [facility] Medical History POTS (postural orthostatic tachycardia syndrome) Home Medications vits,calcium no.78-iron fumarate-folic acid 29 mg-1 mg tablet 1 tab PO DAILY 09/25/20 [History Last Taken 09/24/20 20:00 1 tab] atomoxetine 18 mg capsule (Strattera) 36 mg PO DAILY 05/16/22 [History Last Taken Unknown] propranolol 10 mg tablet 10 mg PO TID 05/16/22 [History Last Taken Unknown] Allergy/AdvReac Type Severity Reaction Status Date / Time cefaclor [From [facility]] Allergy Hives Verified 05/16/22 20:57 Surgical History History of loop electrical excision procedure (LEEP) Social History Smoking Status: Current every day smoker tobacco type: cigarettes ROS ROS ED Constitutional Constitutional ED: Denies chills or fever(s) Eyes Eyes: Denies blurry vision or diplopia ENT ENT ED: Denies ear pain or sore throat Cardiovascular Cardiovascular: Denies chest pain or palpitations Respiratory/Chest Respiratory/Chest: Denies cough or dyspnea Gastrointestinal Gastrointestinal: Reports nausea and vomiting; Denies abdominal pain or diarrhea Genitourinary Genitourinary ED: Denies dysuria or urinary frequency Musculoskeletal Musculoskeletal: Denies back pain or myalgias Integumentary Denies abscess or rash Neurologic Neurologic: Reports headache(s); Denies paresthesias or weakness EXAM Physical Exam Const Vital Signs: 05/16/22 20:55 05/16/22 22:59 Temperature 97.8 F Temperature Source Temporal Pulse Rate 88 Respiratory Rate 16 12 Blood Pressure 133/84 H Blood Pressure Mean 100 Pulse Ox 99 Oxygen Delivery Method Room Air HEENT Reports normocephalic and moist mucous membranes HEENT Narrative: Carried tooth #11, nontender, no gingivitis, no abscess, no trismus. No bleeding or discharge. Normal speech. No stridor. Normal posterior oropharynx, tonsils are symmetric and not edematous. atraumatic Eyes PERRL, EOMs intact bilaterally and conjunctivae normal Eyes Narrative: photophobia Neck supple and no meningeal signs Neck Narrative: There is a very mild subcutaneous swelling posterior about the neck, distal to the base of the skull, just to the right of the spine it is very mildly tender. There is no overlying erythema or lesion. No anterior or submandibular or other lymphadenopathy. Full range of motion without any difficulty, all the while talking to her friend and me. Resp normal respiratory effort and clear to auscultation bilaterally Extremity normal to inspection and full ROM Neuro oriented x3 and CN's II-XII intact bilaterally Sensorium / Orientation: awake and alert Speech: speech normal Gait (Neuro): normal gait Motor Exam: strength 5/5 throughout Psych mental status grossly normal Mood & Affect: anxious Skin Lesions: no lesions Rashes: no rashes MDM MDM MDM Narrative Medical decision making narrative: This patient is clinically well-appearing. She does not have an acute dental abscess at this time and I do not think she needs to be placed on more antibiotics. She describes that her tonsils were so large that an ENT wanted to take them out at 1 point, at this time they are not even close to each other and they do not appear to be acutely diseased. The small swelling in her posterior right neck is almost consistent with a lipoma it is lower than I would expect for a posterior cervical node and it is barely tender. She has no evidence of other lymphadenopathy objectively. I reassured her with regards to this and her recent CT, advising that she appears well and I do not think this is extension of infection, and rather I would advise treating her migraine tonight which she was amenable to. We also did a CBC and it was normal. After Toradol and Reglan she felt a lot better and was comfortable going home. I would offer her a dose of Decadron in order to help prevent recurrent migraines and to help with any swelling she may be experiencing in her neck, however she is getting dental surgery tomorrow and in order to avoid interfering with that, we decided to hold off and she understands that as well. Lab Data Attestation: I reviewed the patient's lab results. Labs: Laboratory Results - last 24 hr 05/16/22 22:20 WBC 8.3 RBC 3.90 L Hgb 12.2 Hct 37.2 MCV 95.4 MCH 31.3 MCHC 32.8 RDW Std Deviation 42.3 RDW Coeff of [place] 12.1 Plt Count 250 MPV 9.8 Immature Gran % (Auto) 0.400 Neut % (Auto) 60.9 Lymph % (Auto) 30.0 [place] % (Auto) 7.4 Eos % (Auto) 0.8 Baso % (Auto) 0.5 Absolute Neuts (auto) 5.1 Absolute Lymphs (auto) 2.48 Nucleated RBC % 0 Discharge Plan Triage Chief Complaint: Headache ED Provider: Pancho Fong Dx/Rx/DC Orders Clinical Impression: Migraine, Adenopathy, cervical, Dental caries Instructions: ED, Migraine (Classical) Prescriptions: No Action vit,[id number] 1 TABLET tablet 1 tab PO DAILY atomoxetine [Strattera] 18 mg Capsule 36 mg PO DAILY propranolol 10 mg tablet 10 mg PO TID Primary Care Provider: Sd Osman Referrals: Sd Osman, [Primary Care Provider] - Dentist,Your [STAFF PHYSICIAN] - Keep Darrin appointment Disposition Disposition: Home, Self Care Discharge Date/Time: 05/16/22 23:00
[2022-05-16 22:59] VITALS: RESP 12
== END 2022-05-16 23:00 | disposition home or self-care (01) ==
PROVIDERS: Emergency Provider Emergency Medicine; PCP Family Medicine; Visit Provider Emergency Medicine
DX: G43.909 Migraine, unspecified, not intractable, without status migrainosus (principal); K04.7 Periapical abscess without sinus; F17.210 Nicotine dependence, cigarettes, uncomplicated; I49.8 Other specified cardiac arrhythmias; Z79.899 Other long term (current) drug therapy; R59.0 Localized enlarged lymph nodes
CPT/HCPCS: 85025; 96374; 96375; 99283; A4216

== ENCOUNTER 2022-07-13 20:54 | Emergency (ER) | payer MEDICAID, SELFPAY ==
[2022-07-13 20:55] VITALS: BP 107/78; PULSE 115; RESP 18; TEMP 36.8; O2SAT 99; BMI 27.4
--- NOTE | 2022-07-13 21:58 | EDS_ITS ---
HPI History of Present Illness Chief Complaint: General Illness Informant: patient Narrative Narrative: Patient presents with about 5 days of myalgias, nonproductive cough, decreased appetite without nausea vomiting or diarrhea. She has had subjective fevers. She is also had an earache for about 4 days. She had some drainage that had some blood from the left ear. Child has similar symptoms except for the earache. PFSH PFS Medical History POTS (postural orthostatic tachycardia syndrome) Home Medications vits,calcium no.78-iron fumarate-folic acid 29 mg-1 mg tablet 1 tab PO DAILY 09/25/20 [History Last Taken 09/24/20 20:00 1 tab] atomoxetine 18 mg capsule (Strattera) 36 mg PO DAILY 05/16/22 [History Last Taken Unknown] propranolol 10 mg tablet 10 mg PO TID 05/16/22 [History Last Taken Unknown] amoxicillin 500 mg tablet 500 mg PO TID #30 tabs 07/13/22 [Rx Last Taken Unknown] Allergy/AdvReac Type Severity Reaction Status Date / Time cefaclor [From [facility]] Allergy Hives Verified 07/13/22 20:58 Surgical History History of loop electrical excision procedure (LEEP) Social History Smoking Status: Current every day smoker tobacco type: cigarettes ROS ROS ED Constitutional Constitutional ED: Reports fever(s) and subjective Eyes Eyes: Denies blurry vision, change in vision or diplopia ENT ENT ED: Reports ear pain, rhinorrhea, sore throat and other Details: Patient had a sore throat initially but that resolved Cardiovascular Cardiovascular: Denies chest pain or palpitations Respiratory/Chest Respiratory/Chest: Reports cough; Denies dyspnea or sputum Gastrointestinal Gastrointestinal: Denies abdominal pain, nausea or vomiting Genitourinary Genitourinary ED: Denies dysuria or hematuria Musculoskeletal Musculoskeletal: Reports myalgias Integumentary Denies rash Neurologic Neurologic: Denies paresthesias or other Endocrine Endocrinology: Denies polydipsia or polyuria Hematologic/Lymphatic Hematologic/Lymphatic: Denies easy bleeding or easy bruising Allergic/Immunologic Allergic/Immunologic ED: Denies urticaria EXAM Physical Exam Const Vital Signs: 11/19/22 20:55 07/13/22 21:39 Temperature 98.2 F Temperature Source Temporal Pulse Rate 115 H Respiratory Rate 18 Respiratory Effort Normal Non-Labored Respiratory Pattern Normal Blood Pressure 107/78 Blood Pressure Mean 87 Pulse Ox 99 Oxygen Delivery Method Room Air Positive well nourished and well developed General Appearance ED: well developed and NAD HEENT Reports moist mucous membranes HEENT Narrative: No sinus tenderness. Left tympanic membrane is actually quite red and bulging. I do not see signs of perforation. There is no bleeding or drainage at this time. Mastoid is not tender. Auricle and canal are not tender. Right side is normal. Eyes EOMs intact bilaterally General Eye ED: Negative for scleral icterus Neck no lymphadenopathy, supple and no JVD Resp normal respiratory effort and clear to auscultation bilaterally Cardio regular rate, regular rhythm and no murmurs GI normal to inspection, nondistended, normoactive bowel sounds and non-tender Palpation: soft Back/Spine no CVA tenderness Extremity normal to inspection General Extremety ED: Negative for edema or tenderness General Extremity: Negative for edema Neuro oriented x3 Psych mental status grossly normal Skin no rashes or lesions noted and no wounds MDM MDM MDM Narrative Medical decision making narrative: Patient's symptoms are actually most consistent with influenza A that we have been seeing quite a bit of. She is passed any consideration of treatment with Tamiflu. We discussed risks and benefits and agreed not to use this. However, she does have ear pain for 3 or so days. She has had purulent drainage. Although I do not see a perforation it does look to be red and bulging at this time. I will treat this. This was likely a secondary occurrence. We discussed expected course and reasons to return. Also, patient has allergy to Ceclor. But she can take cefdinir penicillin or amoxicillin without any difficulties Discharge Plan Triage Chief Complaint: General Illness ED Provider: Chivo Chiang Dx/Rx/DC Orders Clinical Impression: Acute left otitis media, Influenza-like illness Instructions: ED Influenza (Adult), ED Otitis Media Antibiotic ... Prescriptions: New amoxicillin 500 mg tablet 500 mg PO TID Qty: 30 0RF No Action vit,[id number] 1 TABLET tablet 1 tab PO DAILY atomoxetine [Strattera] 18 mg Capsule 36 mg PO DAILY propranolol 10 mg tablet 10 mg PO TID Primary Care Provider: Sd Osman Referrals: Sd Osman DO [Primary Care Provider] - 3-5 Days if not improving Disposition Disposition: Home, Self Care
== END 2022-07-13 22:27 | disposition home or self-care (01) ==
PROVIDERS: Emergency Provider Emergency Medicine; PCP Family Medicine; Visit Provider Emergency Medicine
DX: H66.92 Otitis media, unspecified, left ear (principal); F17.210 Nicotine dependence, cigarettes, uncomplicated
CPT/HCPCS: 99282